=== PATIENT | male | born 1950 | race Caucasian/White ===

== ENCOUNTER 2018-08-11 | Inpatient (IN) | payer OTHER, SELFPAY ==
[2018-08-11 01:00] LABS: #Eosinphils 0.1 thou/uL (0.0-0.7); #Lymphocytes 1.7 thou/uL (1.20-3.40); #Monocytes 1.1 thou/uL (0.11-0.59); #Neutrophils 12.5 thou/uL (1.40-6.50); %Basophils 0.2 % (0.0-1.0); %Eosinophils 0.7 % (0.0-10.0); %Lymphocytes 10.9 % (21.0-51.0); %Monocytes 7.3 % (0.0-10.0); %Neutrophils 80.9 % (42.0-75.0); Hemoglobin 6.5 g/dL (14.0-18.0); Mean Corpuscular HGB CONC 33.5 g/dL (32.0-36.0); Mean Corpuscular Hemoglobin 32.9 pg (27.0-31.0); Mean Corpuscular Volume 98.2 fL (78.0-98.0); Mean Platelet Volume 7.1 fL (7.4-10.4); Platelet Count 367 thou/uL (130-400); RBC Distribution Width 13.8 % (11.5-14.5); Red Blood Cell (RBC) Count 1.98 mill/uL (4.70-6.10); White Blood Cell (WBC) Count 15.5 thou/uL (4.8-10.8)
[2018-08-11 01:02] LABS: INR-International Normal Ratio 1.4; PTT 30.3 SEC (22.9-36.1); Prothrombin Time 17.5 SEC (12.0-14.7)
[2018-08-11 01:17] LABS: ALT (SGPT) 15 U/L (8-55); AST (SGOT) 21 U/L (5-34); Albumin 2.7 g/dL (3.4-4.8); Alkaline Phosphatase 57 U/L (40-150); Anion Gap 15 mmol/L (10-20); BUN (Urea Nitrogen) 48 mg/dL (8.4-25.7); Bilirubin, Total 0.2 mg/dL (0.2-1.2); CK (CPK) 195 U/L (30-200); Calc. Creatinine Clearance 0 mL/min (70-130); Calcium 7.3 mg/dL (7.8-10.44); Carbon Dioxide 21 mmol/L (23-31); Chloride 96 mmol/L (98-107); Estimated GFR-MDRD 75; Glucose 117 mg/dL (80-115); Lipase 4 U/L (8-78); Potassium 5.3 mmol/L (3.5-5.1); Protein, Total 4.7 g/dL (5.8-8.1); Sodium 127 mmol/L (136-145)
[2018-08-11 01:22] LABS: CKMB 5.9 ng/mL (0-6.6); Troponin I Less than 0.010 ng/mL (< 0.028)
[2018-08-11] MEDS ORDERED: Pantoprazole 40 MG VIAL ONE (01:38)
[2018-08-11] MEDS ORDERED: Ondansetron HCl/PF 4 MG/2 ML Vial IVP PRN (02:20)
[2018-08-11] MEDS ORDERED: cefTRIAXone\\ROCEPHIN 1 GM in Sodium Chloride 0.9% 100 ML IVPB SCH (03:00)
[2018-08-11] MEDS: Piperacillin/Tazobactam 3.375 GM in Sodium Chloride 0.9% 100 ML IVPB SCH ×4 (03:30→20:59)
[2018-08-11] MEDS: Sodium Chloride 0.9% 1,000 ML IV SCH ×3 (03:30→22:20)
[2018-08-11] MEDS: Pantoprazole 80 MG in Sodium Chloride 0.9% 100 ML IVP SCH ×2 (03:34→23:29)
--- NOTE | 2018-08-11 04:25 | HP ---
PRIMARY CARE PHYSICIAN: Patient belongs to the [place]. CODE STATUS: FULL CODE. TIME OF EVALUATION: 1:50 a.m. CHIEF COMPLAINT: "I saw blood in my stool." HISTORY OF PRESENT ILLNESS: This is a 68-year-old male patient with past medical history of hypertension, high cholesterol, hyperlipidemia came to the hospital after having multiple lower gastrointestinal bleeding, with red blood and maroon blood per rectum. Patient is not a good historian, he reported he had some right flank pain, he had multiple episodes, with no clear triggers, no alleviating factors, patient was on aspirin, never had any GI workup. REVIEW OF SYSTEMS: Constitutional: No fever or chills or generalized weakness. Respiratory: No cough, sputum production, or shortness of breath. Cardiovascular: No chest pain or palpitations. Gastrointestinal: Right flank pain, abdominal tenderness, and red in the stools. No nausea, vomiting, diarrhea, or abdominal pain. RACING MANAGER: No dizziness, headache, or feeling lightheaded. Genitourinary: No burning on urination. Extremities: No leg swelling. All other systems reviewed were negative except for the findings mentioned above. PAST MEDICAL HISTORY: As mentioned in the HPI. PAST SURGICAL HISTORY: Left lung surgery. SOCIAL HISTORY: Lives with family. FAMILY HISTORY: Reviewed and noncontributory for current presentation. DRUG ALLERGIES: No known drug allergies reported. REPORTED MEDICATIONS: Hydrochlorothiazide, metoprolol, simvastatin, olanzapine , fosinopril. PHYSICAL EXAMINATION: VITAL SIGNS: On presentation, blood pressure 94/38 with heart rate 107, respiratory rate was 22, temperature 98.4, pain was 9/10. Blood pressure was improved after the first infusion of some IV fluids in ER. GENERAL APPEARANCE: Patient is alert, oriented, not in any acute distress. HEENT: Eyes, normal conjunctivae. Moist oral mucosa. Patient does have some mild blood in the mouth and in the nose. He reportedly fell and broke his nose. RESPIRATORY: Bilateral air entry. No rales, no wheezes, symmetric expansion. CARDIOVASCULAR: Normal rate, regular rhythm. No murmurs, no gallop, no edema. Patient occasionally mildly tachycardic with a heart rate of 107. ABDOMEN: Soft, tender. Normal bowel sounds. MUSCULOSKELETAL: Baseline range of motion and strength. EXTREMITIES: No tenderness. SKIN: Warm and intact. No pallor, rash, no redness. Peripheral pulses are present. Capillary refills seem to be intact. NEUROLOGIC: Baseline sensory. No evidence of any new focal weakness. Baseline speech. Cranial nerve seems to be intact. PSYCHIATRIC: Patient is in good mood. No anxiety, oriented, optimal judgment. IMAGING DATA: EKG was reviewed. The patient has sinus tachycardia with short VT at the rate of 101. No significant findings were seen on the EKG. QRS 72, QT corrected 453. Chest x-ray was reviewed by myself. Patient seems to have some chronic changes in the right lower lobe more than on the left, x-ray was rotated. Heart is paced to the right possible dextrocardia versus rotation of the x-ray. Official report is pending from the right ear bleeding, we will need to be followed. LABORATORY DATA: Labs are reviewed. Patient has a white count of 15.5, hemoglobin 6.5, MCV 98, platelet count 367, neutrophil 80.9. Coagulation was normal. INR mildly elevated. Chemistry: Sodium 127, potassium 5.3, chloride 96, carbon dioxide 21, anion gap 15, BUN 48, creatinine 0.99, GFR 75, glucose 117. Lactic acid 5.0, calcium 7.3. Total bilirubin 0.2, AST 21, ALT 15, alkaline phosphatase 57, CK 195. Troponin less than 9. Serum total protein 4.7 , albumin 2.7, globulin 2.0, lipase 4.9. ASSESSMENT AND PLAN: The patient will be placed in the hospital with following medical problems: 1. Severe gastrointestinal bleeding. Patient has multiple maroon stools. Reportedly, patient is receiving 3 units of transfusion, patient presented with shortness of breath and we will monitor hemoglobin, GI consult. Protonix, transfusion hydrate as needed to keep hemodynamic stability. 2. Possible right lower lobe aspiration pneumonia. Patient had reported that he fell on noncircumstances, patient is not a good historian. Right lower lobe had some haziness on the x-ray. We will cover with Zosyn at this point, patient also has leukocytosis, further plan to be adjusted depending on the initial workup in the patient's clinical course. 3. Mildly elevated INR, unclear etiology. Patient has any underlying liver disease, only medication reportedly taking was aspirin. At this point, we will transfuse, we will correct the INR if it were more than 1.5. 4. Hyponatremia, sodium 127 is moderate, we will monitor gradually, we will adjust treatment as needed. Patient will get some NS as part of the IV fluid resuscitation for the GI bleeding. We will adjust treatment depending on further reports later on. 5. Hyperkalemia. Potassium is elevated at 5.3, this is mild, we will monitor, we will adjust treatment as needed. 6. High BUN, normal creatinine relation is higher than 3:1, this might be in favor of upper GI bleeding. We will treat underlying condition. 7. Hyperglycemia. No reported history of diabetes likely due to acute physical distress, we will monitor, no need for any acute intervention at this point. We will adjust treatment as needed. 8. Lactic acidosis likely secondary to hypotension secondary to hypovolemia. Another possibility could be underlying sepsis, patient already covered with antibiotics, patient receiving aggressive treatment for GI bleeding and hypotension. 9. History of hypertension, this problem is uncontrolled, he is chronic. Patient presented with hypotension due to bleeding, we will restart home medications for now, this will need to be addressed later on. 10. Hyperlipidemia, this is chronic, low-cholesterol diet is advised. Continue simvastatin. MTDD
[2018-08-11] MEDS ORDERED: Sodium Chloride 0.9% 1,000 ML IV SCH ×3 (04:30→22:45)
[2018-08-11 05:52] LABS: #Lymphocytes 1.6 thou/uL (1.20-3.40); #Neutrophils 10.5 thou/uL (1.40-6.50); %Basophils 0.4 % (0.0-1.0); %Eosinophils 0.2 % (0.0-10.0); %Lymphocytes 11.9 % (21.0-51.0); %Monocytes 7.3 % (0.0-10.0); %Neutrophils 80.2 % (42.0-75.0); Hemoglobin 7.3 g/dL (14.0-18.0); Mean Corpuscular HGB CONC 33.3 g/dL (32.0-36.0); Mean Corpuscular Hemoglobin 31.5 pg (27.0-31.0); Mean Corpuscular Volume 94.5 fL (78.0-98.0); Mean Platelet Volume 7.2 fL (7.4-10.4); Platelet Count 276 thou/uL (130-400); RBC Distribution Width 14.1 % (11.5-14.5); Red Blood Cell (RBC) Count 2.32 mill/uL (4.70-6.10); White Blood Cell (WBC) Count 13.1 thou/uL (4.8-10.8)
[2018-08-11 05:53] LABS: Lactic Acid 2.4 mmol/L (0.5-2.2)
[2018-08-11 05:59] LABS: Anion Gap 12 mmol/L (10-20); BUN (Urea Nitrogen) 44 mg/dL (8.4-25.7); Calc. Creatinine Clearance 90 mL/min (70-130); Carbon Dioxide 22 mmol/L (23-31); Chloride 100 mmol/L (98-107); Estimated GFR-MDRD 90; Glucose 123 mg/dL (80-115); Sodium 129 mmol/L (136-145)
[2018-08-11] MEDS ORDERED: Prevnar 13-Val Conj/PF 0.5 ML SYRINGE IM ONE (06:30)
[2018-08-11 10:17] LABS: Hemoglobin 6.8 g/dL (14.0-18.0)
--- NOTE | 2018-08-11 12:10 | CT ---
PRELIMINARY REPORT/[facility]/EMERGENCY AFTER HOURS PROCEDURE: EXAM: CT Head Without Intravenous Contrast CLINICAL HISTORY: 68 years old, male; Injury or trauma; Fall; Initial encounter; Abrasion; Not specified; Patient HX: U nwitnessed fall, neck pain, headache TECHNIQUE: Axial computed tomography images of the head/brain without intravenous contrast. COMPARISON: No relevant prior studies available. FINDINGS: No definite acute skull fracture. The left mandibular condyle appears asymmetrically placed anteriorly relative to the right. This coul d be positional, but post-traumatic subluxation/dislocation not excluded. Please correlate clinically . Included paranasal sinuses are essentially clear. No acute intracranial hemorrhage or mass effect. Ventricle size is normal for age. There is mild, relatively symmetrical decreased attenuation in the periventricular white matter, like ly from microvascular disease. Suspect very small old lacunar infarcts in the basal ganglia regions bilaterally. No definite acute infarct by CT. IMPRESSION: No acute intracranial bleed or mass effect. Changes of microvascular disease, and very small old lacunar infarcts. The left mandibular condyle appears asymmetrically placed anteriorly relative to the right. This coul d be positional, but post-traumatic subluxation/dislocation not excluded. Please correlate clinically . Thank you for allowing us to participate in the care of your patient. Dictated and Authenticated by: Corby Hernandez MD 08/11/2018 3:51 AM Central Time ([place] & [place]) FINAL REPORT EMERGENT AFTER HOURS CT OF BRAIN PERFORMED WITHOUT CONTRAST ENHANCEMENT: HISTORY: Fall with neck pain and headache. FINDINGS: The ventricular and cisternal system shows fairly age-appropriate change. Decreased attenuation of t he periventricular white matter is consistent with some chronic white matte change. There are no sig ns for intracerebral hemorrhage or extraaxial fluid collections. Mastoid air cells and visualized si nuses appear clear. IMPRESSION: 1. No acute intracranial abnormalities. Chronic white matter change. 2. This report is in agreement with the temporary report issued by [facility]. POS: [facility]
--- NOTE | 2018-08-11 12:12 | CT ---
PRELIMINARY REPORT/[facility]/EMERGENCY AFTER HOURS PROCEDURE: EXAM: CT Cervical Spine Without Intravenous Contrast CLINICAL HISTORY: 68 years old, male; Injury or trauma; Fall; Initial encounter; Blunt trauma; Injury details: Unwitnes sed fall, neck pain, headache TECHNIQUE: Axial computed tomography images of the cervical spine without intravenous contrast. COMPARISON: No relevant prior studies available. FINDINGS: On axial CT images, no definite acute cervical spine fracture is visible. Sagittal and coronal reconstructions show no cervical spine fracture or subluxation. Mild to moderate degenerative disc changes and facet joint arthritis at several levels. No definite/significant disc herniation by CT, MRI could be more sensitive if clinically indicated. The left mandibular condyle appears asymmetrically placed anteriorly relative to the right. This coul d be positional, but post-traumatic subluxation/dislocation not excluded. Please correlate clinically . Prominent emphysematous changes in the upper lungs. IMPRESSION: No definite acute cervical spine fracture or subluxation by CT. Other findings discussed above. Thank you for allowing us to participate in the care of your patient. Dictated and Authenticated by: Corby Hernandez MD 08/11/2018 3:56 AM Central Time ([place] & [place]) FINAL REPORT CT CERVICAL SPINE WITHOUT CONTRAST: HISTORY: Fall. Posttraumatic pain. COMPARISON: None. FINDINGS: This report is in agreement with the preliminary report by [facility]. No posttraumatic sequelae. Additional findings as above, specifically with regard to the mandible. POS: [facility]
[2018-08-11] MEDS ORDERED: Octreotide Acetate 1,250 MCG in Sodium Chloride 0.9% 250 ML 250 ML IVPB SCH (12:30)
[2018-08-11] MEDS ORDERED: Octreotide Acetate 50 MCG/ML AMP SLOW IVP SCH (12:30)
[2018-08-11] MEDS ORDERED: Midazolam HCl 2 mg/2 ml Vial ONE (12:59)
[2018-08-11] MEDS ORDERED: Norepinephrine 8 MG/0.9% NS 250 ML ONE (13:34)
[2018-08-11] MEDS ORDERED: EPINEPHrine 1 MG/10 ML Abboject SYRINGE ONE (13:58)
[2018-08-11] MEDS ORDERED: ePHEDrine/0.9% NaCl/PF SYRINGE 50 mg/10 ml ONE (13:58)
[2018-08-11] MEDS ORDERED: Calcium Chloride 1 GM/10 ML Abboject SYRINGE ONE (13:58)
[2018-08-11] MEDS ORDERED: PHENYLEPHRINE-NS 100 MCG/ML 10 ML SYRINGE ONE (13:58)
[2018-08-11] MEDS ORDERED: PROPOFOL 200 MG/20 ML VIAL ONE (13:58)
[2018-08-11] MEDS ORDERED: Lidocaine 1% PF 5 ML VIAL ONE (13:58)
[2018-08-11] MEDS ORDERED: Dexamethasone 20 MG/5 ML VIAL ONE ×2 (13:58)
[2018-08-11] MEDS ORDERED: Succinylcholine Chloride 20 MG/ML 10 ml SYRINGE FS ONE (13:58)
[2018-08-11] MEDS ORDERED: Propofol 1,000 MG/100 ML VIAL IV ONE (14:39)
[2018-08-11 14:52] LABS: Actual Bicarbonate (HCO3a) 13.6 mEq/L (22-28); Base Excess (BEa) -17.4 mEq/L (-2.0 to +3.0); CO2 Tension 55.6 mmHg (35.0-45.0); Calcium, Ionized 1.06 mmol/L (1.12-1.30); Carboxyhemoglobin (COHb) 1.7 gm% (0.0-3.0); Hemoglobin (Hb) 11.3 g/dL (14.0-18.0); O2 Tension (PaO2) 137.8 mmHg (> 80.0); Potassium - ABG Lab 4.71 mmol/L (3.70-5.30)
[2018-08-11 14:54] LABS: Puncture Site LINE; pH, Arterial 7.01 (7.35-7.45)
[2018-08-11] MEDS ORDERED: Sodium Bicarb 50 MEQ/50 ML Abboject 8.4% SYRINGE ONE ×2 (15:09→16:35)
[2018-08-11] MEDS ORDERED: Sodium Bicarb 50 MEQ/50 ML Abboject 8.4% SYRINGE IVP SCH ×4 (15:15→17:00)
--- NOTE | 2018-08-11 15:22 | CON ---
DATE OF CONSULTATION: 08/11/2018 HISTORY OF PRESENT ILLNESS: Mr. Fernandes is a 68-year-old male. He has paranoid schizophrenia. H e has already pulled out of his central line. The nurses have placed him 2 midlines in him. He was admitted with hypotension, severe anemia, and a history of maroon stool. Blood pressures have been v ariable depending on agitation and position. OBJECTIVE: VITAL SIGNS: His heart rate is 123, respiratory rates in the 20s, oximetry is 94. GENERAL: Keeps his eyes closed. He is a little irritated, but cooperative. LUNGS: Clear. HEART: Regular rhythm. ABDOMEN: Soft and nontender. EXTREMITIES: Without clubbing, cyanosis, or edema. LABORATORY DATA: Hemoglobin 05:20 was 7.3, at 10:00 was 6.8. He is currently receiving blood when I evaluated him. His renal function was remarkable for a BUN of 44 with a creatinine of 0.8. Lactate was up, but is improved. Albumin was 2.7. Family says he has been spending a lot of time st anding up, bend over a table, complaining of back pain for the last few weeks. IMPRESSION: 1. Gastrointestinal blood loss by history. He has had no rectal bleeding since he has been admitted . 2. Back pain. I would wonder about retroperitoneal bleeding, but he does not really have a history of anything that would normally lead to retroperitoneal bleeding since his anticoagulation. Prior to admission, he was on hydrochlorothiazide, a beta riaz, a lipid drug, fosinopril, and keith zapine. He is currently going down for endoscopy. Intubation may be appropriate just because of his agitatio n, and once we document he is not bleeding, then we could quickly wean him from mechanical ventilatio n. He will continue with transfusions. We will be happy to follow with the other physician's caring for him. We will examine him after his endoscopy when he is intubated. Critical care time was 30 minutes.
[2018-08-11 15:36] LABS: Actual Bicarbonate (HCO3a) 16.4 mEq/L (22-28); Base Excess (BEa) -11.3 mEq/L (-2.0 to +3.0); Carboxyhemoglobin (COHb) 1.1 gm% (0.0-3.0); Hemoglobin (Hb) 10.6 g/dL (14.0-18.0); O2 Tension (PaO2) 113.3 mmHg (> 80.0); Potassium - ABG Lab 4.34 mmol/L (3.70-5.30); Puncture Site LINE; pH, Arterial 7.19 (7.35-7.45)
[2018-08-11] MEDS ORDERED: Fentanyl BOLUS 250 ML IVPB PRN (15:36)
[2018-08-11] MEDS ORDERED: DISCONTINUE PREVIOUS NARCOTIC PAIN MEDICATIONS AND BENZODIAZEPINES FS SCH (15:36)
[2018-08-11] MEDS: Lorazepam 2 MG/ML VIAL SLOW IVP PRN ×2 (15:46→20:59)
[2018-08-11] MEDS: fentaNYL Citrate/PF 2,000 MCG in Sodium Chloride 0.9% 60 ML IV SCH (16:01)
[2018-08-11 16:28] LABS: Actual Bicarbonate (HCO3a) 20.8 mEq/L (22-28); Base Excess (BEa) -7.3 mEq/L (-2.0 to +3.0); CO2 Tension 53.6 mmHg (35.0-45.0); Calcium, Ionized 0.98 mmol/L (1.12-1.30); Carboxyhemoglobin (COHb) 1.3 gm% (0.0-3.0); Hemoglobin (Hb) 11.4 g/dL (14.0-18.0); O2 Tension (PaO2) 86.3 mmHg (> 80.0); Potassium - ABG Lab 4.37 mmol/L (3.70-5.30)
[2018-08-11 16:30] LABS: Puncture Site LINE; pH, Arterial 7.21 (7.35-7.45)
[2018-08-11 16:50] LABS: Hemoglobin 10.6 g/dL (14.0-18.0); Mean Corpuscular HGB CONC 32.5 g/dL (32.0-36.0); Mean Corpuscular Hemoglobin 29.6 pg (27.0-31.0); Mean Platelet Volume 7.8 fL (7.4-10.4); Platelet Count 130 thou/uL (130-400); RBC Distribution Width 13.3 % (11.5-14.5); Red Blood Cell (RBC) Count 3.59 mill/uL (4.70-6.10)
--- NOTE | 2018-08-11 16:53 | PRG ---
DATE OF SERVICE: 08/11/2018 SUBJECTIVE: Mr. Fernandes was evaluated an endoscopy after his EGD. He had a massive duodenal ulce r that was injected. It was not actively bleeding. He did require a large volume of blood products while he was in the en doscopy suite. He was transferred up to the Critical Care Unit. His pH on blood gas was just slight ly over 7.0. His rate was turned from 16-30 with volume ventilation. He was given 3 amps of bicarbonate. Repeat blood gas 30 minutes later shows a pH just under 7.20. He is currently receiving 3 more amps of bicarbonate. We will repeat a blood gas in 45 minutes. His hemoglobin in first blood gas was approximately 11 gra ms. Second blood gas approximately 10 grams. This will continue to be monitored. Critical care time, additional 45 minutes.
[2018-08-11 16:58] LABS: ALT (SGPT) 357 U/L (8-55); AST (SGOT) 474 U/L (5-34); Albumin 2.3 g/dL (3.4-4.8); Alkaline Phosphatase 41 U/L (40-150); Anion Gap 18 mmol/L (10-20); BUN (Urea Nitrogen) 37 mg/dL (8.4-25.7); Bilirubin, Total 0.3 mg/dL (0.2-1.2); Calc. Creatinine Clearance 87 mL/min (70-130); Calcium 6.7 mg/dL (7.8-10.44); Carbon Dioxide 19 mmol/L (23-31); Chloride 108 mmol/L (98-107); Estimated GFR-MDRD 86; Globulin 1.5 g/dL (2.4-3.5); Glucose 138 mg/dL (80-115); Magnesium 1.3 mg/dL (1.6-2.6); Phosphorus 4.5 mg/dL (2.3-4.7); Potassium 4.4 mmol/L (3.5-5.1); Protein, Total 3.8 g/dL (5.8-8.1); Sodium 141 mmol/L (136-145)
[2018-08-11] MEDS ORDERED: Sodium Bicarbonate 150 MEQ in Dextrose 5% in Water 1,000 ML IV SCH (17:00)
[2018-08-11 17:02] LABS: Troponin I 0.058 ng/mL (< 0.028)
[2018-08-11 17:06] LABS: CKMB 13.9 ng/mL (0-6.6)
[2018-08-11 17:06] LABS: INR-International Normal Ratio 1.7; PTT 32.2 SEC (22.9-36.1); Prothrombin Time 20.4 SEC (12.0-14.7)
[2018-08-11] MEDS ORDERED: Potassium Chloride 40 MEQ in Premix Bag 1 BAG IVPB PRN (17:18)
[2018-08-11] MEDS ORDERED: Potassium Phosphate 15 MMOL in Sodium Chloride 0.9% 250 ML 250 ML IV PRN (17:18)
[2018-08-11] MEDS ORDERED: Magnesium 2 GM/NS 0.9% 100 ML 2 GM in Premix Bag 1 BAG IVPB PRN (17:18)
[2018-08-11] MEDS ORDERED: CCU ELECTROLYTE REPLACEMENT PROTOCOL FS PRN (17:18)
[2018-08-11] MEDS ORDERED: Potassium Chloride 20 MEQ TAB PO PRN (17:18)
[2018-08-11] MEDS ORDERED: Potassium Phosphate 9 MMOL in Sodium Chloride 0.9% 100 ML IVPB PRN (17:18)
[2018-08-11] MEDS ORDERED: Magnesium Oxide 400 MG TAB PO PRN ×2 (17:18)
[2018-08-11] MEDS ORDERED: Potassium Phosphate 12 MMOL in Sodium Chloride 0.9% 250 ML 250 ML IV PRN (17:18)
[2018-08-11 17:20] LABS: Band 19 % (5-11); Lymphocytes 3 % (21-51); MDiff Complete? YES; Monocytes 4 % (0-10); Neutrophil 74 % (42-75); PLT Morphology Comment Appears Adequate
[2018-08-11] MEDS ORDERED: Magnesium Sulfate 2 GM in Sodium Chloride 0.9% 100 ML IVPB SCH (17:30)
[2018-08-11 17:45] LABS: Base Excess (BEa) -1.2 mEq/L (-2.0 to +3.0); CO2 Tension 48.4 mmHg (35.0-45.0); Calcium, Ionized 0.92 mmol/L (1.12-1.30); Carboxyhemoglobin (COHb) 1.1 gm% (0.0-3.0); Hemoglobin (Hb) 10.4 g/dL (14.0-18.0); O2 Tension (PaO2) 65.3 mmHg (> 80.0); Potassium - ABG Lab 4.24 mmol/L (3.70-5.30); pH, Arterial 7.33 (7.35-7.45)
[2018-08-11 17:48] LABS: Puncture Site LINE
--- NOTE | 2018-08-11 18:20 | PRG ---
DATE OF SERVICE: 08/11/2018 SUBJECTIVE: Ruiz Fernandes's hemodynamics have been stable. His hemoglobin has been stable on s erial blood gases. It is approximately 10 g now. His pH is up over 7.3 now with a bicarbonate drip, multiple bicarbonate boluses and hyperventilation. Hopefully, there will be no recurrence of bleeding and his acid base disorder will gradually resolve by the morning. I doubt he will be extubated in the morning. We will continue with the current crit ical care. We will repeat another blood gas later this evening.
[2018-08-11] MEDS: Sodium Bicarbonate 150 MEQ, Admixture Fee 1 EACH in Dextrose 5% in Water 1,000 ML IV SCH ×2 (18:26→23:29)
--- NOTE | 2018-08-11 18:52 | PDOC.EVN ---
Event Note - Event Note Event Note: Chart reviewed and pt seen while on IMCU. Discussed with GI service. Pt with large-volume GI bleed, found to have a large gastric ulcer on EGD. General surgery has been consulted by GI service. If he bleeds again tonight, may need emergent surgery.
[2018-08-11 20:05] LABS: Hemoglobin 9.8 g/dL (14.0-18.0)
--- NOTE | 2018-08-11 22:13 | CON ---
DATE OF CONSULTATION: 08/11/2018 CHIEF COMPLAINT: GI bleed. HISTORY: This is a 68-year-old male who came to the emergency room this morning with rectal bleeding , had an EGD this afternoon showing erosive esophagitis and a large duodenal ulcer with active bleedi ng. This was cauterized. He is currently receiving blood products. PAST MEDICAL HISTORY: Significant for hypertension, hyperlipidemia, and paranoid schizophrenia. PAST SURGICAL HISTORY: He has had some type of lung surgery. ALLERGIES: No known drug allergies. MEDICATIONS: Hydrochlorothiazide, metoprolol, simvastatin, olanzapine, and fosinopril. PHYSICAL EXAMINATION: VITAL SIGNS: His temperature is 98.8, pulse 128, blood pressure 135/53. GENERAL: He is intubated and sedated on a vent. HEENT: Otherwise, unremarkable. LUNGS: Clear. HEART: Regular rate and rhythm. ABDOMEN: Distended. He is passing melena actively. LABORATORY DATA: His last H&H was at 10:00 a.m. which was 6.8 and 20.8. At that time, he has been g iven 3 units of packed cells. He has since been given at least another 3 units of packed cells and F FP and platelets. ASSESSMENT: Upper secondary to large duodenal ulcer. PLAN: We will continue to monitor carefully. He may need surgical intervention.
[2018-08-11] MEDS: Albumin 25% 25 GM/100 ML BOT IVPB SCH (22:39)
[2018-08-11 23:12] LABS: Actual Bicarbonate (HCO3a) 26.6 mEq/L (22-28); Base Excess (BEa) 3.4 mEq/L (-2.0 to +3.0); CO2 Tension 35.1 mmHg (35.0-45.0); Calcium, Ionized 1.01 mmol/L (1.12-1.30); Carboxyhemoglobin (COHb) 1.2 gm% (0.0-3.0); Hemoglobin (Hb) 9.8 g/dL (14.0-18.0); O2 Tension (PaO2) 62.9 mmHg (> 80.0); Potassium - ABG Lab 3.61 mmol/L (3.70-5.30); Puncture Site ALINE
[2018-08-11 23:13] LABS: ALV-art Gradient 178.425 (0-20)
[2018-08-12] MEDS ORDERED: Sodium Chloride 0.9% 1,000 ML IV SCH (01:00)
[2018-08-12 01:38] LABS: Actual Bicarbonate (HCO3a) 27.7 mEq/L (22-28); Base Excess (BEa) 2.2 mEq/L (-2.0 to +3.0); CO2 Tension 47.8 mmHg (35.0-45.0); Calcium, Ionized 1.02 mmol/L (1.12-1.30); Carboxyhemoglobin (COHb) 1.6 gm% (0.0-3.0); Hemoglobin (Hb) 9.6 g/dL (14.0-18.0); O2 Tension (PaO2) 66.2 mmHg (> 80.0); pH, Arterial 7.38 (7.35-7.45)
[2018-08-12 01:39] LABS: Puncture Site ALINE
[2018-08-12 02:31] LABS: Actual Bicarbonate (HCO3a) 28.8 mEq/L (22-28); Base Excess (BEa) 3.4 mEq/L (-2.0 to +3.0); CO2 Tension 47.7 mmHg (35.0-45.0); Calcium, Ionized 1.02 mmol/L (1.12-1.30); Carboxyhemoglobin (COHb) 1.3 gm% (0.0-3.0); Hemoglobin (Hb) 9.2 g/dL (14.0-18.0); O2 Tension (PaO2) 65.8 mmHg (> 80.0); Potassium - ABG Lab 3.71 mmol/L (3.70-5.30)
[2018-08-12 02:32] LABS: ALV-art Gradient 159.775 (0-20); Puncture Site ALINE
[2018-08-12] MEDS: Piperacillin/Tazobactam 3.375 GM in Sodium Chloride 0.9% 100 ML IVPB SCH ×4 (02:55→20:36)
[2018-08-12] MEDS ORDERED: Midazolam HCl 2 mg/2 ml Vial ONE ×2 (03:11→04:32)
[2018-08-12] MEDS ORDERED: Fentanyl 100 MCG/2 ML VIAL ONE ×2 (03:11→04:45)
[2018-08-12] MEDS ORDERED: Promethazine HCl 25 MG/ML VIAL IM/IV PRN (04:53)
[2018-08-12] MEDS: Morphine 4 MG/ML VIAL SLOW IVP PRN ×3 (05:22→14:42)
[2018-08-12 05:32] LABS: INR-International Normal Ratio 1.5; Prothrombin Time 18.3 SEC (12.0-14.7)
[2018-08-12 05:45] LABS: ALT (SGPT) 401 U/L (8-55); AST (SGOT) 618 U/L (5-34); Albumin 2.6 g/dL (3.4-4.8); Alkaline Phosphatase 40 U/L (40-150); Anion Gap 10 mmol/L (10-20); BUN (Urea Nitrogen) 22 mg/dL (8.4-25.7); Bilirubin, Total 0.4 mg/dL (0.2-1.2); Calc. Creatinine Clearance 107 mL/min (70-130); Carbon Dioxide 31 mmol/L (23-31); Chloride 108 mmol/L (98-107); Estimated GFR-MDRD Greater than 90; Globulin 1.8 g/dL (2.4-3.5); Glucose 134 mg/dL (80-115); Phosphorus 3.9 mg/dL (2.3-4.7); Potassium 4.2 mmol/L (3.5-5.1); Protein, Total 4.4 g/dL (5.8-8.1); Sodium 145 mmol/L (136-145)
[2018-08-12] MEDS: Albumin 25% 25 GM/100 ML BOT IVPB SCH ×4 (06:05→23:08)
[2018-08-12 06:08] LABS: Hemoglobin 9.5 g/dL (14.0-18.0); Mean Corpuscular HGB CONC 33.1 g/dL (32.0-36.0); Mean Corpuscular Volume 90.4 fL (78.0-98.0); Mean Platelet Volume 7.8 fL (7.4-10.4); Platelet Count 158 thou/uL (130-400); Red Blood Cell (RBC) Count 3.18 mill/uL (4.70-6.10); White Blood Cell (WBC) Count 13.3 thou/uL (4.8-10.8)
[2018-08-12 06:10] LABS: Band 18 % (5-11); Lymphocytes 6 % (21-51); MDiff Complete? YES; Monocytes 7 % (0-10); Neutrophil 69 % (42-75)
--- NOTE | 2018-08-12 06:21 | CON ---
DATE OF CONSULTATION: 08/11/2018 History comes from the patient's mother. HISTORY OF PRESENT ILLNESS: Mr. Fernandes is a 68-year-old man, who lives in [facility], near his mother. He has schizophrenia. He gets [facility] care from [facility] and he sees Dr. Soni there. Connie arently for several weeks now, he has been having some dizziness and issues with standing at times. Apparently, his mother states she had gone to run some errands and came home yesterday afternoon when he did not come out of his house when she pulled him to drive. She went over to check on him, and roney dickens complained of having a lot of diarrhea at that time. She had seen some of his bowel movements all that was bloody. She had him lay down on the floor, as he was very weak and EMS was summoned. He ca me to the hospital here and was found to have a hemoglobin of 6.5 at about 12:30 last night, his whit e count was 15, platelet count was 367. INR was 1.4 and a comp met profile was normal for a BUN of 4 8, creatinine of 0.9, sodium 127, potassium 5.3, albumin of 2.7, a serum protein of 4.7, and lipase o f 4. He was transfused a unit of blood at around 1:00 in the morning and it seems like a second one around 2 in the morning. Apparently, he remained stable, but then, I was called by one of the reside nts in the ICU rotation around 11 or 12 at that time his blood pressure was in the 60s. His hemoglob in at 5 in the morning had come to 7.3 and at 10 in the morning had been to 6.8. At that time, talked to the nurses, he did not have adequate IV access, just one IV. They are annabelle g a second midline, ordered more blood transfusions and he was brought to endoscopy urgently. In talking with the patient's family briefly before endoscopy, they state that he does take a lot of NSAIDs, drinks about 6 beers per week. He has been complaining of some epigastric pain at times. Th ey did not recall ever seen him vomit. They are not sure if he has been losing weight. MEDICATIONS: At home Zocor, olanzapine, Lopressor, hydrochlorothiazide, fosinopril. MEDICATIONS HERE: DuoNeb, octreotide, Zofran, Protonix, Zosyn, normal saline at 100. PAST MEDICAL HISTORY: Hypertension and hyperlipidemia. PAST SURGICAL HISTORY: He has had some type of left lung surgery for fluid collection, apparently th is was benign. REVIEW OF SYSTEMS: Chronic back pain, complains of right flank pain chronically, no chest pain, no d yspnea, no nausea or vomiting. ALLERGIES: None known. Medications as above. PHYSICAL EXAMINATION: VITAL SIGNS: Pulse 124, blood pressure 94/51, temperature 98. GENERAL: He is pale. HEENT: Oropharynx without lesions. NECK: Supple. LUNGS: Clear. HEART: Regular rate and rhythm without clicks or murmurs. ABDOMEN: Soft, some fluid wave or shifting dullness, but is not tense. There is no palpable h epatosplenomegaly. RECTAL EXAM: Reveals gross melena. EXTREMITIES: No clubbing, cyanosis, or edema. His nails are poorly kept. NEUROLOGIC: He is alert and oriented to person, place, and time. ASSESSMENT: 1. Acute gastrointestinal bleed. 2. Hemorrhagic shock. 3. History of chronic back pain and flank pain. PLAN: 1. Accelerated resuscitation had been discussed with ICU nurses and staff. 2. Urgent endoscopy. 3. transfusion protocol as necessary. 4. The patient will be intubated for endoscopy. I have discussed risks, benefits, possible complica tions with the patient's sisters and mother, and we will proceed as soon as we can get him resuscitat ed.
--- NOTE | 2018-08-12 06:32 | OP ---
DATE OF PROCEDURE: 08/12/2018 PREOPERATIVE DIAGNOSIS: Bleeding posterior duodenal ulcer. SURGEON: Isael Pope M.D. PROCEDURE: Exploratory laparotomy, pyloroplasty and oversew bleeding ulcer. INDICATIONS: A 68-year-old male who was admitted with a GI bleed. An upper endoscopy revealed a ble eding posterior duodenal ulcer. This had been cauterized and he seemed to stabilize for a few hours, then he became more tachycardic again and hypotensive. He received 9 units of packed cells as well as 2 FFP and 1 of platelets. FINDINGS: Large necrotic posterior duodenal ulcer about 2 cm in diameter. PROCEDURE IN DETAIL: After informed consent was obtained, the patient was taken to the operating mandy m and given general endotracheal anesthesia. He was placed in the supine position. The abdomen was prepped and draped in usual fashion. An upper midline incision was performed. The subcu divided sha rply. The fascia incised and the abdomen explored. A Bookwalter retractor was used and the duodenum was mobilized. The gallbladder, there were adhesions between the gallbladder and the duodenum. The se were taken down sharply. The duodenum was kocherized and you could feel some inflammation posteri or. The pylorus identified and was opened anteriorly longitudinally with electrocautery. Then, retr action was achieved utilizing ring forceps and an Army-Iantha. There was a necrotic ulcer bed. There was some oozing. The ulcer was closed transversely with interrupted [id number] of 2-0 Vicryl t o stop any oozing. This was irrigated. Hemostasis assured. Then the duodenum was closed transverse ly, opened longitudinally, but closed transversely for a pyloroplasty. This was done with interrupte d simple sutures of 2-0 Vicryl. Hemostasis was assured. The omentum was used to patch the repair by incorporating it within the sutures and 3 of them were tied down to keep it in place. The abdomen i rrigated and irrigation fluid removed. Hemostasis assured. The fascia closed with a running looped #1 PDS. Subcutaneous irrigated and skin closed with skin josey. The patient tolerated the procedu re well and was transferred to ICU in serious, but stable condition.
[2018-08-12 06:54] LABS: Actual Bicarbonate (HCO3a) 29.9 mEq/L (22-28); Base Excess (BEa) 4.7 mEq/L (-2.0 to +3.0); CO2 Tension 47.6 mmHg (35.0-45.0); Carboxyhemoglobin (COHb) 1.3 gm% (0.0-3.0); Hemoglobin (Hb) 9.8 g/dL (14.0-18.0); O2 Tension (PaO2) 56.2 mmHg (> 80.0); Potassium - ABG Lab 3.65 mmol/L (3.70-5.30); pH, Arterial 7.42 (7.35-7.45)
[2018-08-12 06:55] LABS: Puncture Site ALINE
[2018-08-12] MEDS: Lorazepam 2 MG/ML VIAL SLOW IVP SCH ×2 (08:15→20:37)
[2018-08-12] MEDS: Haloperidol Lactate 5 MG/ML VIAL IM SCH ×4 (08:19→20:36)
[2018-08-12] MEDS: Sodium Chloride 0.9% 1,000 ML IV SCH (09:15)
[2018-08-12] MEDS ORDERED: Vecuronium 10 MG VIAL ONE (09:36)
[2018-08-12] MEDS ORDERED: Labetalol HCl 100 MG/20 ML VIAL ONE (09:36)
[2018-08-12] MEDS: Hydrocortisone Sod Succ/PF 100 mg/2 ml Vial IVP SCH ×2 (10:15→16:58)
[2018-08-12 10:17] LABS: Hemoglobin 8.9 g/dL (14.0-18.0)
[2018-08-12] MEDS: fentaNYL Citrate/PF 2,000 MCG in Sodium Chloride 0.9% 60 ML IV SCH (10:24)
[2018-08-12] MEDS ORDERED: Metoprolol Tartrate 5 MG/5 ML VIAL IVP SCH ×2 (10:45→12:45)
[2018-08-12] MEDS: Sodium Bicarbonate 150 MEQ, Admixture Fee 1 EACH in Dextrose 5% in Water 1,000 ML IV SCH ×3 (11:05→23:08)
[2018-08-12] MEDS: Pantoprazole 80 MG, Admixture Fee 1 EACH in Sodium Chloride 0.9% 100 ML IVP SCH ×2 (11:08→21:46)
--- NOTE | 2018-08-12 11:18 | OP ---
DATE OF PROCEDURE: 08/11/2018 PROCEDURE: EGD with control of hemorrhage. ANESTHESIA: General endotracheal anesthesia. POSTOPERATIVE DIAGNOSES: 1. Severe LA grade D erosive esophagitis, circumferential in the distal third of the esophagus, line ar streaks in the proximal half of the esophagus. 2. Large duodenal ulcer with adherent clot, active oozing and 3 visible vessels treated with removal of clot, injection of 1:10,000 epinephrine 15 mL and cautery of 3 visible vessels with 10-Chinese hea ter probe. RECOMMENDATIONS: 1. Keep the patient intubated. 2. Keep Protonix drip on. 3. Surgical consultation. If the patient is rebleeding, will need to go to the operating room for d efinitive therapy on this. 4. Serial H and Hs. 5. Once acute episode imaging her back or flank with CT or MRI as he has had chronic pain in t hese areas and has been taking heavy doses of NSAIDs. PROCEDURE IN DETAIL: The patient's family was informed of the risks, benefits, and possible complica tions of endoscopy including perforation, bleeding, reactions to medication, aspiration. Aggressive resuscitation was begun in the ICU and he was brought to the endoscopy suite. There, he was sedated and put to sleep for airway protection with general anesthesia. He was given 3 units of blood and en doscopy, was given pressors and also given Decadron as he was not responding to pressors or fluids. Ultimately, his pressure did come up. The endoscope was advanced into the esophagus, stomach, and se cond and third portion of the duodenum. The esophagus was notable for LA grade D erosive esophagitis with circumferential ulceration in the distal esophagus. There was no active bleeding, however. Th e endoscope was advanced into the stomach and there was some clot in the cardia of the stomach and al kale the proximal greater curve and this was irrigated and suctioned away and there was no active blee ding noted here. The antrum of the stomach was normal, but in the duodenal bulb, there was a large a mount of clot, this was removed with the snare in pieces. Ultimately, a 2 to 2.5 cm deep ulcer was n oted at the superior aspect of the duodenal bulb towards the apex. This was injected with 1:10,000 e pinephrine, then the remainder of small clot was removed and 3 visible vessels were cauterized. All bleeding stopped. The ulcer base was dry. Attention was then turned to the GE junction again to martha e sure there was not a bleeding, Michelle-Fuller tear, or gastric or esophageal varices and there were not. The scope was then returned to forward position. The duodenum was reinvestigated. After 5 min utes with no bleeding, the scope was removed. The patient was brought to the ICU in stable condition . Findings were discussed with the ICU staff and the internal medicine physician and General Surgery educational institution curator for consultation.
[2018-08-12 12:51] LABS: Troponin I 0.083 ng/mL (< 0.028)
[2018-08-12] MEDS: Diltiazem 125 MG in Sodium Chloride 0.9% 100 ML IVPB SCH (13:08)
[2018-08-12 15:04] LABS: Actual Bicarbonate (HCO3a) 33.8 mEq/L (22-28); Base Excess (BEa) 6.5 mEq/L (-2.0 to +3.0); Calcium, Ionized 1.03 mmol/L (1.12-1.30); Carboxyhemoglobin (COHb) 1.3 gm% (0.0-3.0); Hemoglobin (Hb) 9.6 g/dL (14.0-18.0); Potassium - ABG Lab 3.69 mmol/L (3.70-5.30); pH, Arterial 7.33 (7.35-7.45)
[2018-08-12 15:06] LABS: CO2 Tension 65.8 mmHg (35.0-45.0)
[2018-08-12 15:08] LABS: Puncture Site LINE
[2018-08-12] MEDS ORDERED: Diazepam 10 MG/2 ML SYRINGE IVP SCH (16:00)
--- NOTE | 2018-08-12 16:21 | RAD ---
CHEST ONE VIEW: 08/12/18 HISTORY: Chest pain, hypoxia. COMPARISON: Radiograph 08/11/18. FINDINGS: Moderate edema. Worsened from the comparison examination. Multiple right sided rib fractures. Heart s ize is mildly enlarged. The patient is intubated. Endotracheal tube tip at the level of the clavicles. Enteric tube tip not w ell seen. IMPRESSION: 1. Cardiomegaly and extensive pulmonary edema and small effusions. 2. Right sided rib fractures. POS: [facility]
[2018-08-12] MEDS: Metoprolol Tartrate 5 MG/5 ML VIAL IVP SCH ×2 (16:45→21:02)
--- NOTE | 2018-08-12 16:50 | PRG ---
DATE OF SERVICE: 08/12/2018 SUBJECTIVE: Mr. Fernandes is resting comfortably in bed. He is intubated apparently last night. I nterval history is notable for the fact after endoscopy, he was acidotic, but this improved with furt her transfusion of blood. His hemoglobin was to 10.6 at 1629 that was after about 8 units of blood. His hemoglobin has remained stable 9.8 and 8.9 this morning. He received some fluid boluses. He wa s having some irregular heart rate. OBJECTIVE: VITAL SIGNS: Pulse is 102, temperature is 98.2, blood pressure 102/47. LUNGS: Clear. HEART: Regular rate and rhythm. ABDOMEN: Slightly protuberant. NG tube reveals clear bile. LABORATORY DATA: INR is 1.5. PH 7.42. Electrolytes normal. BUN and creatinine are 22 and 0.82. AST, ALT bumped up to 618 and 401. Cortisol is 5.8. Lipase is normal. Sodium today is 145. ASSESSMENT: 1. Upper gastrointestinal bleed from duodenal ulcer, likely related to NSAIDs, but it is unclear. H e will need to Helicobacter pylori checked. We had control bleeding at time of endoscopy yesterday, but he never really had any overt bowel movements and was very dehydrated and very anemic, essentiall y got about 9 units of blood, 8 units of blood documented in the blood bank, but 9-10 by my count jose luis t was documented in the computer over the next day or so, but after endoscopy, he was unstable in the ICU with intermittent tachycardic episodes and slight hypotension, which showed no signs of ov ert bleeding. Decision was made by surgery and ICU staff taken to the OR as he was felt to be high r isk for rebleed with a very large size of the ulcer and several visible vessels noted on the surface. Dr. Pope apparently open the duodenum as well as ulcer crater and the duodenal ulcer was oversewn. 2. Arrhythmias. Possible atrial flutter. He has been seen by Cardiology . 3. Low cortisol. He has been placed on empiric hydrocortisone for a couple days and talk with Dr. Lyndon pereira and we will get a Cortrosyn stim test on the day or two. RECOMMENDATIONS: Continue IV PPI. Tube feed when appropriate from surgery standpoint. Monitor H and Hs.
--- NOTE | 2018-08-12 17:35 | CON ---
DATE OF CONSULTATION: 08/12/2018 DATE OF ADMISSION: 08/11/2018 INDICATION FOR CONSULTATION: A 68-year-old gentleman with tachycardia. HISTORY OF PRESENT ILLNESS: This very unfortunate 68-year-old gentleman who has a history of paranoid schizophrenia and has a history of hypertension, hypercholesterolemia, was admitted after significant GI bleed and underwent a repair surgically of a bleeding duodenal ulcer. When he was admitted, his hemoglobin was 6.5, is now increased up to 9.5 after being given multiple units. I believe he has been having 9 units of packed red blood cells, two fresh frozen plasma and at least, one platelet. We were asked to see him in the Intensive Care Unit. The patient intermittently has a rapid heart rate, what appear to be sinus tachycardia what appears to be more of an SVT. This occurs after and they will convert back to sinus rhythm. He will easily be be confirmed to sinus rhythm with a carotid massage. Once he is back in sinus rhythm, he will have a PAC and we will then convert back to the SVT. He has been given 2 doses of IV Lopressor, which will slow the heart rate down, but once it is no longer available to the tissue, then he will again convert back to the SVT intermittently. At this time, the patient is sedated and intubated and most of the records were obtained from review of his records and talking to the staff. He also had a CT, I believe of the head which had no acute changes and no acute findings. He has had no previous cardiac history that we are aware of, except for the hypertension. PAST MEDICAL HISTORY: Significant for left lung surgery, paranoid schizophrenia and now the duodenal ulcer repair. MEDICATIONS: Prior to admission included hydrochlorothiazide, beta blockers, anti-hypercholesterolemia medication, fosinopril and olanzapine. ALLERGIES: None. SOCIAL HISTORY: He lives with his family and uncertain whether or not he has any alcohol or tobacco abuse. FAMILY HISTORY: Noncontributory. REVIEW OF SYSTEMS: Not obtainable at this time, but according to the records from the other physicians, there does not appear to be any acute complaints on the review of systems. PHYSICAL EXAMINATION: GENERAL: Reveals an elderly gentleman who is on the ventilator. He is under mild sedation. He does arouse with stimulation. VITAL SIGNS: Blood pressure is 132/53, heart rate is anywhere between 100-160 depending whether or not he is in SVT at that time. Respiratory rate is in the 20s, on the ventilator. He is afebrile. HEENT: Shows head to be normocephalic and atraumatic. Carotid pulses are present. There were no bruits. There is no JVD. The thyroid did not appear to be enlarged. CHEST: Clear to auscultation without any rales, rhonchi or wheezing. CARDIOVASCULAR: Exam at times very regular and normal rhythm. At other times, it is very tachycardic, but still remains regular. There were no gross murmurs , heaves, thrills, bruits or rubs. ABDOMEN: Has a surgical dressing in place, did not hear any bowel sounds at this time. EXTREMITIES: Showed no clubbing, cyanosis or edema. Pedal pulses are present, but somewhat diminished. He has very poor hygiene. He has very long toenails. NEUROLOGIC: The patient has mild sedations on the ventilator. SKIN: Warm and dry. EKG shows what appears to be normal sinus rhythm without any acute changes, then he develops SVT with some nonspecific T-wave changes laterally. Heart rate is anywhere between 100 and 160. LABORATORY DATA: Shows hemoglobin of 9.5. His troponin I was 0.58 with a BNP of 57, MB is 13.9, INR was 1.7 and 1.5, AST was 618, ALT was 401. IMPRESSION: 1. Tachycardia, which appears to be SVT in nature. This occurs after the patient has PACs and then he goes into the rapid heart rate. It seems to be controlled by IV Lopressor for short periods of time. We will start him on IV diltiazem and see if this will control the heart rate. He may need to undergo an ablation in the future for the SVT. It is the most likely the best cure for his SVT and then would not have to worry about medications in the future probably. We will ask Dr. Stewart to see the patient once he becomes more stable or if he continues to have problems controlling the heart rate. At this time, he is not a good candidate to undergo an ablation due to his anemia from the gastrointestinal bleeding. 2. Gastrointestinal bleed with significant blood loss and elevated cardiac enzymes. The cardiac enzymes, most likely due to demand ischemia associated with the anemia and metabolic acidosis suffered by the severe anemia. 3. Hypertension. This is under good control at this time. 4. Hypercholesterolemia. He is not on any medications for this, will need to review these records in the future and check the levels and if necessary, then start statin medications. 5. Abnormal liver functions, which most likely was due to the acute anemia and acidosis associated with his GI bleed. Hopefully, this will recover. 6. Elevated INR, most likely which is associated with the acute liver function abnormalities. We will also obtain an echocardiogram for evaluation of the left ventricular systolic function and chamber dimensions. No any change I would make at this time. We will start him on IV diltiazem for control of his SVT and if necessary we will ask for the associate consulting engineer to assist in his care. FARHAN
--- NOTE | 2018-08-12 18:18 | PDOC.PN ---
- Subjective Encounter Start Date: 08/12/18 Encounter Start Time: 11:00 Pt seen for followup re: GI bleed. Intubated, unable to complete ROS. - Objective Resuscitation Status: Resuscitation Status FULL:Full Resuscitation MAR Reviewed: Yes Vital Signs & Weight: Vital Signs (12 hours) Temp Pulse Resp BP Pulse Ox 08/12/18 16:00 98.5 F 24 H 08/12/18 14:33 120 H 153/58 H 08/12/18 14:00 16 08/12/18 13:08 102 H 102/42 L 08/12/18 12:55 102 H 102/42 L 08/12/18 12:00 98.2 F 16 08/12/18 11:06 100 132/53 L 08/12/18 10:00 16 08/12/18 08:51 154 H 139/58 L 08/12/18 08:00 16 95 08/12/18 07:43 99 115/44 L Weight Admit Weight 168 lb 11.199 oz Weight 186 lb 11.704 oz Most Recent Monitor Data Heart Rate from ECG 96 NIBP 86/54 NIBP BP-Mean 64 Respiration from ECG 0 SpO2 98 I&O: 08/11/18 08/12/18 08/13/18 06:59 06:59 06:59 Intake Total 2200 6776.6 100 Output Total 450 3115 985 Balance 1750 3661.6 -885 Result Diagrams: 08/12/18 10:07 08/12/18 05:16 Additional Labs: Accuchecks 08/12/18 03:55 POC Glucose 152 H EKG Reviewed by me: Yes (Tele: SVT) Phys Exam - Physical Examination Intubated HEENT: moist MMs ETT Respiratory: clear to auscultation bilateral Cardiovascular: RRR Gastrointestinal: soft dressing no spontaneous limb movements Deviation from normal: Unable to assess Dx/Plan (1) GI bleed Code(s): K92.2 - GASTROINTESTINAL HEMORRHAGE, UNSPECIFIED Status: Acute Comment: secondary to duodenal ulcer. Continue IV PPI, continue to monitor hemoglobin (2) Duodenal ulcer Status: Acute Comment: s/p surgery Pt is now intubated (3) SVT (supraventricular tachycardia) Code(s): I47.1 - SUPRAVENTRICULAR TACHYCARDIA Status: Acute Comment: on cardizem drip (4) HTN (hypertension) Code(s): I10 - ESSENTIAL (PRIMARY) HYPERTENSION Status: Chronic Comment: controlled - Plan * . Review of Systems - Medications/Allergies Allergies/Adverse Reactions: Allergies Allergy/AdvReac Type Severity Reaction Status Date / Time Penicillins Allergy Rash Verified 08/11/18 04:01 Medications: Current Medications Albumin Human (Albumin 25%) 25 gm IVPB 0500,1100,1700,2300 [facility] Stop: 08/13/18 23:01 Last Admin: 08/12/18 17:00 Dose: 25 gm Albuterol/Ipratropium (Duoneb) 3 ml NEB [id number] [id number] Last Admin: 08/12/18 14:33 Dose: 3 ml Albuterol/Ipratropium (Duoneb) 3 ml NEB PRN PRN PRN Reason: Dyspnea/Wheezing/SOB Haloperidol Lactate (Haldol) 10 mg IM Q4H [facility] Last Admin: 08/12/18 16:43 Dose: 10 mg Hydrocortisone Sodium Succinate (Solu-Cortef) 100 mg IVP 0100,0900,1700 [facility] Last Admin: 08/12/18 16:58 Dose: 100 mg Piperacillin Sod/Tazobactam (Sod 3.375 gm/ Sodium Chloride) 100 mls @ 200 mls/ hr IVPB 0300,0900,1500,2100 [facility] Last Admin: 08/12/18 15:32 Dose: 100 mls Fentanyl Citrate 2,000 mcg/ (Sodium Chloride) 100 mls @ 0 mls/hr IV INF LULÚ; Protocol Stop: 09/10/18 15:36 Last Admin: 08/12/18 10:24 Dose: 100 mls Fentanyl Citrate (Fentanyl Bolus) 250 mls @ 0 mls/hr IVPB PRN PRN PRN Reason: Breakthrough pain/agitation Stop: 09/10/18 15:36 Sodium Bicarbonate 150 meq/Miscellaneous Medication 1 each/ Dextrose/Water 1, 150 mls @ 150 mls/hr IV .[id number] [facility] Last Admin: 08/12/18 11:05 Dose: 1,150 mls Potassium Chloride 40 meq/ (Sodium Chloride) 270 mls @ 135 mls/hr IVPB ASDIR PRN PRN Reason: FOR SERUM K+ 2.5 - 3.5 Potassium Chloride 40 meq/ (Device) 100 mls @ 50 mls/hr IVPB ASDIR PRN PRN Reason: FOR SERUM K+ 2.5 - 3.5 Magnesium Sulfate 1 gm/ Sodium (Chloride) 102 mls @ 102 mls/hr IV PRN PRN PRN Reason: MAG LEVEL 1.4 - 2.0 Potassium Phosphate 9 mmol/ (Sodium Chloride) 103 mls @ 25.75 mls/hr IVPB ASDIR PRN PRN Reason: Phosphate 1.0-1.8 Potassium Phosphate 12 mmol/ (Sodium Chloride) 254 mls @ 63.5 mls/hr IV ASDIR PRN PRN Reason: Serum phosphate 0.5-0.9 Potassium Phosphate 15 mmol/ (Sodium Chloride) 255 mls @ 63.75 mls/hr IV ASDIR PRN PRN Reason: Serum Phos < 0.5 Magnesium Sulfate 2 gm/ Sodium (Chloride) 104 mls @ 100 mls/hr IVPB ASDIR [facility] Last Admin: 08/11/18 19:40 Dose: 104 mls Pantoprazole Sodium 80 mg/Miscellaneous Medication 1 each/ Sodium Chloride 100 mls @ 10 mls/hr IVP INF L[facility] Last Admin: 08/12/18 11:08 Dose: 100 mls Diltiazem HCl 125 mg/ Sodium (Chloride) 125 mls @ 5 mls/hr IVPB INF L[facility]; Protocol Last Admin: 08/12/18 13:08 Dose: 125 mls Lorazepam (Ativan) 2 mg SLOW IVP Q1H PRN PRN Reason: Breakthrough agitation Stop: 09/10/18 15:36 Last Admin: 08/11/18 20:59 Dose: 2 mg Lorazepam (Ativan) 1 mg SLOW IVP Q12HR [facility] Last Admin: 08/12/18 08:15 Dose: 1 mg Magnesium Oxide (Magnesium Oxide) 400 mg PO BIDPRN PRN PRN Reason: FOR SERUM MAG 1.4 - 2.0 Magnesium Oxide (Magnesium Oxide) 800 mg PO PRN PRN PRN Reason: FOR SERUM MAG < 1.4 Metoprolol Tartrate (Lopressor) 5 mg IVP Q6H [facility] Last Admin: 08/12/18 16:45 Dose: 5 mg Miscellaneous Medication (Phos-Nak) 1 pkt PO TIDPRN PRN PRN Reason: FOR PHOS LEVEL 1.0 - 1.8 Miscellaneous Medication (Phos-Nak) 2 pkt PO TIDPRN PRN PRN Reason: FOR PHOS LEVEL 0.5 - 1.0 Morphine Sulfate (Morphine) 2 mg SLOW IVP Q1H PRN PRN Reason: BREAKTHROUGH PAIN/AGITATION Last Admin: 08/12/18 08:42 Dose: 2 mg Morphine Sulfate (Morphine) 4 mg SLOW IVP Q1H PRN PRN Reason: Moderate to Severe Pain (6-10) Last Admin: 08/12/18 14:42 Dose: 4 mg Discontinue Previous Narcotic Pain Medications And Benzodiazepines 1 each FS .ONE [facility] Stop: 09/10/18 15:36 Ccu Electrolyte (Replacement Protocol) 0 each FS PRN PRN PRN Reason: FOR ELECTROLYTE REPLACEMENT Ondansetron HCl (Zofran) 4 mg IVP Q6H PRN PRN Reason: Nausea/Vomiting Last Admin: 08/11/18 03:33 Dose: 4 mg Potassium Chloride (K-Dur) 40 meq PO ASDIR PRN PRN Reason: FOR SERUM K+ 2.5 - 3.5 Potassium Chloride (Klor-Con) 40 meq PER TUBE ASDIR PRN PRN Reason: FOR SERUM K+ 2.5-3.5 Promethazine HCl (Phenergan) 12.5 mg IM/IV Q4H PRN PRN Reason: Nausea/Vomiting Sodium Chloride (Flush - Normal Saline) 10 ml IVF Q12HR [facility] Last Admin: 08/12/18 08:29 Dose: 10 ml Sodium Chloride (Flush - Normal Saline) 10 ml IVF PRN PRN PRN Reason: Saline Flush
--- NOTE | 2018-08-12 19:19 | PRG ---
DATE OF SERVICE: 08/12/2018 Mr. Fernandes underwent surgical repair of the ulcer with Dr. Pope about 3: 00 this morning. He is still mechanically ventilated. He is hemodynamically stabilized. No clinical blood loss. No significant drop in his hemoglobin after his surgery. He will awaken. He has been started on Haldol for his paranoid schizophrenia. LABORATORY DATA: White count 13.3, hemoglobin is 9.5, and platelets are 158. PHYSICAL EXAMINATION: LUNGS: Clear. HEART: Regular rhythm. ABDOMEN: Soft. All morning, he has been in and out of supraventricular rhythm disturbance. Some of it appears to be atrial flutter and then he will for 3-4 seconds have atrial fibrillation and then he will go back into a sinus tachycardia with a rate of 110-120. He was started on a Cardizem drip. With the rapid recurrence of these rhythm disturbances, he is developing pulmonary edema. Chest radiograph this afternoon shows pulmonary edema associated with these rhythm disturbances versus noncardiogenic pulmonary edema associated with his gastrointestinal blood loss. In any event, we had increased his PEEP to 10, his FIO2 to 65%. His Cardizem was increased and I have added around the clock Lopressor since he was on a beta riaz prior to admission. Hopefully this will help control his rhythm. He should currently cannot be diuresed because of blood pressure instability. I met with the family and answered all their questions. Critical care time 40 minutes. FARHAN
[2018-08-13] MEDS: Haloperidol Lactate 5 MG/ML VIAL IM SCH ×7 (00:06→23:55)
[2018-08-13] MEDS: Hydrocortisone Sod Succ/PF 100 mg/2 ml Vial IVP SCH ×2 (00:15→08:51)
[2018-08-13] MEDS: fentaNYL Citrate/PF 2,000 MCG in Sodium Chloride 0.9% 60 ML IV SCH ×2 (00:24→14:14)
[2018-08-13] MEDS: Morphine 4 MG/ML VIAL SLOW IVP PRN ×2 (02:37→06:14)
[2018-08-13] MEDS: Piperacillin/Tazobactam 3.375 GM in Sodium Chloride 0.9% 100 ML IVPB SCH ×4 (02:38→20:29)
[2018-08-13] MEDS: Metoprolol Tartrate 5 MG/5 ML VIAL IVP SCH ×4 (04:12→20:29)
[2018-08-13] MEDS: Albumin 25% 25 GM/100 ML BOT IVPB SCH ×4 (06:12→23:55)
--- NOTE | 2018-08-13 07:28 | RAD ---
CHEST ONE VIEW: HISTORY: Bowel movements with obvious blood. Nausea and vomiting. COMPARISON: 01/12/2018 FINDINGS: Old right rib fractures are noted with decreased right lung volume, likely representing areas of scar ring. There is associated rightward deviation of the cardiomediastinal silhouette. Blunting of the right costophrenic angle is likely due to scar/atelectasis. There is no pneumothorax. There appears to be an acute lateral right seventh rib fracture. No evidence of cardiomegaly. IMPRESSION: 1. Multiple old right rib fractures. There are associated pleural and parenchymal changes, likely c hronic, with resultant diminished right lung volume. There is associated rightward deviation of the cardiomediastinal silhouette and elevation of the right hemidiaphragm. 2. Acute lateral right seventh rib fracture. CODE T POS: ANDREI
[2018-08-13] MEDS: Sodium Bicarbonate 150 MEQ, Admixture Fee 1 EACH in Dextrose 5% in Water 1,000 ML IV SCH ×3 (07:30→19:54)
[2018-08-13 07:33] LABS: Actual Bicarbonate (HCO3a) 37.8 mEq/L (22-28); Base Excess (BEa) 12.5 mEq/L (-2.0 to +3.0); CO2 Tension 54.6 mmHg (35.0-45.0); Calcium, Ionized 1.02 mmol/L (1.12-1.30); Carboxyhemoglobin (COHb) 1.7 gm% (0.0-3.0); Hemoglobin (Hb) 8.5 g/dL (14.0-18.0); O2 Tension (PaO2) 78.8 mmHg (> 80.0); Potassium - ABG Lab 3.21 mmol/L (3.70-5.30); pH, Arterial 7.46 (7.35-7.45)
[2018-08-13 07:35] LABS: Puncture Site LINE
[2018-08-13] MEDS: Pantoprazole 80 MG, Admixture Fee 1 EACH in Sodium Chloride 0.9% 100 ML IVP SCH ×2 (07:55→18:58)
[2018-08-13] MEDS: Diltiazem 125 MG in Sodium Chloride 0.9% 100 ML IVPB SCH (08:00)
[2018-08-13] MEDS: Lorazepam 2 MG/ML VIAL SLOW IVP SCH ×2 (08:50→20:30)
[2018-08-13 10:54] LABS: #Lymphocytes 0.8 thou/uL (1.20-3.40); #Monocytes 0.7 thou/uL (0.11-0.59); #Neutrophils 10.2 thou/uL (1.40-6.50); %Eosinophils 0.1 % (0.0-10.0); %Lymphocytes 7.2 % (21.0-51.0); %Monocytes 5.8 % (0.0-10.0); %Neutrophils 86.9 % (42.0-75.0); Hemoglobin 7.8 g/dL (14.0-18.0); Mean Corpuscular HGB CONC 33.3 g/dL (32.0-36.0); Mean Corpuscular Hemoglobin 30.3 pg (27.0-31.0); Mean Corpuscular Volume 91.1 fL (78.0-98.0); Mean Platelet Volume 7.3 fL (7.4-10.4); Platelet Count 105 thou/uL (130-400); RBC Distribution Width 14.2 % (11.5-14.5); Red Blood Cell (RBC) Count 2.57 mill/uL (4.70-6.10); White Blood Cell (WBC) Count 11.7 thou/uL (4.8-10.8)
[2018-08-13 11:16] LABS: BUN (Urea Nitrogen) 12 mg/dL (8.4-25.7); Calc. Creatinine Clearance 125 mL/min (70-130); Calcium 7.7 mg/dL (7.8-10.44); Estimated GFR-MDRD Greater than 90; Glucose 122 mg/dL (80-115)
--- NOTE | 2018-08-13 11:25 | PRG ---
DATE OF SERVICE: 08/13/2018 His mother and brother are at the bedside. I had a talk with them. He has been resedated on the loi tilator. PHYSICAL EXAMINATION: VITAL SIGNS: His heart rate currently is 95, blood pressure 155/49. GENERAL: He looks comfortable, sedated. He has got the OG tube in that is draining a little bit of bilious fluid. ABDOMEN: His abdomen is just slightly distended. The dressing is dry, clean. He has got good urine output. NG output was 120, Herrera was 3 liters out. His H&H is 8.9 and 26.5. IMPRESSION: Stable. PLAN: Vent management per Pulmonary.
[2018-08-13 11:28] LABS: Anion Gap 15 mmol/L (10-20); Carbon Dioxide 32 mmol/L (23-31); Chloride 102 mmol/L (98-107); Potassium 3.3 mmol/L (3.5-5.1); Sodium 146 mmol/L (136-145)
[2018-08-13] MEDS: Sodium Chloride 0.45% 1,000 ML IV SCH (12:22)
--- NOTE | 2018-08-13 12:24 | PDOC.CTH ---
<Nina Jackman - Last Filed: 08/13/18 12:26> Cardiology Progress Note - Subjective The pt seen and examined. No overnight events. On mechanical Vent with Vent sedation. - Objective Vital Signs Temp Pulse Resp BP Pulse Ox 08/13/18 10:43 88 140/43 L 08/13/18 10:42 82 24 H 98 08/13/18 10:00 24 H 08/13/18 08:00 98.8 F 24 H 100 08/13/18 07:20 106 H 185/59 H 08/13/18 07:18 105 H 24 H 100 08/13/18 06:00 24 H 08/13/18 04:00 98.7 F 24 H 08/13/18 02:31 102 H 08/13/18 02:00 24 H Admit Weight 168 lb 11.199 oz Weight 184 lb 8.43 oz 08/12/18 08/13/18 08/14/18 06:59 06:59 06:59 Intake Total 6776.6 5264 Output Total 3115 1735 250 Balance 3661.6 3529 -250 - Physical Examination Lungs: other: (coarses and diminished at bases) Heart: RRR Abdomen: soft Extremities: other: (generalized edema) - Telemetry Telemetry Rhythm: SR - Labs Result Diagrams: 08/13/18 10:46 08/13/18 10:46 Troponin/CKMB CK-MB (CK-2) 13.9 ng/mL (0-6.6) H* 08/11/18 16:29 Troponin I 0.083 ng/mL (< 0.028) H 08/12/18 12:13 - Assessment/Plan 1. SVT - Well controlled with Diltiazem IV drip and Metoprolol 5mg IV q6hrs. EP consult for possible SVT ablation. 2. GI bleed 2/2 Duodenal ulcer - s/p Ex lap pyloroplasty on 08/12/18. On Protonix IV. 3. HTN - stable 4. Hyperlipidemia - 5. DM type 2 - MAR reviewed * Echo on 08/12/18 showed EF >60%, trace TR and MR. Review of Systems - Review of Systems Constitutional: reports: see HPI EENTM: reports: see HPI Respiratory: reports: see HPI Cardiac (ROS): reports: see HPI ABD/GI: reports: see HPI : reports: see HPI <Shivani Ashford - Last Filed: 08/13/18 17:49> Cardiology Progress Note - Objective Vital Signs Temp Pulse Resp BP Pulse Ox 08/13/18 16:00 24 H 08/13/18 14:33 117 H 166/60 H 08/13/18 14:30 113 H 27 H 94 L 08/13/18 14:00 24 H 08/13/18 12:00 99.1 F 24 H 08/13/18 10:43 88 140/43 L 08/13/18 10:42 82 24 H 98 08/13/18 10:00 24 H 08/13/18 08:00 98.8 F 24 H 100 08/13/18 07:20 106 H 185/59 H 08/13/18 07:18 105 H 24 H 100 08/13/18 06:00 24 H Admit Weight 168 lb 11.199 oz Weight 184 lb 8.43 oz 08/12/18 08/13/18 08/14/18 06:59 06:59 06:59 Intake Total 6776.6 5264 1608.5 Output Total 3115 1735 725 Balance 3661.6 3529 883.5 - Labs Result Diagrams: 08/13/18 10:46 08/13/18 10:46 Troponin/CKMB CK-MB (CK-2) 13.9 ng/mL (0-6.6) H* 08/11/18 16:29 Troponin I 0.083 ng/mL (< 0.028) H 08/12/18 12:13 - Assessment/Plan Pt. seen and eval. by me. He remains on the ventilator. Agitated this afternoon. BP increased likely due to the agitation. Once he is stable he likely will benefit from EP evaluation and possible ablation of SVT. I agree with the A/P by the SPEECH AND LANGUAGE ASSISTANT.
[2018-08-13] MEDS: Potassium Chloride 40 MEQ in Sodium Chloride 0.9% 250 ML 250 ML IVPB PRN ×2 (14:14→14:33)
--- NOTE | 2018-08-13 17:04 | PRG ---
DATE OF SERVICE: 08/13/2018 SUBJECTIVE: Ruiz Fernandes remains sedated. He continues to get Haldol for his paranoid schizop hrenia. PHYSICAL EXAMINATION: VITAL SIGNS: Heart rate 113, blood pressure 166/60, respiratory rate is 20, oximetry is 94%. LUNGS: Clear. HEART: Regular rhythm. S1 and S2 are normal. ABDOMEN: Soft and nontender. EXTREMITIES: Without clubbing, cyanosis, or edema. His tachyarrhythmia appeared to be improving. IMPRESSION: 1. Hemorrhagic shock. 2. Status post oversew of duodenal ulcer that was massive. 3. Nonsteroidal use. It was fairly heavy according to family prior to admission, which may be the c ulprit with regard to his duodenal ulcer. 4. Paranoid schizophrenia. 5. Deconditioning. 6. Respiratory failure that is acute. He is not a candidate for weaning at this point in time. 7. Supraventricular rhythm disturbances which appeared to be intermittent atrial fibrillation and at rial flutter, awaiting EP evaluation. 8. Hypertension. 9. Diabetes and lipid disorder. PLAN: Continue supportive care. His bicarbonate drip has been discontinued. Continue with saline a nd serial exams. I met with the mother and answered all of her questions. He is not a candidate for weaning and extubation yet. Critical care time was 30 minutes.
--- NOTE | 2018-08-13 17:31 | PDOC.PN ---
- Subjective Encounter Start Date: 08/13/18 Encounter Start Time: 10:00 Pt seen for followup re: GI bleed. Intubated, nonverbal, unable to complete ROS. - Objective Resuscitation Status: Resuscitation Status FULL:Full Resuscitation Vital Signs & Weight: Vital Signs (12 hours) Temp Pulse Resp BP Pulse Ox 08/13/18 16:00 24 H 08/13/18 14:33 117 H 166/60 H 08/13/18 14:30 113 H 27 H 94 L 08/13/18 14:00 24 H 08/13/18 12:00 99.1 F 24 H 08/13/18 10:43 88 140/43 L 08/13/18 10:42 82 24 H 98 08/13/18 10:00 24 H 08/13/18 08:00 98.8 F 24 H 100 08/13/18 07:20 106 H 185/59 H 08/13/18 07:18 105 H 24 H 100 08/13/18 06:00 24 H Weight Admit Weight 168 lb 11.199 oz Weight 184 lb 8.43 oz Most Recent Monitor Data Heart Rate from ECG 96 NIBP 86/54 NIBP BP-Mean 64 Respiration from ECG 24 SpO2 98 I&O: 08/12/18 08/13/18 08/14/18 06:59 06:59 06:59 Intake Total 6776.6 5264 1608.5 Output Total 3115 1735 725 Balance 3661.6 3529 883.5 Result Diagrams: 08/13/18 10:46 08/13/18 10:46 Phys Exam - Physical Examination Intubated ETT Neck: no nodes Respiratory: clear to auscultation bilateral S1, S2, tachy abdominal dressing Deviation from normal: Unable to assess Dx/Plan (1) GI bleed Code(s): K92.2 - GASTROINTESTINAL HEMORRHAGE, UNSPECIFIED Status: Acute Comment: secondary to duodenal ulcer. Pt is on IV PPI. (2) Duodenal ulcer Status: Acute Comment: s/p surgery (3) SVT (supraventricular tachycardia) Code(s): I47.1 - SUPRAVENTRICULAR TACHYCARDIA Status: Acute Comment: on cardizem drip, cardiology following (4) HTN (hypertension) Code(s): I10 - ESSENTIAL (PRIMARY) HYPERTENSION Status: Chronic Comment: controlled - Plan * . Review of Systems - Medications/Allergies Allergies/Adverse Reactions: Allergies Allergy/AdvReac Type Severity Reaction Status Date / Time Penicillins Allergy Rash Verified 08/11/18 04:01 Medications: Current Medications Albumin Human (Albumin 25%) 25 gm IVPB 0500,1100,1700,2300 [facility] Stop: 08/13/18 23:01 Last Admin: 08/13/18 10:48 Dose: 25 gm Albuterol/Ipratropium (Duoneb) 3 ml NEB [id number] [facility] Last Admin: 08/13/18 14:30 Dose: 3 ml Albuterol/Ipratropium (Duoneb) 3 ml NEB PRN PRN PRN Reason: Dyspnea/Wheezing/SOB Dexamethasone (Decadron) 4 mg SLOW IVP Q12HR [facility] Haloperidol Lactate (Haldol) 10 mg IM Q4H [facility] Last Admin: 08/13/18 16:00 Dose: 10 mg Piperacillin Sod/Tazobactam (Sod 3.375 gm/ Sodium Chloride) 100 mls @ 200 mls/ hr IVPB 0300,0900,1500,2100 [facility] Last Admin: 08/13/18 14:33 Dose: 100 mls Fentanyl Citrate 2,000 mcg/ (Sodium Chloride) 100 mls @ 0 mls/hr IV INF [facility]; Protocol Stop: 09/10/18 15:36 Last Admin: 08/13/18 14:14 Dose: 100 mls Fentanyl Citrate (Fentanyl Bolus) 250 mls @ 0 mls/hr IVPB PRN PRN PRN Reason: Breakthrough pain/agitation Stop: 09/10/18 15:36 Sodium Bicarbonate 150 meq/Miscellaneous Medication 1 each/ Dextrose/Water 1, 150 mls @ 150 mls/hr IV .[id number] [facility] Last Admin: 08/13/18 07:30 Dose: Not Given Potassium Chloride 40 meq/ (Sodium Chloride) 270 mls @ 135 mls/hr IVPB ASDIR PRN PRN Reason: FOR SERUM K+ 2.5 - 3.5 Last Admin: 08/13/18 14:33 Dose: 270 mls Potassium Chloride 40 meq/ (Device) 100 mls @ 50 mls/hr IVPB ASDIR PRN PRN Reason: FOR SERUM K+ 2.5 - 3.5 Magnesium Sulfate 1 gm/ Sodium (Chloride) 102 mls @ 102 mls/hr IV PRN PRN PRN Reason: MAG LEVEL 1.4 - 2.0 Potassium Phosphate 9 mmol/ (Sodium Chloride) 103 mls @ 25.75 mls/hr IVPB ASDIR PRN PRN Reason: Phosphate 1.0-1.8 Potassium Phosphate 12 mmol/ (Sodium Chloride) 254 mls @ 63.5 mls/hr IV ASDIR PRN PRN Reason: Serum phosphate 0.5-0.9 Potassium Phosphate 15 mmol/ (Sodium Chloride) 255 mls @ 63.75 mls/hr IV ASDIR PRN PRN Reason: Serum Phos < 0.5 Magnesium Sulfate 2 gm/ Sodium (Chloride) 104 mls @ 100 mls/hr IVPB ASDIR [facility] Last Admin: 08/11/18 19:40 Dose: 104 mls Pantoprazole Sodium 80 mg/Miscellaneous Medication 1 each/ Sodium Chloride 100 mls @ 10 mls/hr IVP INF [facility] Last Admin: 08/13/18 07:55 Dose: 100 mls Diltiazem HCl 125 mg/ Sodium (Chloride) 125 mls @ 5 mls/hr IVPB INF [facility]; Protocol Last Admin: 08/13/18 08:00 Dose: 125 mls Sodium Chloride (1/2 Normal Saline) 1,000 mls @ 75 mls/hr IV .[id number] [facility] Last Admin: 08/13/18 12:22 Dose: 1,000 mls Lorazepam (Ativan) 2 mg SLOW IVP Q1H PRN PRN Reason: Breakthrough agitation Stop: 09/10/18 15:36 Last Admin: 08/11/18 20:59 Dose: 2 mg Lorazepam (Ativan) 1 mg SLOW IVP Q12HR [facility] Last Admin: 08/13/18 08:50 Dose: 1 mg Magnesium Oxide (Magnesium Oxide) 400 mg PO BIDPRN PRN PRN Reason: FOR SERUM MAG 1.4 - 2.0 Magnesium Oxide (Magnesium Oxide) 800 mg PO PRN PRN PRN Reason: FOR SERUM MAG < 1.4 Metoprolol Tartrate (Lopressor) 5 mg IVP Q6H [facility] Last Admin: 08/13/18 16:21 Dose: 5 mg Miscellaneous Medication (Phos-Nak) 1 pkt PO TIDPRN PRN PRN Reason: FOR PHOS LEVEL 1.0 - 1.8 Miscellaneous Medication (Phos-Nak) 2 pkt PO TIDPRN PRN PRN Reason: FOR PHOS LEVEL 0.5 - 1.0 Morphine Sulfate (Morphine) 2 mg SLOW IVP Q1H PRN PRN Reason: BREAKTHROUGH PAIN/AGITATION Last Admin: 08/12/18 08:42 Dose: 2 mg Morphine Sulfate (Morphine) 4 mg SLOW IVP Q1H PRN PRN Reason: Moderate to Severe Pain (6-10) Last Admin: 08/13/18 06:14 Dose: 4 mg Discontinue Previous Narcotic Pain Medications And Benzodiazepines 1 each FS .ONE [facility] Stop: 09/10/18 15:36 Ccu Electrolyte (Replacement Protocol) 0 each FS PRN PRN PRN Reason: FOR ELECTROLYTE REPLACEMENT Ondansetron HCl (Zofran) 4 mg IVP Q6H PRN PRN Reason: Nausea/Vomiting Last Admin: 08/11/18 03:33 Dose: 4 mg Potassium Chloride (K-Dur) 40 meq PO ASDIR PRN PRN Reason: FOR SERUM K+ 2.5 - 3.5 Potassium Chloride (Klor-Con) 40 meq PER TUBE ASDIR PRN PRN Reason: FOR SERUM K+ 2.5-3.5 Promethazine HCl (Phenergan) 12.5 mg IM/IV Q4H PRN PRN Reason: Nausea/Vomiting Sodium Chloride (Flush - Normal Saline) 10 ml IVF Q12HR [facility] Last Admin: 08/13/18 08:52 Dose: 10 ml Sodium Chloride (Flush - Normal Saline) 10 ml IVF PRN PRN PRN Reason: Saline Flush
[2018-08-13] MEDS: Lorazepam 2 MG/ML VIAL SLOW IVP PRN ×2 (18:12→23:55)
[2018-08-13] MEDS: Dexamethasone 4 mg/ml Vial SLOW IVP SCH (20:30)
[2018-08-14] MEDS: fentaNYL Citrate/PF 2,000 MCG in Sodium Chloride 0.9% 60 ML IV SCH ×3 (01:36→23:54)
--- NOTE | 2018-08-14 02:25 | PRG ---
DATE OF SERVICE: 08/13/2018 SUBJECTIVE: Mr. Fernandes is still intubated. He is awake. He has had no further bleeding. He is being seen by Cardiology for SVT. They are considering a cardioversion or EP consultation. OBJECTIVE: VITAL SIGNS: Heart rate 89, blood pressure 153/53, pulse 87. HEENT: . Oropharynx without lesions. No overt lesions in the mouth. NECK: Supple without adenopathy. GENERAL: He was intubated. His NG tube in place with no blood. ABDOMEN: Soft. Bowel sounds are quiescent, is nondistended. Incision is well healed. LABORATORY STUDIES: White count 11.7, hemoglobin 7.8, platelet count 105. INR is 1.5. Sodium 146, potassium 3.3, BUN and creatinine are 12 and 0.67. ASSESSMENT: 1. Acute gastrointestinal bleed from large duodenal ulcer, subsequently treated endoscopically and t hen with a Hemovac was brought to the OR on the night of the oversew of the ulcer. 2. Continued irregular heart rate with intermittent tachycardia and what appeared to be a possible a trial flutter has been seen by Cardiology. He was on a diltiazem with good rate control now. RECOMMENDATIONS: 1. Avoid anticoagulation. 2. PPI when he just gets extubating, started on p.o. Protonix. 3. We will check H. pylori antibody.
[2018-08-14] MEDS: Piperacillin/Tazobactam 3.375 GM in Sodium Chloride 0.9% 100 ML IVPB SCH ×4 (03:44→21:12)
[2018-08-14] MEDS: Sodium Chloride 0.45% 1,000 ML IV SCH (03:46)
[2018-08-14] MEDS: Haloperidol Lactate 5 MG/ML VIAL IM SCH ×5 (03:49→23:49)
[2018-08-14] MEDS: Metoprolol Tartrate 5 MG/5 ML VIAL IVP SCH ×4 (03:51→21:16)
[2018-08-14] MEDS: Sodium Bicarbonate 150 MEQ, Admixture Fee 1 EACH in Dextrose 5% in Water 1,000 ML IV SCH (03:56)
[2018-08-14 04:32] LABS: #Lymphocytes 0.7 thou/uL (1.20-3.40); #Monocytes 0.6 thou/uL (0.11-0.59); #Neutrophils 9.4 thou/uL (1.40-6.50); %Basophils 0.3 % (0.0-1.0); %Eosinophils 0.1 % (0.0-10.0); %Lymphocytes 6.3 % (21.0-51.0); %Monocytes 5.2 % (0.0-10.0); %Neutrophils 88.2 % (42.0-75.0); Mean Corpuscular HGB CONC 32.5 g/dL (32.0-36.0); Mean Corpuscular Hemoglobin 30.2 pg (27.0-31.0); Mean Corpuscular Volume 92.8 fL (78.0-98.0); Mean Platelet Volume 8.4 fL (7.4-10.4); Platelet Count 114 thou/uL (130-400); RBC Distribution Width 14.1 % (11.5-14.5); Red Blood Cell (RBC) Count 2.64 mill/uL (4.70-6.10); White Blood Cell (WBC) Count 10.6 thou/uL (4.8-10.8)
[2018-08-14 04:36] LABS: Anion Gap 11 mmol/L (10-20); BUN (Urea Nitrogen) 14 mg/dL (8.4-25.7); Calc. Creatinine Clearance 125 mL/min (70-130); Calcium 8.2 mg/dL (7.8-10.44); Carbon Dioxide 33 mmol/L (23-31); Chloride 103 mmol/L (98-107); Estimated GFR-MDRD Greater than 90; Glucose 102 mg/dL (80-115); Potassium 3.4 mmol/L (3.5-5.1); Sodium 144 mmol/L (136-145)
[2018-08-14 06:52] LABS: Actual Bicarbonate (HCO3a) 31.7 mEq/L (22-28); Base Excess (BEa) 6.5 mEq/L (-2.0 to +3.0); CO2 Tension 49.4 mmHg (35.0-45.0); Carboxyhemoglobin (COHb) 1.8 gm% (0.0-3.0); Hemoglobin (Hb) 8.5 g/dL (14.0-18.0); Potassium - ABG Lab 3.53 mmol/L (3.70-5.30); pH, Arterial 7.43 (7.35-7.45)
[2018-08-14 06:53] LABS: Puncture Site LINE
[2018-08-14] MEDS: Diltiazem 125 MG in Sodium Chloride 0.9% 100 ML IVPB SCH (07:23)
[2018-08-14] MEDS: Lorazepam 2 MG/ML VIAL SLOW IVP PRN ×2 (07:23→14:28)
[2018-08-14] MEDS: Dexamethasone 4 mg/ml Vial SLOW IVP SCH ×2 (08:16→21:16)
[2018-08-14] MEDS: Lorazepam 2 MG/ML VIAL SLOW IVP SCH ×2 (09:00→21:17)
[2018-08-14] MEDS ORDERED: Sodium Chloride 0.45% 1,000 ML IV SCH (09:51)
[2018-08-14] MEDS ORDERED: Haloperidol Lactate 5 MG/ML VIAL IM SCH (10:00)
[2018-08-14] MEDS ORDERED: Cosyntropin 250 MCG VIAL SLOW IVP SCH (10:00)
[2018-08-14] MEDS ORDERED: Furosemide 40 MG/4 ML VIAL SLOW IVP SCH (10:00)
--- NOTE | 2018-08-14 10:21 | RAD ---
CHEST 1 VIEW: HISTORY: Dyspnea. Followup. COMPARISON: 08/12/18. FINDINGS: Cardiac silhouette is magnified by projection. Pulmonary vasculature upper limits of normal, improve d compared to the previous exam. Patchy bibasilar infiltrates are also less dense. Mediastinum is m idline. Lines and tubes appear unchanged in position. Old injury of the right chest is apparent. IMPRESSION: Interval radiographic improvement in appearance of pulmonary edema. Findings are otherwise stable. POS: ANDREI
--- NOTE | 2018-08-14 10:39 | PRG ---
DATE OF SERVICE: 08/14/2018 Mr. Fernandes was stable overnight. He is lightly sedated. PHYSICAL EXAMINATION: VITAL SIGNS: Blood pressure 177/60, heart rate 90, respiratory rate is in the 20s. He is still on 10 of PEEP and intermittent ventilatory ventilation rate (24). LUNGS: Remarkable for coarse rhonchi. HEART: Regular rhythm. He has had no more supraventricular tachycardia. ABDOMEN: Soft and distended. EXTREMITIES: Without asymmetry. Moves all extremities spontaneously. LABORATORY: White count 10.6, hemoglobin 8.0, platelets 114. Sodium 144, potassium 3.4, chloride 103, bicarbonate 33, BUN 14, creatinine 0.67. Last INR 2 days ag o was 1.5. PH 7.43, CO2 49, PO2 113. I turned his ventilatory rate down. His PEEP will be turned down as well, his FiO2 will be turned down. He has a positive fluid balance of 1624 so he would probably benefit from some diuresis given that he is ahead on volume almost 8 liters in the last 3 days. We will do a Cortrosyn stimulation test on Decadron today since his cortisol level was 5. He has had no recurrence of his gastrointestinal bleeding after his ulcer oversew, but I do not think he will be weanable for several more days. I have explained this to the mother, 2 days ago. Someon e told her yesterday that he would probably be extubated today which is not feasible. I explained to the patient's sister, that the reasons behind all this and she is more understanding of all this jose luis n the mother is. The mother is used to taking care of him, so I understand her emotions, but we sonal ot make this go any faster than it will go as I have explained to them. He will continue with IM Michael dol for his schizophrenia. Critical care time was 30 minutes.
[2018-08-14] MEDS: Furosemide 40 MG/4 ML VIAL SLOW IVP SCH (10:42)
[2018-08-14] MEDS: Potassium Chloride 20 MEQ in Premix Bag 1 BAG IVPB SCH ×2 (10:58→13:20)
--- NOTE | 2018-08-14 13:49 | PRG ---
DATE OF SERVICE: 08/14/2018 The patient is intermittently awake. He is sedated on the vent. He expresses hunger. He has had a bowel movement, it was black. PHYSICAL EXAMINATION: VITAL SIGNS: Temperature 98.5, pulse 66, blood pressure 155/51. His white count 6.3, H&H 9.9 and 30.9. Electrolytes are fine. His creatinine is 1.28. ASSESSMENT: Recovery from duodenal ulcer. PLAN: Start tube feedings, vent management per Pulmonary.
[2018-08-14] MEDS ORDERED: Sodium Bicarbonate Tab 325 MG TAB PER TUBE PRN (13:50)
[2018-08-14] MEDS ORDERED: Pancrelipase DR 12000 1 CAP FS PRN (13:50)
--- NOTE | 2018-08-14 14:19 | PDOC.PN ---
- Subjective Encounter Start Date: 08/14/18 Encounter Start Time: 14:17 Pt seen for followup re: GI bleed. Intubated, unable to complete ROS. - Objective Resuscitation Status: Resuscitation Status FULL:Full Resuscitation MAR Reviewed: Yes Vital Signs & Weight: Vital Signs (12 hours) Temp Pulse Resp BP Pulse Ox 08/14/18 12:00 99.2 F 16 08/14/18 11:00 82 165/61 H 08/14/18 10:58 77 18 99 08/14/18 10:00 18 08/14/18 09:00 99 F 08/14/18 08:43 90 177/66 H 08/14/18 08:00 24 H 97 08/14/18 06:42 77 170/61 H 08/14/18 06:41 81 24 H 100 08/14/18 06:00 24 H 08/14/18 04:00 24 H Weight Admit Weight 168 lb 11.199 oz Weight 184 lb 3 oz Most Recent Monitor Data Heart Rate from ECG 88 NIBP 86/54 NIBP BP-Mean 64 Respiration from ECG 14 SpO2 98 I&O: 08/13/18 08/14/18 08/15/18 06:59 06:59 06:59 Intake Total 5264 3574.0 154 Output Total 1735 1950 2795 Balance 3529 1624.0 -2641 Result Diagrams: 08/14/18 04:09 08/14/18 04:09 EKG Reviewed by me: Yes (Tele: NSR) Phys Exam - Physical Examination Intubated HEENT: moist MMs ETT Respiratory: clear to auscultation bilateral Cardiovascular: RRR Gastrointestinal: soft Neurological: moves all 4 limbs Deviation from normal: Unable to assess Dx/Plan (1) GI bleed Code(s): K92.2 - GASTROINTESTINAL HEMORRHAGE, UNSPECIFIED Status: Acute Comment: secondary to duodenal ulcer. Pt is on IV PPI. Hemoglobin improved to 8.0 today. (2) Duodenal ulcer Status: Acute Comment: s/p surgery (3) SVT (supraventricular tachycardia) Code(s): I47.1 - SUPRAVENTRICULAR TACHYCARDIA Status: Acute Comment: in sinus rhythm now (4) HTN (hypertension) Code(s): I10 - ESSENTIAL (PRIMARY) HYPERTENSION Status: Chronic - Plan * . Review of Systems - Medications/Allergies Allergies/Adverse Reactions: Allergies Allergy/AdvReac Type Severity Reaction Status Date / Time Penicillins Allergy Rash Verified 08/11/18 04:01 Medications: Current Medications Albuterol/Ipratropium (Duoneb) 3 ml NEB [id number] [facility] Last Admin: 08/14/18 10:58 Dose: 3 ml Albuterol/Ipratropium (Duoneb) 3 ml NEB PRN PRN PRN Reason: Dyspnea/Wheezing/SOB Lipase/Protease/Amylase (Madeline Issa [id number]) 1 cap FS .PER PROTOCOL PRN PRN Reason: TUBE OCCLUSION PROTOCOL Cosyntropin (Cortrosyn) 250 mcg SLOW IVP [facility] Last Admin: 08/14/18 12:00 Dose: 250 mcg Dexamethasone (Decadron) 4 mg SLOW IVP Q12HR [facility] Last Admin: 08/14/18 08:16 Dose: 4 mg Furosemide (Lasix) 40 mg SLOW IVP DAILY [facility] Last Admin: 08/14/18 10:42 Dose: Not Given Haloperidol Lactate (Haldol) 10 mg IM Q6HR [facility] Last Admin: 08/14/18 12:05 Dose: 10 mg Piperacillin Sod/Tazobactam (Sod 3.375 gm/ Sodium Chloride) 100 mls @ 200 mls/ hr IVPB 0300,0900,1500,2100 [facility] Last Admin: 08/14/18 08:11 Dose: 100 mls Fentanyl Citrate 2,000 mcg/ (Sodium Chloride) 100 mls @ 0 mls/hr IV INF [facility]; Protocol Stop: 09/10/18 15:36 Last Admin: 08/14/18 12:58 Dose: 100 mls Fentanyl Citrate (Fentanyl Bolus) 250 mls @ 0 mls/hr IVPB PRN PRN PRN Reason: Breakthrough pain/agitation Stop: 09/10/18 15:36 Potassium Chloride 40 meq/ (Sodium Chloride) 270 mls @ 135 mls/hr IVPB ASDIR PRN PRN Reason: FOR SERUM K+ 2.5 - 3.5 Last Admin: 08/13/18 14:33 Dose: 270 mls Potassium Chloride 40 meq/ (Device) 100 mls @ 50 mls/hr IVPB ASDIR PRN PRN Reason: FOR SERUM K+ 2.5 - 3.5 Magnesium Sulfate 1 gm/ Sodium (Chloride) 102 mls @ 102 mls/hr IV PRN PRN PRN Reason: MAG LEVEL 1.4 - 2.0 Potassium Phosphate 9 mmol/ (Sodium Chloride) 103 mls @ 25.75 mls/hr IVPB ASDIR PRN PRN Reason: Phosphate 1.0-1.8 Potassium Phosphate 12 mmol/ (Sodium Chloride) 254 mls @ 63.5 mls/hr IV ASDIR PRN PRN Reason: Serum phosphate 0.5-0.9 Potassium Phosphate 15 mmol/ (Sodium Chloride) 255 mls @ 63.75 mls/hr IV ASDIR PRN PRN Reason: Serum Phos < 0.5 Magnesium Sulfate 2 gm/ Sodium (Chloride) 104 mls @ 100 mls/hr IVPB ASDIR [facility] Last Admin: 08/11/18 19:40 Dose: 104 mls Pantoprazole Sodium 80 mg/Miscellaneous Medication 1 each/ Sodium Chloride 100 mls @ 10 mls/hr IVP INF [facility] Last Admin: 08/13/18 18:58 Dose: 100 mls Diltiazem HCl 125 mg/ Sodium (Chloride) 125 mls @ 5 mls/hr IVPB INF [facility]; Protocol Last Admin: 08/14/18 07:23 Dose: 125 mls Sodium Chloride (1/2 Normal Saline) 1,000 mls @ 0 mls/hr IV .Q0M [facility] Labetalol HCl (Normodyne) 20 mg SLOW IVP Q10MIN PRN PRN Reason: Hypertension Lorazepam (Ativan) 2 mg SLOW IVP Q1H PRN PRN Reason: Breakthrough agitation Stop: 09/10/18 15:36 Last Admin: 08/14/18 07:23 Dose: 2 mg Lorazepam (Ativan) 1 mg SLOW IVP Q12HR [facility] Last Admin: 08/14/18 09:00 Dose: Not Given Magnesium Oxide (Magnesium Oxide) 400 mg PO BIDPRN PRN PRN Reason: FOR SERUM MAG 1.4 - 2.0 Magnesium Oxide (Magnesium Oxide) 800 mg PO PRN PRN PRN Reason: FOR SERUM MAG < 1.4 Metoprolol Tartrate (Lopressor) 5 mg IVP Q6H [facility] Last Admin: 08/14/18 10:00 Dose: 5 mg Miscellaneous Medication (Phos-Nak) 1 pkt PO TIDPRN PRN PRN Reason: FOR PHOS LEVEL 1.0 - 1.8 Miscellaneous Medication (Phos-Nak) 2 pkt PO TIDPRN PRN PRN Reason: FOR PHOS LEVEL 0.5 - 1.0 Morphine Sulfate (Morphine) 2 mg SLOW IVP Q1H PRN PRN Reason: BREAKTHROUGH PAIN/AGITATION Last Admin: 08/12/18 08:42 Dose: 2 mg Morphine Sulfate (Morphine) 4 mg SLOW IVP Q1H PRN PRN Reason: Moderate to Severe Pain (6-10) Last Admin: 08/13/18 06:14 Dose: 4 mg Discontinue Previous Narcotic Pain Medications And Benzodiazepines 1 each FS .ONE [facility] Stop: 09/10/18 15:36 Ccu Electrolyte (Replacement Protocol) 0 each FS PRN PRN PRN Reason: FOR ELECTROLYTE REPLACEMENT Ondansetron HCl (Zofran) 4 mg IVP Q6H PRN PRN Reason: Nausea/Vomiting Last Admin: 08/11/18 03:33 Dose: 4 mg Potassium Chloride (K-Dur) 40 meq PO ASDIR PRN PRN Reason: FOR SERUM K+ 2.5 - 3.5 Potassium Chloride (Klor-Con) 40 meq PER TUBE ASDIR PRN PRN Reason: FOR SERUM K+ 2.5-3.5 Promethazine HCl (Phenergan) 12.5 mg IM/IV Q4H PRN PRN Reason: Nausea/Vomiting Sodium Bicarbonate (Bicarbonate, Sodium) 650 mg PER TUBE .PER PROTOCOL PRN PRN Reason: ENTERAL TUBE OCCLUSION Sodium Chloride (Flush - Normal Saline) 10 ml IVF Q12HR [facility] Last Admin: 08/14/18 08:08 Dose: 10 ml Sodium Chloride (Flush - Normal Saline) 10 ml IVF PRN PRN PRN Reason: Saline Flush
[2018-08-14] MEDS: Labetalol HCl 100 MG/20 ML VIAL SLOW IVP PRN ×2 (14:35→19:32)
--- NOTE | 2018-08-14 14:45 | PDOC.CTH ---
<Nina Jackman - Last Filed: 08/14/18 14:42> Cardiology Progress Note - Subjective The pt seen and examined. No overnight events. Cont. to be on mechanical vent with vent sedation. - Objective Vital Signs Temp Pulse Resp BP Pulse Ox 08/14/18 12:00 99.2 F 16 08/14/18 11:00 82 165/61 H 08/14/18 10:58 77 18 99 08/14/18 10:00 18 08/14/18 09:00 99 F 08/14/18 08:43 90 177/66 H 08/14/18 08:00 24 H 97 08/14/18 06:42 77 170/61 H 08/14/18 06:41 81 24 H 100 08/14/18 06:00 24 H 08/14/18 04:00 24 H Admit Weight 168 lb 11.199 oz Weight 184 lb 3 oz 08/13/18 08/14/18 08/15/18 06:59 06:59 06:59 Intake Total 5264 3574.0 154 Output Total 1735 1950 2795 Balance 3529 1624.0 -2641 - Physical Examination Lungs: other: (coarses and diminished at bases) Heart: RRR Abdomen: soft Extremities: other: (generalized edema) - Telemetry Telemetry Rhythm: SR - Labs Result Diagrams: 08/14/18 04:09 08/14/18 04:09 Troponin/CKMB CK-MB (CK-2) 13.9 ng/mL (0-6.6) H* 08/11/18 16:29 Troponin I 0.083 ng/mL (< 0.028) H 08/12/18 12:13 - Assessment/Plan 1. SVT - Well controlled with Diltiazem IV drip and Metoprolol 5mg IV q6hrs. EP consult for possible SVT ablation. 2. GI bleed 2/2 Duodenal ulcer - s/p Ex lap pyloroplasty on 08/12/18. On Protonix IV. 3. HTN - start Labetalol 20mg q15 mins PRN for SBP > 180. Cont. to monitor 4. Hyperlipidemia - will resume Simvastatin when the pt is stable 5. DM type 2 - managed by PCP SAMANTHA reviewed * Echo on 08/12/18 showed EF >60%, trace TR and MR. Review of Systems - Review of Systems Constitutional: reports: see HPI EENTM: reports: see HPI Respiratory: reports: see HPI Cardiac (ROS): reports: see HPI ABD/GI: reports: see HPI : reports: see HPI Musculoskeletal: reports: see HPI <Shivani Ashford Higinio - Last Filed: 08/14/18 19:12> Cardiology Progress Note - Objective Vital Signs Temp Pulse Resp BP Pulse Ox 08/14/18 18:22 82 08/14/18 18:21 86 19 100 08/14/18 18:00 15 08/14/18 16:00 98.4 F 15 08/14/18 14:59 81 138/52 L 08/14/18 14:57 81 16 98 08/14/18 14:35 102 H 194/76 H 08/14/18 14:00 15 08/14/18 12:00 99.2 F 16 08/14/18 11:00 82 165/61 H 08/14/18 10:58 77 18 99 08/14/18 10:00 18 08/14/18 09:00 99 F 08/14/18 08:43 90 177/66 H 08/14/18 08:00 24 H 97 Admit Weight 168 lb 11.199 oz Weight 184 lb 3 oz 08/13/18 08/14/18 08/15/18 06:59 06:59 06:59 Intake Total 5264 3574.0 1464 Output Total 1735 1950 4070 Balance 3529 1624.0 -2606 - Labs Result Diagrams: 08/14/18 04:09 08/14/18 04:09 Troponin/CKMB CK-MB (CK-2) 13.9 ng/mL (0-6.6) H* 08/11/18 16:29 Troponin I 0.083 ng/mL (< 0.028) H 08/12/18 12:13 - Assessment/Plan Pt. seen and eval. still not weanable from the vent. No further SVT or other arrhythmias. I agree with the A/P by the [facility]. Chest clear. RRR, no edema. Further cardiac workup when the pt . is more stable from a respiratory and GI standpoint. Switch to po dilt. after extubated.
[2018-08-14] MEDS: Pantoprazole 80 MG, Admixture Fee 1 EACH in Sodium Chloride 0.9% 100 ML IVP SCH (16:31)
--- NOTE | 2018-08-14 20:08 | PRG ---
DATE OF SERVICE: 08/14/2018 SUBJECTIVE: Mr. Fernandes is still intubated, seems he has got some pulmonary edema. OBJECTIVE: VITAL SIGNS: Temperature is 98, pulse 89. LUNGS: Clear. HEART: Regular rate and rhythm. ABDOMEN: Soft, nontender. LABORATORY STUDIES: White count is 11.6, hemoglobin is 8, platelet count is 114. Electrolytes normal. Potassium is 3.4. ASSESSMENT: 1. Gastrointestinal bleed secondary to a large duodenal ulcer. 2. Status post oversew of duodenal ulcer and pyloroplasty. 3. Pulmonary edema, likely related to massive transfusion protocol. 4. Mild elevation of LFTs, likely related to shock liver, not checked today. RECOMMENDATIONS: 1. Check serologies for Helicobacter pylori. 2. Recheck LFTs and make sure that are improving. 3. Dr. Ramos will be following up tomorrow. [facility]
[2018-08-15] MEDS: Pantoprazole 80 MG, Admixture Fee 1 EACH in Sodium Chloride 0.9% 100 ML IVP SCH ×3 (01:55→19:25)
[2018-08-15] MEDS: Piperacillin/Tazobactam 3.375 GM in Sodium Chloride 0.9% 100 ML IVPB SCH ×4 (03:29→20:01)
[2018-08-15] MEDS: Metoprolol Tartrate 5 MG/5 ML VIAL IVP SCH ×4 (03:29→20:02)
[2018-08-15 04:26] LABS: ALT (SGPT) 197 U/L (8-55); AST (SGOT) 91 U/L (5-34); Albumin 3.9 g/dL (3.4-4.8); Alkaline Phosphatase 54 U/L (40-150); Bilirubin, Direct 0.3 mg/dL (0.1-0.3); Bilirubin, Total 0.6 mg/dL (0.2-1.2); Protein, Total 5.6 g/dL (5.8-8.1)
[2018-08-15] MEDS: Haloperidol Lactate 5 MG/ML VIAL IM SCH ×4 (05:36→23:13)
[2018-08-15] MEDS: Labetalol HCl 100 MG/20 ML VIAL SLOW IVP PRN (05:42)
[2018-08-15] MEDS: Diltiazem 125 MG in Sodium Chloride 0.9% 100 ML IVPB SCH (05:47)
[2018-08-15 07:07] LABS: Base Excess (BEa) 5.8 mEq/L (-2.0 to +3.0); CO2 Tension 55.7 mmHg (35.0-45.0); Calcium, Ionized 1.11 mmol/L (1.12-1.30); Carboxyhemoglobin (COHb) 1.2 gm% (0.0-3.0); Hemoglobin (Hb) 9.8 g/dL (14.0-18.0); Potassium - ABG Lab 4.13 mmol/L (3.70-5.30); pH, Arterial 7.38 (7.35-7.45)
[2018-08-15 07:08] LABS: ALV-art Gradient 281.175 (0-20); Puncture Site ALINE
--- NOTE | 2018-08-15 07:44 | PDOC.CTH ---
Cardiology Progress Note - Subjective Intubated seated. Rhythm so far stable on CCB - Objective Vital Signs Temp Pulse Resp BP Pulse Ox 08/15/18 06:54 105 H 190/79 H 08/15/18 06:00 17 08/15/18 05:42 82 181/62 H 08/15/18 04:00 98.9 F 17 08/15/18 02:20 92 13 99 08/15/18 02:00 20 08/15/18 00:00 98.9 F 15 08/14/18 22:13 70 08/14/18 22:12 69 15 99 08/14/18 22:00 15 08/14/18 20:00 99.0 F 15 98 Admit Weight 168 lb 11.199 oz Weight 186 lb 1.122 oz 08/14/18 08/15/18 08/16/18 06:59 06:59 06:59 Intake Total 3574.0 2736.4 Output Total 1950 5460 Balance 1624.0 -2723.6 - Physical Examination Neck: no JVD present Lungs: CTA, unlabored respirations Heart: PMI normal, RRR Abdomen: NT/ND, soft Extremities: + femoral B - Labs Result Diagrams: 08/14/18 04:09 08/14/18 04:09 Troponin/CKMB CK-MB (CK-2) 13.9 ng/mL (0-6.6) H* 08/11/18 16:29 Troponin I 0.083 ng/mL (< 0.028) H 08/12/18 12:13 - Assessment/Plan SVT GI bleed Respiratory failure CV status stable No changes continue IV CCB
[2018-08-15] MEDS: Furosemide 40 MG/4 ML VIAL SLOW IVP SCH (08:31)
[2018-08-15] MEDS: Dexamethasone 4 mg/ml Vial SLOW IVP SCH ×2 (08:31→20:00)
--- NOTE | 2018-08-15 08:49 | RAD ---
PORTABLE AP CHEST XRAY: DATE: 08/15/18. HISTORY: On ventilator. Followup evaluation. COMPARISON: 08/14/18. FINDINGS: Lung bases are excluded from view on this exam. Endotracheal tube and nasogastric tube are again not ed in place. There are increased interstitial opacities within the lungs bilaterally, some of which appear to represent chronic lung changes and scarring in the right hemithorax, but there are also inc reased interstitial opacities, greater at each lung base similar to the prior exam and located in the perihilar region which may be related to interstitial edema. There is gas density overlying the med iastinum which is difficult to further localize. This may be secondary to patient rotation. Followu p evaluation with better patient positioning is recommended. Multiple right-sided rib fractures are again seen as well as right clavicle fracture. IMPRESSION: 1. Interstitial edema overall similar to prior exam, although the lung bases are excluded on this st udy. 2. Suggestion of superimposed chronic lung changes right mid lung zone and right lung base. 3. Gas density overlying the mediastinum which is of uncertain etiology, but the patient is rotated which may account for this finding. However, followup chest x-ray is recommended. 4. Right-sided rib fractures and right clavicle fracture. 5. Endotracheal tube and nasogastric tube stable in position. POS: [facility]
[2018-08-15] MEDS: Lorazepam 2 MG/ML VIAL SLOW IVP SCH ×2 (09:11→20:00)
[2018-08-15 10:22] LABS: Anion Gap 12 mmol/L (10-20); BUN (Urea Nitrogen) 20 mg/dL (8.4-25.7); Calc. Creatinine Clearance 124 mL/min (70-130); Calcium 8.4 mg/dL (7.8-10.44); Carbon Dioxide 32 mmol/L (23-31); Chloride 103 mmol/L (98-107); Estimated GFR-MDRD Greater than 90; Glucose 133 mg/dL (80-115); Sodium 143 mmol/L (136-145)
[2018-08-15] MEDS: fentaNYL Citrate/PF 2,000 MCG in Sodium Chloride 0.9% 60 ML IV SCH ×2 (10:59→22:11)
--- NOTE | 2018-08-15 11:13 | PRG ---
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 He is status post lap for a large bleeding duodenal ulcer. He is also on Cardizem drip. PHYSICAL EXAMINATION: VITAL SIGNS: His temperature is 98, respirations 17, sats 99% , blood pressure 158/57, pulse is 78. His I's and O's are 2736 in and 540 out. NEUROLOGICAL: He is sedated. CHEST: Rhonchi. CARDIAC: Sinus tachycardia. ABDOMEN: Soft. Distended. EXTREMITIES: No edema. LABORATORY DATA: PO2 is 77, pCO2 . X-RAY FINDINGS: Chest x-ray shows bilateral infiltrates. IMPRESSION: 1. Status post laparoscopic perforated bleeding ulcer. 2. Supraventricular tachycardia. 3. Respiratory failure. 4. x-ray. 5. Encephalopathy. PLAN: He was started on Decadron, Zosyn, and Haldol. Continue supportive care. Apparently, he need s several days of downtime before we can start weaning and extubation. Nutrition as per Surgery. [id number] critical care time.
--- NOTE | 2018-08-15 11:32 | EKG ---
Test Reason : Blood Pressure : / mmHG Vent. Rate : 101 BPM Atrial Rate : 101 BPM P-R Int : 084 ms QRS Dur : 072 ms QT Int : 350 ms P-R-T Axes : 071 082 051 degrees QTc Int : 453 ms Sinus tachycardia with short UT Otherwise normal ECG Confirmed by THAIS GILES, SUDHIR ([id number]), photo editor JUAN GALLAGHER ([id number]) on 08/15/2018 11:32:13 AM Referred By: Confirmed By:SUDHIR PLASCENCIA MD
--- NOTE | 2018-08-15 15:33 | PDOC.GSPN ---
Surgery Progress Note: Subj - Subjective Narrative: Patient is intubated. Tolerating tube feeds with residuals under 200 mL's. No blood or coffee ground residual. Wound is healing well. Hemoglobin is stable Assessment/plan: Status post oversew bleeding duodenal ulcer with pyloroplasty. Doing well overall from a surgical standpoint. Continue current management. Surgery Progress Note: Obj - Vital signs Vital signs: Vital Signs - Most Recent Temp Pulse Resp BP Pulse Ox 99 F 96 25 H 154/57 H 95 08/15/18 12:00 08/15/18 14:09 08/15/18 14:09 08/15/18 12:13 08/15/18 14:09 Surgery Progress Note: Results - Labs Result Diagrams: 08/14/18 04:09 08/15/18 03:50 Lab results: Laboratory Results - last 24 hr 08/15/18 08/15/18 08/15/18 03:50 03:50 07:00 Specimen Type ARTERIAL Puncture Site JONO Bicarbonate Actual 32.0 H ABG pH 7.38 ABG pCO2 55.7 H ABG pO2 77.0 ABG O2 Sat Calc/Parviz 94.5 ABG O2 Content 12.9 L ABG Base Excess 5.8 H ABG Hematocrit 29.0 L ABG Hemoglobin 9.8 L ABG Oxyhemoglobin 93.1 L ABG Carboxyhemoglobin 1.2 ABG Methemoglobin 0.30 ABG Deoxyhemoglobin 5.4 H A-a O2 Gradient 281.175 H Ionized Calcium 1.11 L Mode of Support SIMV % Minute Volume 8.3 Mechanical Rate 15 Inspired O2 60 Tidal Volume 500 Pressure Support 10 PEEP or CPAP 8.0 Sodium 143 140 Potassium 4.0 4.13 Chloride 103 102 Carbon Dioxide 32 H Anion Gap 12 BUN 20 Creatinine 0.68 Estimated GFR (MDRD) Greater than 90 Glucose 133 H Calcium 8.4 Total Bilirubin 0.6 Direct Bilirubin 0.3 AST 91 H ALT 197 H Alkaline Phosphatase 54 Serum Total Protein 5.6 L Albumin 3.9
--- NOTE | 2018-08-15 16:38 | PDOC.PN ---
- Subjective Encounter Start Date: 08/15/18 Encounter Start Time: 09:40 Pt seen for followup re: GI bleed. Intubated, nonverbal, ROS not completed. - Objective Resuscitation Status: Resuscitation Status FULL:Full Resuscitation MAR Reviewed: Yes Vital Signs & Weight: Vital Signs (12 hours) Temp Pulse Resp BP Pulse Ox 08/15/18 16:00 99.8 F H 15 96 08/15/18 15:39 76 146/50 H 08/15/18 14:09 96 25 H 95 08/15/18 14:00 15 08/15/18 12:13 84 154/57 H 08/15/18 12:00 99 F 17 97 08/15/18 10:42 77 150/55 H 08/15/18 10:00 15 08/15/18 08:00 98.6 F 17 99 08/15/18 07:00 98.6 F 08/15/18 06:54 105 H 190/79 H 08/15/18 06:00 17 08/15/18 05:42 82 181/62 H Weight Admit Weight 168 lb 11.199 oz Weight 186 lb 1.122 oz Most Recent Monitor Data Heart Rate from ECG 78 NIBP 86/54 NIBP BP-Mean 64 Respiration from ECG 15 SpO2 96 I&O: 08/14/18 08/15/18 08/16/18 06:59 06:59 06:59 Intake Total 3574.0 2736.4 263.9 Output Total 1950 5460 3550 Balance 1624.0 -2723.6 -3286.1 Result Diagrams: 08/14/18 04:09 08/15/18 03:50 EKG Reviewed by me: Yes (Tele: NSR) Phys Exam - Physical Examination Intubated HEENT: moist MMs endotracheal tube Respiratory: clear to auscultation bilateral Cardiovascular: RRR, no rub Gastrointestinal: soft Neurological: moves all 4 limbs Deviation from normal: Unable to assess Dx/Plan (1) GI bleed Code(s): K92.2 - GASTROINTESTINAL HEMORRHAGE, UNSPECIFIED Status: Acute Comment: secondary to duodenal ulcer, s/p surgery. Continue IV PPI. (2) Duodenal ulcer Status: Acute Comment: s/p surgery (3) SVT (supraventricular tachycardia) Code(s): I47.1 - SUPRAVENTRICULAR TACHYCARDIA Status: Acute Comment: in sinus rhythm (4) HTN (hypertension) Code(s): I10 - ESSENTIAL (PRIMARY) HYPERTENSION Status: Chronic - Plan * . Review of Systems - Medications/Allergies Allergies/Adverse Reactions: Allergies Allergy/AdvReac Type Severity Reaction Status Date / Time Penicillins Allergy Rash Verified 08/11/18 04:01 Medications: Current Medications Albuterol/Ipratropium (Duoneb) 3 ml NEB [id number] [facility] Last Admin: 08/15/18 14:09 Dose: 3 ml Albuterol/Ipratropium (Duoneb) 3 ml NEB PRN PRN PRN Reason: Dyspnea/Wheezing/SOB Lipase/Protease/Amylase (Madeline Issa [id number]) 1 cap FS .PER PROTOCOL PRN PRN Reason: TUBE OCCLUSION PROTOCOL Cosyntropin (Cortrosyn) 250 mcg SLOW IVP [facility] Last Admin: 08/14/18 12:00 Dose: 250 mcg Dexamethasone (Decadron) 4 mg SLOW IVP Q12HR [facility] Last Admin: 08/15/18 08:31 Dose: 4 mg Furosemide (Lasix) 40 mg SLOW IVP DAILY [facility] Last Admin: 08/15/18 08:31 Dose: 40 mg Haloperidol Lactate (Haldol) 10 mg IM Q6HR [facility] Last Admin: 08/15/18 11:41 Dose: 10 mg Piperacillin Sod/Tazobactam (Sod 3.375 gm/ Sodium Chloride) 100 mls @ 200 mls/ hr IVPB 0300,0900,1500,2100 [facility] Last Admin: 08/15/18 14:39 Dose: 100 mls Fentanyl Citrate 2,000 mcg/ (Sodium Chloride) 100 mls @ 0 mls/hr IV INF [facility]; Protocol Stop: 09/10/18 15:36 Last Admin: 08/15/18 10:59 Dose: 100 mls Fentanyl Citrate (Fentanyl Bolus) 250 mls @ 0 mls/hr IVPB PRN PRN PRN Reason: Breakthrough pain/agitation Stop: 09/10/18 15:36 Potassium Chloride 40 meq/ (Sodium Chloride) 270 mls @ 135 mls/hr IVPB ASDIR PRN PRN Reason: FOR SERUM K+ 2.5 - 3.5 Last Admin: 08/13/18 14:33 Dose: 270 mls Potassium Chloride 40 meq/ (Device) 100 mls @ 50 mls/hr IVPB ASDIR PRN PRN Reason: FOR SERUM K+ 2.5 - 3.5 Magnesium Sulfate 1 gm/ Sodium (Chloride) 102 mls @ 102 mls/hr IV PRN PRN PRN Reason: MAG LEVEL 1.4 - 2.0 Potassium Phosphate 9 mmol/ (Sodium Chloride) 103 mls @ 25.75 mls/hr IVPB ASDIR PRN PRN Reason: Phosphate 1.0-1.8 Potassium Phosphate 12 mmol/ (Sodium Chloride) 254 mls @ 63.5 mls/hr IV ASDIR PRN PRN Reason: Serum phosphate 0.5-0.9 Potassium Phosphate 15 mmol/ (Sodium Chloride) 255 mls @ 63.75 mls/hr IV ASDIR PRN PRN Reason: Serum Phos < 0.5 Magnesium Sulfate 2 gm/ Sodium (Chloride) 104 mls @ 100 mls/hr IVPB ASDIR [facility] Last Admin: 08/11/18 19:40 Dose: 104 mls Pantoprazole Sodium 80 mg/Miscellaneous Medication 1 each/ Sodium Chloride 100 mls @ 10 mls/hr IVP INF [facility] Last Admin: 08/15/18 10:35 Dose: 100 mls Diltiazem HCl 125 mg/ Sodium (Chloride) 125 mls @ 5 mls/hr IVPB INF [facility]; Protocol Last Admin: 08/15/18 05:47 Dose: 125 mls Sodium Chloride (1/2 Normal Saline) 1,000 mls @ 0 mls/hr IV .Q0M [facility] Labetalol HCl (Normodyne) 20 mg SLOW IVP Q10MIN PRN PRN Reason: Hypertension Last Admin: 08/15/18 05:42 Dose: 20 mg Lorazepam (Ativan) 2 mg SLOW IVP Q1H PRN PRN Reason: Breakthrough agitation Stop: 09/10/18 15:36 Last Admin: 08/14/18 14:28 Dose: 2 mg Lorazepam (Ativan) 1 mg SLOW IVP Q12HR [facility] Last Admin: 08/15/18 09:11 Dose: 1 mg Magnesium Oxide (Magnesium Oxide) 400 mg PO BIDPRN PRN PRN Reason: FOR SERUM MAG 1.4 - 2.0 Magnesium Oxide (Magnesium Oxide) 800 mg PO PRN PRN PRN Reason: FOR SERUM MAG < 1.4 Metoprolol Tartrate (Lopressor) 5 mg IVP Q6H [facility] Last Admin: 08/15/18 15:49 Dose: 5 mg Miscellaneous Medication (Phos-Nak) 1 pkt PO TIDPRN PRN PRN Reason: FOR PHOS LEVEL 1.0 - 1.8 Miscellaneous Medication (Phos-Nak) 2 pkt PO TIDPRN PRN PRN Reason: FOR PHOS LEVEL 0.5 - 1.0 Morphine Sulfate (Morphine) 2 mg SLOW IVP Q1H PRN PRN Reason: BREAKTHROUGH PAIN/AGITATION Last Admin: 08/12/18 08:42 Dose: 2 mg Morphine Sulfate (Morphine) 4 mg SLOW IVP Q1H PRN PRN Reason: Moderate to Severe Pain (6-10) Last Admin: 08/13/18 06:14 Dose: 4 mg Discontinue Previous Narcotic Pain Medications And Benzodiazepines 1 each FS .ONE [facility] Stop: 09/10/18 15:36 Ccu Electrolyte (Replacement Protocol) 0 each FS PRN PRN PRN Reason: FOR ELECTROLYTE REPLACEMENT Ondansetron HCl (Zofran) 4 mg IVP Q6H PRN PRN Reason: Nausea/Vomiting Last Admin: 08/11/18 03:33 Dose: 4 mg Potassium Chloride (K-Dur) 40 meq PO ASDIR PRN PRN Reason: FOR SERUM K+ 2.5 - 3.5 Potassium Chloride (Klor-Con) 40 meq PER TUBE ASDIR PRN PRN Reason: FOR SERUM K+ 2.5-3.5 Promethazine HCl (Phenergan) 12.5 mg IM/IV Q4H PRN PRN Reason: Nausea/Vomiting Sodium Bicarbonate (Bicarbonate, Sodium) 650 mg PER TUBE .PER PROTOCOL PRN PRN Reason: ENTERAL TUBE OCCLUSION Sodium Chloride (Flush - Normal Saline) 10 ml IVF Q12HR [facility] Last Admin: 08/15/18 08:48 Dose: 10 ml Sodium Chloride (Flush - Normal Saline) 10 ml IVF PRN PRN PRN Reason: Saline Flush
[2018-08-16] MEDS: Metoprolol Tartrate 5 MG/5 ML VIAL IVP SCH ×4 (03:22→22:13)
[2018-08-16] MEDS: Diltiazem 125 MG in Sodium Chloride 0.9% 100 ML IVPB SCH (03:22)
[2018-08-16] MEDS: Piperacillin/Tazobactam 3.375 GM in Sodium Chloride 0.9% 100 ML IVPB SCH ×4 (03:22→21:15)
[2018-08-16] MEDS: Pantoprazole 80 MG, Admixture Fee 1 EACH in Sodium Chloride 0.9% 100 ML IVP SCH ×2 (04:50→16:32)
[2018-08-16] MEDS: Lorazepam 2 MG/ML VIAL SLOW IVP PRN (04:53)
[2018-08-16] MEDS: Haloperidol Lactate 5 MG/ML VIAL IM SCH ×4 (05:09→23:56)
[2018-08-16 05:51] LABS: #Lymphocytes 0.5 thou/uL (1.20-3.40); #Monocytes 0.9 thou/uL (0.11-0.59); #Neutrophils 9.1 thou/uL (1.40-6.50); %Basophils 0.3 % (0.0-1.0); %Eosinophils 0.1 % (0.0-10.0); %Lymphocytes 5.2 % (21.0-51.0); %Monocytes 8.5 % (0.0-10.0); %Neutrophils 85.9 % (42.0-75.0); Hemoglobin 8.5 g/dL (14.0-18.0); Mean Corpuscular HGB CONC 31.5 g/dL (32.0-36.0); Mean Corpuscular Hemoglobin 29.8 pg (27.0-31.0); Mean Corpuscular Volume 94.8 fL (78.0-98.0); Mean Platelet Volume 7.9 fL (7.4-10.4); Platelet Count 140 thou/uL (130-400); RBC Distribution Width 14.5 % (11.5-14.5); Red Blood Cell (RBC) Count 2.84 mill/uL (4.70-6.10); White Blood Cell (WBC) Count 10.6 thou/uL (4.8-10.8)
[2018-08-16 05:53] LABS: Anion Gap 8 mmol/L (10-20); BUN (Urea Nitrogen) 22 mg/dL (8.4-25.7); Calc. Creatinine Clearance 123 mL/min (70-130); Calcium 8.3 mg/dL (7.8-10.44); Carbon Dioxide 36 mmol/L (23-31); Chloride 103 mmol/L (98-107); Estimated GFR-MDRD Greater than 90; Glucose 144 mg/dL (80-115); Sodium 143 mmol/L (136-145)
[2018-08-16 07:18] LABS: Actual Bicarbonate (HCO3a) 34.7 mEq/L (22-28); Base Excess (BEa) 8.8 mEq/L (-2.0 to +3.0); CO2 Tension 56.7 mmHg (35.0-45.0); Calcium, Ionized 1.09 mmol/L (1.12-1.30); Carboxyhemoglobin (COHb) 1.4 gm% (0.0-3.0); Hemoglobin (Hb) 8.8 g/dL (14.0-18.0); O2 Tension (PaO2) 96.9 mmHg (> 80.0); Potassium - ABG Lab 3.76 mmol/L (3.70-5.30); pH, Arterial 7.41 (7.35-7.45)
[2018-08-16 07:20] LABS: ALV-art Gradient 188.725 (0-20); Puncture Site ALINE
--- NOTE | 2018-08-16 07:37 | PDOC.CTH ---
Cardiology Progress Note - Subjective No CV changes overnight - Objective Vital Signs Temp Pulse Resp BP Pulse Ox 08/16/18 07:14 100 08/16/18 07:09 73 147/53 H 08/16/18 07:00 98.1 F 08/16/18 06:00 15 08/16/18 04:00 15 08/16/18 03:00 98.9 F 08/16/18 02:18 102 H 08/16/18 02:00 15 08/16/18 00:00 15 08/15/18 23:00 98.3 F 08/15/18 22:21 77 08/15/18 22:00 15 08/15/18 20:00 15 Admit Weight 168 lb 11.199 oz Weight 184 lb 15.485 oz 08/15/18 08/16/18 08/17/18 06:59 06:59 06:59 Intake Total 2736.4 2606.6 Output Total 5460 5315 65 Balance -2723.6 -2708.4 -65 - Physical Examination General/Neuro: NAD Neck: carotid US brisk, no JVD present Lungs: CTA, unlabored respirations Heart: PMI normal, RRR Abdomen: NT/ND, soft Extremities: + femoral B - Labs Result Diagrams: 08/16/18 05:25 08/16/18 05:25 Troponin/CKMB CK-MB (CK-2) 13.9 ng/mL (0-6.6) H* 08/11/18 16:29 Troponin I 0.083 ng/mL (< 0.028) H 08/12/18 12:13 - Assessment/Plan SVT GI bleed Respiratory failure No changes noted Still intubated and not taking po Continue with IV CCB
[2018-08-16] MEDS: Dexamethasone 4 mg/ml Vial SLOW IVP SCH ×2 (08:31→21:15)
[2018-08-16] MEDS: Lorazepam 2 MG/ML VIAL SLOW IVP SCH ×2 (08:31→21:14)
[2018-08-16] MEDS: Furosemide 40 MG/4 ML VIAL SLOW IVP SCH (08:31)
[2018-08-16] MEDS: fentaNYL Citrate/PF 2,000 MCG in Sodium Chloride 0.9% 60 ML IV SCH ×2 (09:00→20:16)
[2018-08-16] MEDS: acetaZOLAMIDE Sodium 500 MG in Sodium Chloride 0.9% 50 ML IVPB SCH (09:34)
--- NOTE | 2018-08-16 09:35 | RAD ---
SINGLE VIEW OF THE CHEST: COMPARISON: 08/16/18. HISTORY: Ventilated patient with respiratory failure. FINDINGS: A single view of the chest shows an enlarged but stable cardiomediastinal silhouette. The endotrache al tube and NG tube are unchanged in position. Veil-like opacities are seen in the inferior aspect o f both thoraces which likely represent layering pleural effusions. No change has occurred compared t o the prior exam. IMPRESSION: Stable exam. POS: ANDREI
--- NOTE | 2018-08-16 12:43 | PRG ---
DATE OF SERVICE: 08/16/2018 SUBJECTIVE: He remains intubated on the vent, sedated with Haldol and fentanyl. OBJECTIVE: VITAL SIGNS: His blood pressure is 153/58 on the A-line. Pulse is 79, sats are 99%, respirations 15 -16. His I's and O's are 2736 in, 5460 out. CHEST: Revealed decreased breath sounds, bilateral rhonchi. CARDIAC: Sinus tachycardia. ABDOMEN: Soft, without any masses. LABORATORY DATA AND IMAGING: His white count is 10,000, H&H is 8 and 25, platelet count is 140, PO2 is 96, pCO2 of 56, with a rate of 15, he is not overriding the vent much and 50% and PEEP of 8. His bicarbonate is 36, markedly elevated, glucose 144. X-ray is difficult to assess, but he has go t chronic changes probably some bilateral pleural effusion. I still do not have his cortisol stimula tion test back. He still is getting Decadron. IMPRESSION: 1. Multiorgan failure. 2. Massive gastrointestinal bleed, status post lap. 3. Schizophrenia. 4. Supraventricular tachycardia. 5. Hypertension. 6. Chronic obstructive pulmonary disease. 7. Previous right thoracotomy as per mom. PLAN: Low dose Diamox will be initiated for a few days. Hopefully, we can start cutting back his se dation in the next day or two. We will start weaning him. He can probably be switched over from Decadron to hydrocortisone, the results of his stimulatio n tests are not back. One-half hour critical care time.
--- NOTE | 2018-08-16 17:07 | EKG ---
Test Reason : STAT Blood Pressure : / mmHG Vent. Rate : 123 BPM Atrial Rate : 123 BPM P-R Int : 154 ms QRS Dur : 086 ms QT Int : 284 ms P-R-T Axes : 065 075 216 degrees QTc Int : 406 ms Sinus tachycardia Abnormal ECG When compared with ECG of 11-AUG-2018 01:22, (Unconfirmed) CO interval has increased T wave inversion now evident in Inferior leads T wave inversion now evident in Lateral leads Confirmed by REYNA ROTH (2) on 08/16/2018 5:06:56 PM Referred By: WAYLON Confirmed By:REYNA ROTH
--- NOTE | 2018-08-16 17:13 | EKG ---
Test Reason : Blood Pressure : / mmHG Vent. Rate : 152 BPM Atrial Rate : 152 BPM P-R Int : 098 ms QRS Dur : 084 ms QT Int : 266 ms P-R-T Axes : 072 076 236 degrees QTc Int : 422 ms Sinus tachycardia with short HI Abnormal ECG When compared with ECG of 12-AUG-2018 00:33, (Unconfirmed) No significant change was found Confirmed by REYNA ROTH (2) on 08/16/2018 5:13:15 PM Referred By: JOSE MANUEL Confirmed By:REYNA ROTH
--- NOTE | 2018-08-16 17:52 | PDOC.PN ---
- Subjective Encounter Start Date: 08/16/18 Encounter Start Time: 09:00 Pt seen for followup re: GI bleed. Intubated, nonverbal. Unable to complete ROS. - Objective Resuscitation Status: Resuscitation Status FULL:Full Resuscitation MAR Reviewed: Yes Vital Signs & Weight: Vital Signs (12 hours) Temp Pulse Resp BP Pulse Ox 08/16/18 16:00 98.3 F 15 08/16/18 15:00 81 08/16/18 14:00 15 08/16/18 13:04 81 142/51 H 08/16/18 12:00 98.1 F 15 08/16/18 10:53 74 138/54 L 08/16/18 10:00 15 08/16/18 08:00 15 08/16/18 07:14 100 08/16/18 07:09 73 147/53 H 08/16/18 07:00 98.1 F 08/16/18 06:00 15 Weight Admit Weight 168 lb 11.199 oz Weight 184 lb 15.485 oz Most Recent Monitor Data Heart Rate from ECG 76 NIBP 158/65 NIBP BP-Mean 96 Respiration from ECG 14 SpO2 98 I&O: 08/15/18 08/16/18 08/17/18 06:59 06:59 06:59 Intake Total 2736.4 2606.6 1838 Output Total 5460 5315 4120 Balance -2723.6 -2708.4 -2282 Result Diagrams: 08/16/18 05:25 08/16/18 05:25 EKG Reviewed by me: Yes (Tele: NSR) Phys Exam - Physical Examination Intubated HEENT: moist MMs ETT, NGT Respiratory: clear to auscultation bilateral Cardiovascular: RRR Gastrointestinal: soft Deviation from normal: Unable to assess Dx/Plan (1) GI bleed Code(s): K92.2 - GASTROINTESTINAL HEMORRHAGE, UNSPECIFIED Status: Acute Comment: on IV PPI. Pt had surgery. (2) Duodenal ulcer Status: Acute Comment: s/p surgery (3) HTN (hypertension) Code(s): I10 - ESSENTIAL (PRIMARY) HYPERTENSION Status: Chronic (4) SVT (supraventricular tachycardia) Code(s): I47.1 - SUPRAVENTRICULAR TACHYCARDIA Status: Resolved Comment: still in sinus rhythm - Plan * . Review of Systems - Medications/Allergies Allergies/Adverse Reactions: Allergies Allergy/AdvReac Type Severity Reaction Status Date / Time Penicillins Allergy Rash Verified 08/11/18 04:01 Medications: Current Medications Albuterol/Ipratropium (Duoneb) 3 ml NEB [id number] [facility] Last Admin: 08/16/18 14:11 Dose: 3 ml Albuterol/Ipratropium (Duoneb) 3 ml NEB PRN PRN PRN Reason: Dyspnea/Wheezing/SOB Lipase/Protease/Amylase (Madeline Issa [id number]) 1 cap FS .PER PROTOCOL PRN PRN Reason: TUBE OCCLUSION PROTOCOL Cosyntropin (Cortrosyn) 250 mcg SLOW IVP [facility] Last Admin: 08/14/18 12:00 Dose: 250 mcg Dexamethasone (Decadron) 4 mg SLOW IVP Q12HR [facility] Last Admin: 08/16/18 08:31 Dose: 4 mg Haloperidol Lactate (Haldol) 10 mg IM Q6HR [facility] Last Admin: 08/16/18 17:37 Dose: 10 mg Piperacillin Sod/Tazobactam (Sod 3.375 gm/ Sodium Chloride) 100 mls @ 200 mls/ hr IVPB 0300,0900,1500,2100 [facility] Last Admin: 08/16/18 14:35 Dose: 100 mls Fentanyl Citrate 2,000 mcg/ (Sodium Chloride) 100 mls @ 0 mls/hr IV INF [facility]; Protocol Stop: 09/10/18 15:36 Last Admin: 08/16/18 09:00 Dose: 100 mls Fentanyl Citrate (Fentanyl Bolus) 250 mls @ 0 mls/hr IVPB PRN PRN PRN Reason: Breakthrough pain/agitation Stop: 09/10/18 15:36 Potassium Chloride 40 meq/ (Sodium Chloride) 270 mls @ 135 mls/hr IVPB ASDIR PRN PRN Reason: FOR SERUM K+ 2.5 - 3.5 Last Admin: 08/13/18 14:33 Dose: 270 mls Potassium Chloride 40 meq/ (Device) 100 mls @ 50 mls/hr IVPB ASDIR PRN PRN Reason: FOR SERUM K+ 2.5 - 3.5 Magnesium Sulfate 1 gm/ Sodium (Chloride) 102 mls @ 102 mls/hr IV PRN PRN PRN Reason: MAG LEVEL 1.4 - 2.0 Potassium Phosphate 9 mmol/ (Sodium Chloride) 103 mls @ 25.75 mls/hr IVPB ASDIR PRN PRN Reason: Phosphate 1.0-1.8 Potassium Phosphate 12 mmol/ (Sodium Chloride) 254 mls @ 63.5 mls/hr IV ASDIR PRN PRN Reason: Serum phosphate 0.5-0.9 Potassium Phosphate 15 mmol/ (Sodium Chloride) 255 mls @ 63.75 mls/hr IV ASDIR PRN PRN Reason: Serum Phos < 0.5 Magnesium Sulfate 2 gm/ Sodium (Chloride) 104 mls @ 100 mls/hr IVPB ASDIR [facility] Last Admin: 08/11/18 19:40 Dose: 104 mls Pantoprazole Sodium 80 mg/Miscellaneous Medication 1 each/ Sodium Chloride 100 mls @ 10 mls/hr IVP INF [facility] Last Admin: 08/16/18 16:32 Dose: 100 mls Diltiazem HCl 125 mg/ Sodium (Chloride) 125 mls @ 5 mls/hr IVPB INF [facility]; Protocol Last Admin: 08/16/18 03:22 Dose: 125 mls Sodium Chloride (1/2 Normal Saline) 1,000 mls @ 0 mls/hr IV .Q0M [facility] Acetazolamide Sodium 500 mg/ (Sodium Chloride) 50 mls @ 100 mls/hr IVPB DAILY [facility]; Protocol Stop: 08/19/18 09:01 Last Admin: 08/16/18 09:34 Dose: 50 mls Labetalol HCl (Normodyne) 20 mg SLOW IVP Q10MIN PRN PRN Reason: Hypertension Last Admin: 08/15/18 05:42 Dose: 20 mg Lorazepam (Ativan) 2 mg SLOW IVP Q1H PRN PRN Reason: Breakthrough agitation Stop: 09/10/18 15:36 Last Admin: 08/16/18 04:53 Dose: 2 mg Lorazepam (Ativan) 1 mg SLOW IVP Q12HR [facility] Last Admin: 08/16/18 08:31 Dose: 1 mg Magnesium Oxide (Magnesium Oxide) 400 mg PO BIDPRN PRN PRN Reason: FOR SERUM MAG 1.4 - 2.0 Magnesium Oxide (Magnesium Oxide) 800 mg PO PRN PRN PRN Reason: FOR SERUM MAG < 1.4 Metoprolol Tartrate (Lopressor) 5 mg IVP Q6H [facility] Last Admin: 08/16/18 15:23 Dose: 5 mg Miscellaneous Medication (Phos-Nak) 1 pkt PO TIDPRN PRN PRN Reason: FOR PHOS LEVEL 1.0 - 1.8 Miscellaneous Medication (Phos-Nak) 2 pkt PO TIDPRN PRN PRN Reason: FOR PHOS LEVEL 0.5 - 1.0 Morphine Sulfate (Morphine) 2 mg SLOW IVP Q1H PRN PRN Reason: BREAKTHROUGH PAIN/AGITATION Last Admin: 08/12/18 08:42 Dose: 2 mg Morphine Sulfate (Morphine) 4 mg SLOW IVP Q1H PRN PRN Reason: Moderate to Severe Pain (6-10) Last Admin: 08/13/18 06:14 Dose: 4 mg Discontinue Previous Narcotic Pain Medications And Benzodiazepines 1 each FS .ONE [facility] Stop: 09/10/18 15:36 Ccu Electrolyte (Replacement Protocol) 0 each FS PRN PRN PRN Reason: FOR ELECTROLYTE REPLACEMENT Ondansetron HCl (Zofran) 4 mg IVP Q6H PRN PRN Reason: Nausea/Vomiting Last Admin: 08/11/18 03:33 Dose: 4 mg Potassium Chloride (K-Dur) 40 meq PO ASDIR PRN PRN Reason: FOR SERUM K+ 2.5 - 3.5 Potassium Chloride (Klor-Con) 40 meq PER TUBE ASDIR PRN PRN Reason: FOR SERUM K+ 2.5-3.5 Promethazine HCl (Phenergan) 12.5 mg IM/IV Q4H PRN PRN Reason: Nausea/Vomiting Sodium Bicarbonate (Bicarbonate, Sodium) 650 mg PER TUBE .PER PROTOCOL PRN PRN Reason: ENTERAL TUBE OCCLUSION Sodium Chloride (Flush - Normal Saline) 10 ml IVF Q12HR [facility] Last Admin: 08/16/18 08:32 Dose: 10 ml Sodium Chloride (Flush - Normal Saline) 10 ml IVF PRN PRN PRN Reason: Saline Flush
--- NOTE | 2018-08-16 20:52 | PDOC.GSPN ---
Surgery Progress Note: Subj - Subjective Narrative: Patient denied abdominal pain or nausea. Residuals have been low and he is tolerating his tube feeds. He is passing gas. Maximum temperature 99.8 and other vital signs stable. Abdominal exam is benign. Incision looks good. Urinalysis but has been copious. We can continue to advance the tube feeds as tolerated. Surgery Progress Note: Obj - Vital signs Vital signs: Vital Signs - Most Recent Temp Pulse Resp BP Pulse Ox 98.3 F 84 15 142/51 H 100 08/16/18 20:00 08/16/18 18:28 08/16/18 18:00 08/16/18 13:04 08/16/18 07:14 Surgery Progress Note: Results - Labs Result Diagrams: 08/16/18 05:25 08/16/18 05:25
[2018-08-17] MEDS: Pantoprazole 80 MG, Admixture Fee 1 EACH in Sodium Chloride 0.9% 100 ML IVP SCH (02:51)
[2018-08-17] MEDS: Piperacillin/Tazobactam 3.375 GM in Sodium Chloride 0.9% 100 ML IVPB SCH ×4 (03:09→21:53)
[2018-08-17] MEDS: Metoprolol Tartrate 5 MG/5 ML VIAL IVP SCH ×2 (03:10→09:27)
[2018-08-17 03:12] LABS: #Lymphocytes 0.5 thou/uL (1.20-3.40); #Monocytes 0.7 thou/uL (0.11-0.59); #Neutrophils 10.1 thou/uL (1.40-6.50); %Basophils 0.1 % (0.0-1.0); %Lymphocytes 4.3 % (21.0-51.0); %Monocytes 6.4 % (0.0-10.0); %Neutrophils 89.1 % (42.0-75.0); Hemoglobin 8.8 g/dL (14.0-18.0); Mean Corpuscular HGB CONC 30.9 g/dL (32.0-36.0); Mean Corpuscular Hemoglobin 29.9 pg (27.0-31.0); Mean Corpuscular Volume 96.9 fL (78.0-98.0); Mean Platelet Volume 8.4 fL (7.4-10.4); Platelet Count 172 thou/uL (130-400); RBC Distribution Width 14.8 % (11.5-14.5); Red Blood Cell (RBC) Count 2.93 mill/uL (4.70-6.10); White Blood Cell (WBC) Count 11.4 thou/uL (4.8-10.8)
[2018-08-17 03:49] LABS: Anion Gap 10 mmol/L (10-20); BUN (Urea Nitrogen) 24 mg/dL (8.4-25.7); Calc. Creatinine Clearance 117 mL/min (70-130); Calcium 8.7 mg/dL (7.8-10.44); Carbon Dioxide 31 mmol/L (23-31); Chloride 105 mmol/L (98-107); Estimated GFR-MDRD Greater than 90; Glucose 137 mg/dL (80-115); Potassium 4.4 mmol/L (3.5-5.1); Sodium 142 mmol/L (136-145)
[2018-08-17] MEDS: Haloperidol Lactate 5 MG/ML VIAL IM SCH ×3 (05:51→21:52)
[2018-08-17 07:20] LABS: Actual Bicarbonate (HCO3a) 27.2 mEq/L (22-28); Base Excess (BEa) 0.8 mEq/L (-2.0 to +3.0); CO2 Tension 52.5 mmHg (35.0-45.0); Calcium, Ionized 1.17 mmol/L (1.12-1.30); Carboxyhemoglobin (COHb) 1.9 gm% (0.0-3.0); Hemoglobin (Hb) 9.8 g/dL (14.0-18.0); O2 Tension (PaO2) 83.8 mmHg (> 80.0); Potassium - ABG Lab 4.26 mmol/L (3.70-5.30); pH, Arterial 7.33 (7.35-7.45)
[2018-08-17 07:24] LABS: Puncture Site L.R.
[2018-08-17 07:25] LABS: ALV-art Gradient 171.425 (0-20)
--- NOTE | 2018-08-17 07:32 | RAD ---
AP VIEW OF THE CHEST: INDICATION: History of intubation. COMPARISON: Prior exam dated 08/16/18. FINDINGS/IMPRESSION: Bibasilar pleural parenchymal opacities persist. ET tube and gastric catheter appear unchanged. No pneumothorax is evident. Portions of the lower lobes are excluded which limits evaluation. No acute osseous abnormality is evident. POS: BH
[2018-08-17] MEDS: fentaNYL Citrate/PF 2,000 MCG in Sodium Chloride 0.9% 60 ML IV SCH ×2 (07:39→18:35)
[2018-08-17] MEDS: Dexamethasone 4 mg/ml Vial SLOW IVP SCH (08:40)
[2018-08-17] MEDS: Lorazepam 2 MG/ML VIAL SLOW IVP SCH ×2 (08:40→21:51)
[2018-08-17] MEDS: acetaZOLAMIDE Sodium 500 MG in Sodium Chloride 0.9% 50 ML IVPB SCH (08:55)
--- NOTE | 2018-08-17 10:52 | PRG ---
DATE OF SERVICE: 08/17/2018 The patient is doing fine from his gut. His bowels are working and he is passing gas. He is tolerat ing tube feeds. Temperature, he is afebrile, pulse 81, blood pressure 142/54. Urine output 6000. LABORATORY: White count of 11, H&H 8 and 28, platelet count 172. Electrolytes are fine. Glucose 13 7. ASSESSMENT: Pulmonary insufficiency status post bleeding ulcer repair. PLAN: Plan is per Pulmonary.
[2018-08-17] MEDS ORDERED: Furosemide 40 MG/4 ML VIAL IVP SCH (12:19)
--- NOTE | 2018-08-17 12:34 | PRG ---
DATE OF SERVICE: 08/17/2018 Mr. Fernandes has had no bleeding over the weekend. He is still intubated. He is tolerating his tu be feeds. The nurses note he has had pretty good bowel movements on the and then had a smear to day. They still remain dark. Family is at the bedside. Medications were reviewed. He remains on Decadron 4 q.12h. PHYSICAL EXAMINATION: VITAL SIGNS: Temperature 99.8 maximum on the , 97.8 today, pulse 87, blood pressure 139/59. Fol ey output 810 in the past 12 hours, 6150 yesterday and was 3082. NG tube is in place, breathing tube is in place. LUNGS: Clear. ABDOMEN: Nontender. EXTREMITIES: No edema. LABORATORY STUDIES: White count 11.4, hemoglobin 8.8, platelet count 172. PH 7.33, CO2 of 52, O2 83 . Sodium 142, potassium 4.4, BUN and creatinine are 24 and 0.72. AST, ALT did come down to 91 and 1 97 on 08/15/2018. ASSESSMENT: 1. Likely shock liver, resolved. 2. Gastrointestinal hemorrhage, resolved. 3. Status post laparotomy with oversew of ulcer. 4. Pulmonary edema likely related to blood products, massive transfusion protocol. 5. Borderline studies for adrenal insufficiency, on stress dose steroids presently. RECOMMENDATIONS: From a GI standpoint, I think the Protonix drip can come off and go on oral Protoni x as the ulcer has been oversewn and the only other thing we are waiting from a GI standpoint is his H. pylori serology.
--- NOTE | 2018-08-17 12:51 | PDOC.PN ---
- Subjective Encounter Start Date: 08/17/18 Encounter Start Time: 09:20 Pt seen for followup re: GI bleed. Intubated, unable to complete ROS. - Objective Resuscitation Status: Resuscitation Status FULL:Full Resuscitation MAR Reviewed: Yes Vital Signs & Weight: Vital Signs (12 hours) Temp Pulse Resp BP Pulse Ox 08/17/18 12:00 97.9 F 15 08/17/18 10:30 87 139/56 L 08/17/18 10:29 87 15 100 08/17/18 10:00 15 08/17/18 08:00 18 08/17/18 07:08 100 08/17/18 07:02 83 166/80 H 08/17/18 07:00 97.8 F 92 18 100 08/17/18 06:00 16 08/17/18 04:00 98.3 F 17 08/17/18 02:19 79 08/17/18 02:00 15 Weight Admit Weight 168 lb 11.199 oz Weight 180 lb 3 oz Most Recent Monitor Data Heart Rate from ECG 79 NIBP 158/66 NIBP BP-Mean 96 Respiration from ECG 15 SpO2 100 I&O: 08/16/18 08/17/18 08/18/18 06:59 06:59 06:59 Intake Total 2606.6 3082 90 Output Total 5315 6155 1010 [facility]2708.4 -3073 -920 Result Diagrams: 08/17/18 03:00 08/17/18 03:00 EKG Reviewed by me: Yes (Tele: NSR) Phys Exam - Physical Examination Intubation HEENT: moist MMs NGT, ETT Respiratory: clear to auscultation bilateral Cardiovascular: RRR Gastrointestinal: soft Neurological: moves all 4 limbs Deviation from normal: Unable to assess Dx/Plan (1) GI bleed Code(s): K92.2 - GASTROINTESTINAL HEMORRHAGE, UNSPECIFIED Status: Acute Comment: on IV PPI for duodenal ulcer. Pt had surgery, currently on ventilator in CCU (2) Duodenal ulcer Status: Acute Comment: s/p surgery, continue PPI. (3) HTN (hypertension) Code(s): I10 - ESSENTIAL (PRIMARY) HYPERTENSION Status: Chronic Comment: Blood pressure slightly high, continue to monitor vital signs, titrate antihypertensives as needed (4) SVT (supraventricular tachycardia) Code(s): I47.1 - SUPRAVENTRICULAR TACHYCARDIA Status: Resolved Comment: in sinus rhythm - Plan * . Review of Systems - Medications/Allergies Allergies/Adverse Reactions: Allergies Allergy/AdvReac Type Severity Reaction Status Date / Time Penicillins Allergy Rash Verified 08/11/18 04:01 Medications: Current Medications Albuterol/Ipratropium (Duoneb) 3 ml NEB [id number] [facility] Last Admin: 08/17/18 10:29 Dose: 3 ml Albuterol/Ipratropium (Duoneb) 3 ml NEB PRN PRN PRN Reason: Dyspnea/Wheezing/SOB Lipase/Protease/Amylase (Madeline Issa [id number]) 1 cap FS .PER PROTOCOL PRN PRN Reason: TUBE OCCLUSION PROTOCOL Cosyntropin (Cortrosyn) 250 mcg SLOW IVP WILLCALL [facility] Last Admin: 08/14/18 12:00 Dose: 250 mcg Furosemide (Lasix) 60 mg IVP ONE [facility] Stop: 08/17/18 14:00 Last Admin: 08/17/18 12:40 Dose: 60 mg Haloperidol Lactate (Haldol) 10 mg IM Q8HR [facility] Piperacillin Sod/Tazobactam (Sod 3.375 gm/ Sodium Chloride) 100 mls @ 200 mls/ hr IVPB 0300,0900,1500,2100 [facility] Last Admin: 08/17/18 08:39 Dose: 100 mls Fentanyl Citrate 2,000 mcg/ (Sodium Chloride) 100 mls @ 0 mls/hr IV INF [facility]; Protocol Stop: 09/10/18 15:36 Last Admin: 08/17/18 07:39 Dose: 100 mls Fentanyl Citrate (Fentanyl Bolus) 250 mls @ 0 mls/hr IVPB PRN PRN PRN Reason: Breakthrough pain/agitation Stop: 09/10/18 15:36 Potassium Chloride 40 meq/ (Sodium Chloride) 270 mls @ 135 mls/hr IVPB ASDIR PRN PRN Reason: FOR SERUM K+ 2.5 - 3.5 Last Admin: 08/13/18 14:33 Dose: 270 mls Potassium Chloride 40 meq/ (Device) 100 mls @ 50 mls/hr IVPB ASDIR PRN PRN Reason: FOR SERUM K+ 2.5 - 3.5 Magnesium Sulfate 1 gm/ Sodium (Chloride) 102 mls @ 102 mls/hr IV PRN PRN PRN Reason: MAG LEVEL 1.4 - 2.0 Potassium Phosphate 9 mmol/ (Sodium Chloride) 103 mls @ 25.75 mls/hr IVPB ASDIR PRN PRN Reason: Phosphate 1.0-1.8 Potassium Phosphate 12 mmol/ (Sodium Chloride) 254 mls @ 63.5 mls/hr IV ASDIR PRN PRN Reason: Serum phosphate 0.5-0.9 Potassium Phosphate 15 mmol/ (Sodium Chloride) 255 mls @ 63.75 mls/hr IV ASDIR PRN PRN Reason: Serum Phos < 0.5 Magnesium Sulfate 2 gm/ Sodium (Chloride) 104 mls @ 100 mls/hr IVPB ASDIR [facility] Last Admin: 08/11/18 19:40 Dose: 104 mls Diltiazem HCl 125 mg/ Sodium (Chloride) 125 mls @ 5 mls/hr IVPB INF [facility]; Protocol Last Admin: 08/16/18 03:22 Dose: 125 mls Sodium Chloride (1/2 Normal Saline) 1,000 mls @ 0 mls/hr IV .Q0M [facility] Acetazolamide Sodium 500 mg/ (Sodium Chloride) 50 mls @ 100 mls/hr IVPB DAILY [facility]; Protocol Stop: 08/19/18 09:01 Last Admin: 08/17/18 08:55 Dose: 50 mls Labetalol HCl (Normodyne) 20 mg SLOW IVP Q10MIN PRN PRN Reason: Hypertension Last Admin: 08/15/18 05:42 Dose: 20 mg Lorazepam (Ativan) 2 mg SLOW IVP Q1H PRN PRN Reason: Breakthrough agitation Stop: 09/10/18 15:36 Last Admin: 08/16/18 04:53 Dose: 2 mg Lorazepam (Ativan) 1 mg SLOW IVP Q12HR [facility] Last Admin: 08/17/18 08:40 Dose: 1 mg Magnesium Oxide (Magnesium Oxide) 400 mg PO BIDPRN PRN PRN Reason: FOR SERUM MAG 1.4 - 2.0 Magnesium Oxide (Magnesium Oxide) 800 mg PO PRN PRN PRN Reason: FOR SERUM MAG < 1.4 Methylprednisolone Sodium Succinate (Solu-Medrol) 20 mg IVP Q12HR [facility] Metoprolol Tartrate (Lopressor) 5 mg IVP Q6H [facility] Last Admin: 08/17/18 09:27 Dose: 5 mg Miscellaneous Medication (Phos-Nak) 1 pkt PO TIDPRN PRN PRN Reason: FOR PHOS LEVEL 1.0 - 1.8 Miscellaneous Medication (Phos-Nak) 2 pkt PO TIDPRN PRN PRN Reason: FOR PHOS LEVEL 0.5 - 1.0 Morphine Sulfate (Morphine) 2 mg SLOW IVP Q1H PRN PRN Reason: BREAKTHROUGH PAIN/AGITATION Last Admin: 08/12/18 08:42 Dose: 2 mg Morphine Sulfate (Morphine) 4 mg SLOW IVP Q1H PRN PRN Reason: Moderate to Severe Pain (6-10) Last Admin: 08/13/18 06:14 Dose: 4 mg Discontinue Previous Narcotic Pain Medications And Benzodiazepines 1 each FS .ONE [facility] Stop: 09/10/18 15:36 Ccu Electrolyte (Replacement Protocol) 0 each FS PRN PRN PRN Reason: FOR ELECTROLYTE REPLACEMENT Ondansetron HCl (Zofran) 4 mg IVP Q6H PRN PRN Reason: Nausea/Vomiting Last Admin: 08/11/18 03:33 Dose: 4 mg Pantoprazole Sodium (Protonix) 40 mg PO DAILY [facility] Potassium Chloride (K-Dur) 40 meq PO ASDIR PRN PRN Reason: FOR SERUM K+ 2.5 - 3.5 Potassium Chloride (Klor-Con) 40 meq PER TUBE ASDIR PRN PRN Reason: FOR SERUM K+ 2.5-3.5 Promethazine HCl (Phenergan) 12.5 mg IM/IV Q4H PRN PRN Reason: Nausea/Vomiting Sodium Bicarbonate (Bicarbonate, Sodium) 650 mg PER TUBE .PER PROTOCOL PRN PRN Reason: ENTERAL TUBE OCCLUSION Sodium Chloride (Flush - Normal Saline) 10 ml IVF Q12HR [facility] Last Admin: 08/17/18 08:40 Dose: 10 ml Sodium Chloride (Flush - Normal Saline) 10 ml IVF PRN PRN PRN Reason: Saline Flush
--- NOTE | 2018-08-17 13:52 | PDOC.CTH ---
<Nina Jackman - Last Filed: 08/17/18 13:50> Cardiology Progress Note - Subjective The pt seen and examined. No overnight events. No cardiac complaints. On mechanical vent with vent sedation. - Objective Vital Signs Temp Pulse Resp BP Pulse Ox 08/17/18 12:00 97.9 F 15 08/17/18 10:30 87 139/56 L 08/17/18 10:29 87 15 100 08/17/18 10:00 15 08/17/18 08:00 18 08/17/18 07:08 100 08/17/18 07:02 83 166/80 H 08/17/18 07:00 97.8 F 92 18 100 08/17/18 06:00 16 08/17/18 04:00 98.3 F 17 08/17/18 02:19 79 08/17/18 02:00 15 Admit Weight 168 lb 11.199 oz Weight 180 lb 3 oz 08/16/18 08/17/18 08/18/18 06:59 06:59 06:59 Intake Total 2606.6 3082 157 Output Total 5315 6155 1435 Balance -2708.4 -3073 -1278 - Physical Examination Neck: carotid US brisk Lungs: other: (coarses and diminished at bases) Heart: RRR Abdomen: soft Extremities: other: (generalized edema) - Telemetry Telemetry Rhythm: SR - Labs Result Diagrams: 08/17/18 03:00 08/17/18 03:00 Troponin/CKMB CK-MB (CK-2) 13.9 ng/mL (0-6.6) H* 08/11/18 16:29 Troponin I 0.083 ng/mL (< 0.028) H 08/12/18 12:13 - Assessment/Plan 1. SVT - Well controlled with Diltiazem IV drip and Metoprolol 5mg IV q6hrs. Change Diltiazem to 30mg QID and Metoprolol 25mg BID. EP consult for possible SVT ablation. 2. GI bleed 2/2 Duodenal ulcer - s/p Ex lap pyloroplasty on 08/12/18. On Protonix IV. 3. HTN - stable with current medication. Cont. to monitor 4. Hyperlipidemia - will resume Simvastatin when the pt is stable 5. DM type 2 - managed by PCP SAMANTHA reviewed * Echo on 08/12/18 showed EF >60%, trace TR and MR. Review of Systems - Review of Systems Constitutional: reports: see HPI EENTM: reports: see HPI Respiratory: reports: see HPI Cardiac (ROS): reports: see HPI ABD/GI: reports: see HPI <MakedaShivani Higinio - Last Filed: 08/17/18 15:12> Cardiology Progress Note - Objective Vital Signs Temp Pulse Resp BP Pulse Ox 08/17/18 14:29 78 138/60 08/17/18 14:27 77 10 L 100 08/17/18 14:00 12 08/17/18 12:00 97.9 F 15 08/17/18 10:30 87 139/56 L 08/17/18 10:29 87 15 100 08/17/18 10:00 15 08/17/18 08:00 18 08/17/18 07:08 100 08/17/18 07:02 83 166/80 H 08/17/18 07:00 97.8 F 92 18 100 08/17/18 06:00 16 08/17/18 04:00 98.3 F 17 Admit Weight 168 lb 11.199 oz Weight 180 lb 3 oz 08/16/18 08/17/18 08/18/18 06:59 06:59 06:59 Intake Total 2606.6 3082 157 Output Total 5315 6155 2755 [facility] -2708.4 -3073 -2598 - Labs Result Diagrams: 08/17/18 03:00 08/17/18 03:00 Troponin/CKMB CK-MB (CK-2) 13.9 ng/mL (0-6.6) H* 08/11/18 16:29 Troponin I 0.083 ng/mL (< 0.028) H 08/12/18 12:13 - Assessment/Plan Pt. seen and eval. by me. I agree with the A/P by the [employer]. He remains in NSR. Once taking po we can stop the IV diltiazem and start po. Cardiac status is stable. I will sign off.
[2018-08-17] MEDS ORDERED: Diltiazem 125 MG in Sodium Chloride 0.9% 100 ML IVPB SCH (14:00)
--- NOTE | 2018-08-17 15:28 | PRG ---
DATE OF SERVICE: 08/17/2018 SUBJECTIVE: He has been stable over the weekend. He continues to slowly improve. He had a brisk di uresis yesterday of negative 3073 mL. He is still sedated for ventilation. OBJECTIVE: LUNGS: Remarkable for coarse equal breath sounds. HEART: Regular rhythm. ABDOMEN: Soft. EXTREMITIES: Without asymmetry. ACTH stimulation test last week is suggestive of relative adrenal insufficiency. His cortisol level was only 2 as expected since he was on Decadron, but with ACTH, his cortisol level only went to 12. LABORATORY DATA: Sodium today is 142, potassium 4.4, chloride 105, bicarbonate 31, BUN 24, creatinin e 0.72. White count 11.4, hemoglobin 8.8, platelets 172. PH 7.33, CO2 52, pO2 of 83. IMPRESSION: 1. Respiratory failure associated with emergent laparotomy with oversew bleeding duodenal ulcer afte r upper endoscopy. 2. Paranoid schizophrenia. 3. Deconditioning. 4. Supraventricular tachycardia that has not recurred. 5. Mixture of cardiogenic and noncardiogenic pulmonary edema. We will continue with diuresis. PLAN: Diurese more today, decrease ventilatory support. Hopefully we can consider weaning and extub ation tomorrow. CRITICAL CARE TIME: 30 minutes.
[2018-08-17] MEDS: Lorazepam 2 MG/ML VIAL SLOW IVP PRN (16:03)
[2018-08-17 20:09] LABS: H. pylori IgA ABS Less than 9.0 units (0.0-8.9); H. pylori IgG ABS 0.97 (0.00-0.79); H. pylori IgM ABS Less than 9.0 units (0.0-8.9)
[2018-08-17] MEDS: Metoprolol Tartrate 25 MG TAB PO SCH (21:52)
[2018-08-18] MEDS: Piperacillin/Tazobactam 3.375 GM in Sodium Chloride 0.9% 100 ML IVPB SCH ×4 (03:38→21:02)
[2018-08-18 05:05] LABS: #Lymphocytes 0.7 thou/uL (1.20-3.40); #Monocytes 1.4 thou/uL (0.11-0.59); #Neutrophils 9.4 thou/uL (1.40-6.50); %Basophils 0.1 % (0.0-1.0); %Eosinophils 0.1 % (0.0-10.0); %Lymphocytes 6.3 % (21.0-51.0); %Monocytes 12.1 % (0.0-10.0); %Neutrophils 81.4 % (42.0-75.0); Hemoglobin 8.8 g/dL (14.0-18.0); Mean Corpuscular HGB CONC 30.1 g/dL (32.0-36.0); Mean Corpuscular Hemoglobin 29.1 pg (27.0-31.0); Mean Corpuscular Volume 96.6 fL (78.0-98.0); Mean Platelet Volume 8.4 fL (7.4-10.4); Platelet Count 193 thou/uL (130-400); RBC Distribution Width 14.9 % (11.5-14.5); Red Blood Cell (RBC) Count 3.01 mill/uL (4.70-6.10); White Blood Cell (WBC) Count 11.6 thou/uL (4.8-10.8)
[2018-08-18] MEDS: Haloperidol Lactate 5 MG/ML VIAL IM SCH ×3 (05:13→21:23)
[2018-08-18 05:21] LABS: Anion Gap 9 mmol/L (10-20); BUN (Urea Nitrogen) 27 mg/dL (8.4-25.7); Calc. Creatinine Clearance 117 mL/min (70-130); Calcium 8.5 mg/dL (7.8-10.44); Carbon Dioxide 31 mmol/L (23-31); Chloride 106 mmol/L (98-107); Estimated GFR-MDRD Greater than 90; Glucose 117 mg/dL (80-115); Potassium 4.1 mmol/L (3.5-5.1); Sodium 142 mmol/L (136-145)
[2018-08-18] MEDS: fentaNYL Citrate/PF 2,000 MCG in Sodium Chloride 0.9% 60 ML IV SCH (06:32)
--- NOTE | 2018-08-18 09:16 | RAD ---
PORTABLE CHEST: Comparison: Prior day's study. History: Respiratory distress. FINDINGS: Endotracheal and NG tubes remain in satisfactory position. Interval improvement to the bibasilar lung changes, particularly changes in the left base. Old right rib fractures are seen. IMPRESSION: Improving bibasilar lung opacities, particularly the changes in the left base. POS: NICKOLAS
[2018-08-18] MEDS: acetaZOLAMIDE Sodium 500 MG in Sodium Chloride 0.9% 50 ML IVPB SCH (10:59)
--- NOTE | 2018-08-18 11:05 | PRG ---
DATE OF SERVICE: 08/18/2018 SUBJECTIVE: The patient remains on the ventilator. He had a good diuresis. ____ his wean. He is t olerating tube feedings. PHYSICAL EXAMINATION: VITAL SIGNS: His T-max was 99.4, pulse 96, blood pressure 175/65. He is sedated on the vent. LUNGS: Relatively clear. ABDOMEN: Soft, nondistended. The incision is healing well. There is no drainage or inflammation. LABORATORY DATA: His white count is 11.6, H&H is 8.8 and 29, platelet count 193. Electrolytes, his BUN is 27. His creatinine is 0.7, glucose 117. IMAGING: Chest x-ray shows some blunting of the costophrenic angles, may be a little bit of fluid in the right fissure. It is a little bit better than it has been. ASSESSMENT: Doing well from surgery. Still with respiratory insufficiency. PLAN: Per Pulmonary and Critical Care.
[2018-08-18] MEDS: Metoprolol Tartrate 25 MG TAB PO SCH ×2 (11:07→20:58)
[2018-08-18] MEDS: Lorazepam 2 MG/ML VIAL SLOW IVP SCH ×2 (11:07→21:03)
[2018-08-18] MEDS: Pantoprazole 40 MG GRANULES PACKET PO SCH (11:07)
--- NOTE | 2018-08-18 14:27 | PRG ---
DATE OF SERVICE: 08/18/2018 SUBJECTIVE: Ruiz Fernandes had vent support decreased this morning. He had signs of muscle weakness on exam and was tachypneic and slightly dyssynchronous with ventilation. His Precedex was started and his synchrony improved and his appearance of comfort improved dramatically. OBJECTIVE: VITAL SIGNS: Blood pressure was 182/52 earlier today, 156/66 at 7:00. Heart rates 110. Intake and output is negative 1638. LUNGS: Clear today. HEART: Regular rhythm. ABDOMEN: Soft. EXTREMITIES: Without asymmetry. LABORATORY DATA: White count 11.6, hemoglobin 8.8, platelets 193. Sodium 142, potassium 4.1, chloride 106, bicarbonate 31, BUN 27, creatinine 0.7. IMPRESSION: 1. Volume overload after resuscitation for massive gastrointestinal bleed. 2. Status post emergent laparotomy with oversew of a duodenal ulcer. 3. Deconditioning and weakness. 4. Paranoid schizophrenia. 5. Pulmonary edema that improved on today's radiograph by my review. 6. Blood loss anemia. PLAN: Continue mechanical ventilation with slow weaning. We will continue the Precedex. We will discontinue the fentanyl and treat him with p.r.n. morphine. With regards to his relative adrenal insufficiency, he will remain on a low dose of steroids. Since he is hemodynamically stable, we will cut this back to once a day. I met with the family and answered all their questions. Critical care time was 30 minutes. [facility]
--- NOTE | 2018-08-18 16:58 | PDOC.PN ---
- Subjective Encounter Start Date: 08/18/18 Encounter Start Time: 11:30 Subjective: pt intubated - Objective Resuscitation Status: Resuscitation Status FULL:Full Resuscitation Vital Signs & Weight: Vital Signs (12 hours) Temp Pulse Resp BP Pulse Ox 08/18/18 16:00 99.3 F 24 H 08/18/18 14:31 76 136/55 L 08/18/18 14:30 77 18 99 08/18/18 14:00 19 08/18/18 12:00 99.4 F 14 08/18/18 10:32 110 H 182/52 H 08/18/18 10:31 106 H 17 99 08/18/18 10:00 19 08/18/18 08:00 98.9 F 22 H 08/18/18 06:55 88 157/68 H 08/18/18 06:54 93 17 99 08/18/18 06:00 14 Weight Admit Weight 168 lb 11.199 oz Weight 176 lb 5.917 oz Most Recent Monitor Data Heart Rate from ECG 96 NIBP 177/79 NIBP BP-Mean 122 Respiration from ECG 32 SpO2 100 I&O: 08/17/18 08/18/18 08/19/18 06:59 06:59 06:59 Intake Total 3082 2937.0 220 Output Total 6155 4575 1470 Balance -3073 -1638.0 -1250 Result Diagrams: 08/18/18 04:50 08/18/18 04:50 Additional Labs: Accuchecks 08/18/18 08/17/18 03:58 23:46 POC Glucose 121 H 133 H Phys Exam - Physical Examination Neck: no nodes, no JVD, supple, full ROM mild crackles to bases Cardiovascular: RRR, no significant murmur, no rub, gallop, irregular Gastrointestinal: soft, positive bowel sounds mid abd josey Musculoskeletal: no edema, pulses present, edema present Dx/Plan (1) Acute respiratory failure Code(s): J96.00 - ACUTE RESPIRATORY FAILURE, UNSP W HYPOXIA OR HYPERCAPNIA Status: Acute (2) Duodenal ulcer Status: Acute Comment: s/p surgery, continue PPI. (3) GI bleed Code(s): K92.2 - GASTROINTESTINAL HEMORRHAGE, UNSPECIFIED Status: Acute Comment: on IV PPI for duodenal ulcer. Pt had surgery, currently on ventilator in CCU - Plan hh stable will continue to monitor -: pt still intubated -: pt on haldol q6 would hold on starting olanzapine in concern for NMS -: will add lisinopril due to elevated bp -: pt on tube feeds * . Review of Systems - Review of Systems Other: unable to obtain - Medications/Allergies Allergies/Adverse Reactions: Allergies Allergy/AdvReac Type Severity Reaction Status Date / Time Penicillins Allergy Rash Verified 08/11/18 04:01 Medications: Current Medications Albuterol/Ipratropium (Duoneb) 3 ml NEB [id number] [facility] Last Admin: 08/18/18 14:30 Dose: 3 ml Albuterol/Ipratropium (Duoneb) 3 ml NEB PRN PRN PRN Reason: Dyspnea/Wheezing/SOB Lipase/Protease/Amylase (Madeline Issa 38053) 1 cap FS .PER PROTOCOL PRN PRN Reason: TUBE OCCLUSION PROTOCOL Diltiazem HCl (Cardizem) 30 mg PO ACHS [facility] Last Admin: 08/18/18 16:30 Dose: 30 mg Haloperidol Lactate (Haldol) 10 mg IM Q8HR [facility] Last Admin: 08/18/18 14:55 Dose: 10 mg Piperacillin Sod/Tazobactam (Sod 3.375 gm/ Sodium Chloride) 100 mls @ 200 mls/ hr IVPB 0300,0900,1500,2100 [facility] Last Admin: 08/18/18 14:55 Dose: 100 mls Potassium Chloride 40 meq/ (Sodium Chloride) 270 mls @ 135 mls/hr IVPB ASDIR PRN PRN Reason: FOR SERUM K+ 2.5 - 3.5 Last Admin: 08/13/18 14:33 Dose: 270 mls Potassium Chloride 40 meq/ (Device) 100 mls @ 50 mls/hr IVPB ASDIR PRN PRN Reason: FOR SERUM K+ 2.5 - 3.5 Magnesium Sulfate 1 gm/ Sodium (Chloride) 102 mls @ 102 mls/hr IV PRN PRN PRN Reason: MAG LEVEL 1.4 - 2.0 Potassium Phosphate 9 mmol/ (Sodium Chloride) 103 mls @ 25.75 mls/hr IVPB ASDIR PRN PRN Reason: Phosphate 1.0-1.8 Potassium Phosphate 12 mmol/ (Sodium Chloride) 254 mls @ 63.5 mls/hr IV ASDIR PRN PRN Reason: Serum phosphate 0.5-0.9 Potassium Phosphate 15 mmol/ (Sodium Chloride) 255 mls @ 63.75 mls/hr IV ASDIR PRN PRN Reason: Serum Phos < 0.5 Magnesium Sulfate 2 gm/ Sodium (Chloride) 104 mls @ 100 mls/hr IVPB ASDIR [facility] Last Admin: 08/11/18 19:40 Dose: 104 mls Sodium Chloride (1/2 Normal Saline) 1,000 mls @ 0 mls/hr IV .Q0M [facility] Last Admin: 08/18/18 03:39 Dose: 1,000 mls Acetazolamide Sodium 500 mg/ (Sodium Chloride) 50 mls @ 100 mls/hr IVPB DAILY [facility]; Protocol Stop: 08/19/18 09:01 Last Admin: 08/18/18 10:59 Dose: 50 mls Dexmedetomidine HCl 200 mcg/ (Sodium Chloride) 50 mls @ 0 mls/hr IVPB INF [facility]; Protocol Last Admin: 08/18/18 16:18 Dose: 50 mls Labetalol HCl (Normodyne) 20 mg SLOW IVP Q10MIN PRN PRN Reason: Hypertension Last Admin: 08/15/18 05:42 Dose: 20 mg Lorazepam (Ativan) 2 mg SLOW IVP Q1H PRN PRN Reason: Breakthrough agitation Stop: 09/10/18 15:36 Last Admin: 08/17/18 16:03 Dose: 2 mg Lorazepam (Ativan) 1 mg SLOW IVP Q12HR [facility] Last Admin: 08/18/18 11:07 Dose: 1 mg Magnesium Oxide (Magnesium Oxide) 400 mg PO BIDPRN PRN PRN Reason: FOR SERUM MAG 1.4 - 2.0 Magnesium Oxide (Magnesium Oxide) 800 mg PO PRN PRN PRN Reason: FOR SERUM MAG < 1.4 Methylprednisolone Sodium Succinate (Solu-Medrol) 20 mg IVP DAILY [facility] Metoprolol Tartrate (Lopressor) 25 mg PO BID [facility] Last Admin: 08/18/18 11:07 Dose: 25 mg Miscellaneous Medication (Phos-Nak) 1 pkt PO TIDPRN PRN PRN Reason: FOR PHOS LEVEL 1.0 - 1.8 Miscellaneous Medication (Phos-Nak) 2 pkt PO TIDPRN PRN PRN Reason: FOR PHOS LEVEL 0.5 - 1.0 Morphine Sulfate (Morphine) 2 mg SLOW IVP Q1H PRN PRN Reason: BREAKTHROUGH PAIN/AGITATION Last Admin: 08/12/18 08:42 Dose: 2 mg Morphine Sulfate (Morphine) 4 mg SLOW IVP Q1H PRN PRN Reason: Moderate Pain (4-6) Discontinue Previous Narcotic Pain Medications And Benzodiazepines 1 each FS .ONE [facility] Stop: 09/10/18 15:36 Ccu Electrolyte (Replacement Protocol) 0 each FS PRN PRN PRN Reason: FOR ELECTROLYTE REPLACEMENT Ondansetron HCl (Zofran) 4 mg IVP Q6H PRN PRN Reason: Nausea/Vomiting Last Admin: 08/11/18 03:33 Dose: 4 mg Pantoprazole Sodium (Protonix) 40 mg PO DAILY [facility] Last Admin: 08/18/18 11:07 Dose: 40 mg Potassium Chloride (K-Dur) 40 meq PO ASDIR PRN PRN Reason: FOR SERUM K+ 2.5 - 3.5 Potassium Chloride (Klor-Con) 40 meq PER TUBE ASDIR PRN PRN Reason: FOR SERUM K+ 2.5-3.5 Promethazine HCl (Phenergan) 12.5 mg IM/IV Q4H PRN PRN Reason: Nausea/Vomiting Sodium Bicarbonate (Bicarbonate, Sodium) 650 mg PER TUBE .PER PROTOCOL PRN PRN Reason: ENTERAL TUBE OCCLUSION Sodium Chloride (Flush - Normal Saline) 10 ml IVF Q12HR [facility] Last Admin: 08/18/18 11:08 Dose: 10 ml Sodium Chloride (Flush - Normal Saline) 10 ml IVF PRN PRN PRN Reason: Saline Flush
[2018-08-19] MEDS: Lorazepam 2 MG/ML VIAL SLOW IVP PRN ×2 (00:20→02:49)
[2018-08-19] MEDS: Morphine 4 MG/ML VIAL SLOW IVP PRN (02:32)
--- NOTE | 2018-08-19 02:34 | PRG ---
DATE OF SERVICE: 08/18/2018 SUBJECTIVE: Mr. Fernandes is a 68-year-old, who is still intubated in the ICU, has had no bleeding per the nurse. PHYSICAL EXAMINATION: VITAL SIGNS: Temperature is 99.3, blood pressure 177/79, heart rate 68. ABDOMEN: Soft, nontender. LABORATORY STUDIES: On 08/18/2018, white count was 11.6, hemoglobin was 8.8, platelet count 193. Se rology: H. pylori IgG was positive mildly. IgA, IgM negative. ASSESSMENT: 1. Gastrointestinal hemorrhage from ulcer, likely NSAID related with positive H. pylori probably yahir uld be treated on discharge once he is extubated. 2. Gastrointestinal bleeding, resolved. 3. Respiratory failure persists. RECOMMENDATIONS: We will continue PPI therapy. When he is ready to go home, he can be treated with a 4-drug regimen for 2 weeks with omeprazole, bismuth q.i.d., metronidazole 500 mg t.i.d., erythromyc in 400 mg b.i.d.
[2018-08-19] MEDS: Piperacillin/Tazobactam 3.375 GM in Sodium Chloride 0.9% 100 ML IVPB SCH ×4 (03:47→21:54)
[2018-08-19 04:35] LABS: Anion Gap 10 mmol/L (10-20); BUN (Urea Nitrogen) 26 mg/dL (8.4-25.7); Calc. Creatinine Clearance 113 mL/min (70-130); Calcium 8.4 mg/dL (7.8-10.44); Carbon Dioxide 27 mmol/L (23-31); Chloride 107 mmol/L (98-107); Estimated GFR-MDRD Greater than 90; Glucose 111 mg/dL (80-115); Potassium 3.9 mmol/L (3.5-5.1); Sodium 140 mmol/L (136-145)
[2018-08-19 04:38] LABS: Eosinophils 1 % (0-10); Hemoglobin 9.1 g/dL (14.0-18.0); Hypochromia SLIGHT = 6-15 cells (100X) (0-5/hpf); Lymphocytes 4 % (21-51); MDiff Complete? YES; Mean Corpuscular HGB CONC 31.2 g/dL (32.0-36.0); Mean Corpuscular Hemoglobin 30.2 pg (27.0-31.0); Mean Corpuscular Volume 96.9 fL (78.0-98.0); Mean Platelet Volume 8.4 fL (7.4-10.4); Monocytes 9 % (0-10); Neutrophil 86 % (42-75); PLT Morphology Comment Appears Adequate; Platelet Count 207 thou/uL (130-400); Polychromasia SLIGHT = 2-3 cells (100X) (0-2/hpf); RBC Distribution Width 14.8 % (11.5-14.5); Red Blood Cell (RBC) Count 3.01 mill/uL (4.70-6.10); White Blood Cell (WBC) Count 10.5 thou/uL (4.8-10.8)
[2018-08-19] MEDS: Haloperidol Lactate 5 MG/ML VIAL IM SCH ×3 (06:34→21:55)
[2018-08-19 07:27] LABS: Base Excess (BEa) -0.4 mEq/L (-2.0 to +3.0); CO2 Tension 44.2 mmHg (35.0-45.0); Calcium, Ionized 1.15 mmol/L (1.12-1.30); Carboxyhemoglobin (COHb) 1.6 gm% (0.0-3.0); Hemoglobin (Hb) 10.6 g/dL (14.0-18.0); O2 Tension (PaO2) 84.9 mmHg (> 80.0); Potassium - ABG Lab 3.63 mmol/L (3.70-5.30); pH, Arterial 7.37 (7.35-7.45)
[2018-08-19 07:29] LABS: Puncture Site LRA
--- NOTE | 2018-08-19 08:41 | RAD ---
PORTABLE CHEST: DATE: 08/19/18. PROVIDED CLINICAL HISTORY: Respiratory insufficiency. FINDINGS: Comparison 08/18/18. Cardiac and mediastinal silhouette is unchanged in appearance. Endotracheal tub e and enteric catheter are again noted, with the distal aspect of the enteric catheter not visualized but below the diaphragm. Extensive chronic lung changes appear similar to the prior study. Promine nce of the pulmonary vasculature and pulmonary interstitium are noted. No pleural fluid or pneumotho rax apparent. IMPRESSION: As above. POS: ANDREI
[2018-08-19] MEDS ORDERED: OLANZAPINE 10 MG PO SCH (09:00)
[2018-08-19] MEDS: Lorazepam 2 MG/ML VIAL SLOW IVP SCH (09:16)
[2018-08-19] MEDS: Metoprolol Tartrate 25 MG TAB PO SCH ×2 (09:56→21:55)
[2018-08-19] MEDS: Pantoprazole 40 MG GRANULES PACKET PO SCH (09:56)
[2018-08-19] MEDS: acetaZOLAMIDE Sodium 500 MG in Sodium Chloride 0.9% 50 ML IVPB SCH (09:56)
[2018-08-19] MEDS: Simvastatin 40 MG TAB PO SCH (09:56)
--- NOTE | 2018-08-19 13:11 | PRG ---
DATE OF SERVICE: 08/19/2018 SUBJECTIVE: Dom's findings are again consistent with muscle weakness. OBJECTIVE: VITAL SIGNS: His heart rate 81, blood pressure 155/55, oximetry is 99%. Intake and output was negative 754. LUNGS: Clear. He had signs of diaphragm weakness on exam. HEART: Regular rhythm. ABDOMEN: Soft. Will give him a little more sedation today. I have recommended tracheostomy since he recently had a laparotomy and PEG, will probably not be optional. I met with the and sister and answered all their questions. Hopefully, tracheostomy facilitate weaning from mechanical ventilation. Critical care time was 30 minutes. [facility]
--- NOTE | 2018-08-19 15:02 | PDOC.PN ---
- Subjective Encounter Start Date: 08/19/18 Encounter Start Time: 12:30 Subjective: pt intubated - Objective Resuscitation Status: Resuscitation Status FULL:Full Resuscitation Vital Signs & Weight: Vital Signs (12 hours) Pulse Resp BP Pulse Ox 08/19/18 14:24 89 153/57 H 08/19/18 14:22 88 49 H 99 08/19/18 11:32 81 151/55 H 08/19/18 11:30 82 41 H 99 08/19/18 07:01 74 153/65 H 08/19/18 06:59 84 26 H 99 08/19/18 06:00 27 H 08/19/18 04:00 31 H Weight Admit Weight 168 lb 11.199 oz Weight 164 lb 10.965 oz Most Recent Monitor Data Heart Rate from ECG 97 NIBP 182/74 NIBP BP-Mean 117 Respiration from ECG 41 SpO2 100 I&O: 08/18/18 08/19/18 08/20/18 06:59 06:59 06:59 Intake Total 2937.0 3125.7 Output Total 4575 3880 Balance -1638.0 -754.3 Result Diagrams: 08/19/18 03:30 08/19/18 03:30 Dx/Plan (1) Acute respiratory failure Code(s): J96.00 - ACUTE RESPIRATORY FAILURE, UNSP W HYPOXIA OR HYPERCAPNIA Status: Acute (2) Duodenal ulcer Status: Acute Comment: s/p surgery, continue PPI. (3) GI bleed Code(s): K92.2 - GASTROINTESTINAL HEMORRHAGE, UNSPECIFIED Status: Acute Comment: on IV PPI for duodenal ulcer. Pt had surgery, currently on ventilator in CCU - Plan pt intubated, vent managment per pulm -: hh stable -: pt on abx * . Review of Systems - Review of Systems Other: pt intubated - Medications/Allergies Allergies/Adverse Reactions: Allergies Allergy/AdvReac Type Severity Reaction Status Date / Time Penicillins Allergy Rash Verified 08/11/18 04:01 Medications: Current Medications Albuterol/Ipratropium (Duoneb) 3 ml NEB P0UI-LL [facility] Last Admin: 08/19/18 14:22 Dose: 3 ml Albuterol/Ipratropium (Duoneb) 3 ml NEB PRN PRN PRN Reason: Dyspnea/Wheezing/SOB Lipase/Protease/Amylase (Madeline Issa [id number]) 1 cap FS .PER PROTOCOL PRN PRN Reason: TUBE OCCLUSION PROTOCOL Diltiazem HCl (Cardizem) 30 mg PO ACHS [facility] Last Admin: 08/19/18 13:56 Dose: 30 mg Fosinopril Sodium (Monopril) 40 mg PO DAILY [facility] Last Admin: 08/19/18 09:56 Dose: 40 mg Haloperidol Lactate (Haldol) 10 mg IM Q8HR [facility] Last Admin: 08/19/18 13:56 Dose: 10 mg Piperacillin Sod/Tazobactam (Sod 3.375 gm/ Sodium Chloride) 100 mls @ 200 mls/ hr IVPB 0300,0900,1500,2100 [facility] Last Admin: 08/19/18 14:41 Dose: 100 mls Potassium Chloride 40 meq/ (Sodium Chloride) 270 mls @ 135 mls/hr IVPB ASDIR PRN PRN Reason: FOR SERUM K+ 2.5 - 3.5 Last Admin: 08/13/18 14:33 Dose: 270 mls Potassium Chloride 40 meq/ (Device) 100 mls @ 50 mls/hr IVPB ASDIR PRN PRN Reason: FOR SERUM K+ 2.5 - 3.5 Magnesium Sulfate 1 gm/ Sodium (Chloride) 102 mls @ 102 mls/hr IV PRN PRN PRN Reason: MAG LEVEL 1.4 - 2.0 Potassium Phosphate 9 mmol/ (Sodium Chloride) 103 mls @ 25.75 mls/hr IVPB ASDIR PRN PRN Reason: Phosphate 1.0-1.8 Potassium Phosphate 12 mmol/ (Sodium Chloride) 254 mls @ 63.5 mls/hr IV ASDIR PRN PRN Reason: Serum phosphate 0.5-0.9 Potassium Phosphate 15 mmol/ (Sodium Chloride) 255 mls @ 63.75 mls/hr IV ASDIR PRN PRN Reason: Serum Phos < 0.5 Magnesium Sulfate 2 gm/ Sodium (Chloride) 104 mls @ 100 mls/hr IVPB ASDIR [facility] Last Admin: 08/11/18 19:40 Dose: 104 mls Sodium Chloride (1/2 Normal Saline) 1,000 mls @ 0 mls/hr IV .Q0M [facility] Last Admin: 08/18/18 03:39 Dose: 1,000 mls Dexmedetomidine HCl 400 mcg/ (Sodium Chloride) 100 mls @ 0 mls/hr IVPB INF [facility] ; Protocol Last Admin: 08/19/18 07:48 Dose: 100 mls Midazolam HCl (Versed) 100 mls @ 0 mls/hr IVPB INF [facility]; Protocol Last Admin: 08/19/18 13:56 Dose: 100 mls Labetalol HCl (Normodyne) 20 mg SLOW IVP Q10MIN PRN PRN Reason: Hypertension Last Admin: 08/15/18 05:42 Dose: 20 mg Lorazepam (Ativan) 1 mg SLOW IVP Q12HR [facility] Last Admin: 08/19/18 09:16 Dose: 1 mg Magnesium Oxide (Magnesium Oxide) 400 mg PO BIDPRN PRN PRN Reason: FOR SERUM MAG 1.4 - 2.0 Magnesium Oxide (Magnesium Oxide) 800 mg PO PRN PRN PRN Reason: FOR SERUM MAG < 1.4 Methylprednisolone Sodium Succinate (Solu-Medrol) 20 mg IVP DAILY [facility] Last Admin: 08/19/18 09:55 Dose: 20 mg Metoprolol Tartrate (Lopressor) 25 mg PO BID [facility] Last Admin: 08/19/18 09:56 Dose: 25 mg Miscellaneous Medication (Phos-Nak) 1 pkt PO TIDPRN PRN PRN Reason: FOR PHOS LEVEL 1.0 - 1.8 Miscellaneous Medication (Phos-Nak) 2 pkt PO TIDPRN PRN PRN Reason: FOR PHOS LEVEL 0.5 - 1.0 Morphine Sulfate (Morphine) 2 mg SLOW IVP Q1H PRN PRN Reason: BREAKTHROUGH PAIN/AGITATION Last Admin: 08/19/18 09:31 Dose: 2 mg Morphine Sulfate (Morphine) 4 mg SLOW IVP Q1H PRN PRN Reason: Moderate Pain (4-6) Last Admin: 08/19/18 02:32 Dose: 4 mg Discontinue Previous Narcotic Pain Medications And Benzodiazepines 1 each FS .ONE [facility] Stop: 09/10/18 15:36 Ccu Electrolyte (Replacement Protocol) 0 each FS PRN PRN PRN Reason: FOR ELECTROLYTE REPLACEMENT Ondansetron HCl (Zofran) 4 mg IVP Q6H PRN PRN Reason: Nausea/Vomiting Last Admin: 08/11/18 03:33 Dose: 4 mg Pantoprazole Sodium (Protonix) 40 mg PO DAILY [facility] Last Admin: 08/19/18 09:56 Dose: 40 mg Potassium Chloride (K-Dur) 40 meq PO ASDIR PRN PRN Reason: FOR SERUM K+ 2.5 - 3.5 Potassium Chloride (Klor-Con) 40 meq PER TUBE ASDIR PRN PRN Reason: FOR SERUM K+ 2.5-3.5 Promethazine HCl (Phenergan) 12.5 mg IM/IV Q4H PRN PRN Reason: Nausea/Vomiting Simvastatin (Zocor) 40 mg PO DAILY [facility] Last Admin: 08/19/18 09:56 Dose: 40 mg Sodium Bicarbonate (Bicarbonate, Sodium) 650 mg PER TUBE .PER PROTOCOL PRN PRN Reason: ENTERAL TUBE OCCLUSION Sodium Chloride (Flush - Normal Saline) 10 ml IVF Q12HR [facility] Last Admin: 08/19/18 09:57 Dose: 10 ml Sodium Chloride (Flush - Normal Saline) 10 ml IVF PRN PRN PRN Reason: Saline Flush
--- NOTE | 2018-08-19 15:09 | RAD ---
CHEST 1 VIEW: Date: 08/19/18 HISTORY: Dyspnea. COMPARISON: Earlier exam same date. FINDINGS: Cardiac silhouette is magnified by projection. Pulmonary vasculature upper limits of normal. Mediasti num is midline. Lines and tubes appear unchanged in position. Chronic linear interstitial thickening and old rib fractures are similar in appearance to the previous study. IMPRESSION: Stable radiographic appearance of the chest. POS: [facility]
[2018-08-20] MEDS: Piperacillin/Tazobactam 3.375 GM in Sodium Chloride 0.9% 100 ML IVPB SCH ×4 (03:47→21:20)
[2018-08-20 05:57] LABS: Anion Gap 9 mmol/L (10-20); BUN (Urea Nitrogen) 26 mg/dL (8.4-25.7); Calc. Creatinine Clearance 102 mL/min (70-130); Calcium 8.5 mg/dL (7.8-10.44); Carbon Dioxide 24 mmol/L (23-31); Chloride 111 mmol/L (98-107); Estimated GFR-MDRD Greater than 90; Glucose 111 mg/dL (80-115); Potassium 3.8 mmol/L (3.5-5.1); Sodium 140 mmol/L (136-145)
[2018-08-20 06:56] LABS: Mean Corpuscular HGB CONC 32.1 g/dL (32.0-36.0); Mean Corpuscular Hemoglobin 30.7 pg (27.0-31.0); Mean Corpuscular Volume 95.7 fL (78.0-98.0); Mean Platelet Volume 9.2 fL (7.4-10.4); Platelet Count 148 thou/uL (130-400); Red Blood Cell (RBC) Count 2.94 mill/uL (4.70-6.10); White Blood Cell (WBC) Count 10.8 thou/uL (4.8-10.8)
[2018-08-20] MEDS: Haloperidol Lactate 5 MG/ML VIAL IM SCH ×3 (07:19→21:22)
[2018-08-20 07:32] LABS: Band 11 % (5-11); Lymphocytes 10 % (21-51); MDiff Complete? YES; Monocytes 5 % (0-10); Neutrophil 69 % (42-75); Polychromasia SLIGHT = 2-3 cells (100X) (0-2/hpf); Reactive Lymphocytes 5 % (0-10)
[2018-08-20 07:59] LABS: Actual Bicarbonate (HCO3a) 22.4 mEq/L (22-28); Base Excess (BEa) -1.7 mEq/L (-2.0 to +3.0); CO2 Tension 35.3 mmHg (35.0-45.0); Calcium, Ionized 1.16 mmol/L (1.12-1.30); Carboxyhemoglobin (COHb) 1.5 gm% (0.0-3.0); Hemoglobin (Hb) 9.6 g/dL (14.0-18.0); O2 Tension (PaO2) 67.1 mmHg (> 80.0); Potassium - ABG Lab 3.75 mmol/L (3.70-5.30); pH, Arterial 7.42 (7.35-7.45)
[2018-08-20 08:00] LABS: Puncture Site L.R.
[2018-08-20 08:01] LABS: ALV-art Gradient 173.975 (0-20)
--- NOTE | 2018-08-20 08:36 | RAD ---
PORTABLE CHEST: COMPARISON: Prior day's study. HISTORY: Respiratory distress. FINDINGS: The patient is rotated on this exam. Endotracheal and NG Tubes are in satisfactory position. Chroni c lung changes are again noted. Slight increased density in the right base may be related to some in creasing effusion or infiltrate but could just be related to the rotation. Followup film would be re commended. IMPRESSION: Rotated exam. Suggestion of some increased density in the right base is compared to the prior study, but some of this may just be related to the rotation. POS: [facility]
[2018-08-20] MEDS: Metoprolol Tartrate 25 MG TAB PO SCH ×2 (09:45→21:21)
[2018-08-20] MEDS ORDERED: Lorazepam 2 MG/ML VIAL ONE (09:52)
[2018-08-20] MEDS: Simvastatin 40 MG TAB PO SCH (09:55)
[2018-08-20] MEDS: Pantoprazole 40 MG GRANULES PACKET PO SCH (09:55)
[2018-08-20] MEDS ORDERED: Ventilator Sedation Protocol 1 EACH FS ONE (09:59)
[2018-08-20] MEDS ORDERED: fentaNYL Citrate/PF 2,000 MCG in Sodium Chloride 0.9% 60 ML IV SCH (10:28)
[2018-08-20] MEDS ORDERED: Propofol BOLUS 1,000 MG/100 ML VIAL IV PRN (10:28)
[2018-08-20] MEDS ORDERED: Fentanyl BOLUS 250 ML IVPB PRN (10:28)
--- NOTE | 2018-08-20 10:47 | PRG ---
DATE OF SERVICE: 08/20/2018 Mr. Fernandes is still intermittently dyssynchronous with ventilation. He is not having any suprave ntricular arrhythmias. PHYSICAL EXAMINATION: VITAL SIGNS: His heart rates in the 80s, blood pressure 159/67, respiratory rates in the 20s when he is calm, high 30s when he is agitated. Intake and output is negative 179 mL. LUNGS: His lungs are clear. HEART: Regular rhythm. ABDOMEN: Abdomen is soft. Chest radiographs suggest some mucous plugging in his right lower lung field with mediastinal shift t o the right. IMPRESSION: 1. Respiratory failure associated with emergent laparotomy for a bleeding duodenal ulcer. 2. Weakness and deconditioning. 3. Chronic obstructive pulmonary disease, suspected. 4. Heavy tobacco use leading up to this admission. 5. Inactivity leading up to this admission. 6. Chronic back pain with significant nonsteroidal use prior to admission. PLAN: Tracheostomy today when Dr. Pope can get him into the schedule. I met with family and answer ed all their questions. Hopefully, we can start weaning from mechanical ventilation with tracheostom y. Stop the Versed drip and Precedex as this does not consistently keep him comfortable. Will go ba ck to Ativan and if we have to, propofol and fentanyl. Critical care time 30 minutes.
[2018-08-20] MEDS: Propofol 1,000 MG/100 ML VIAL IV PRN ×2 (11:15→22:37)
[2018-08-20] MEDS ORDERED: Bupivacaine HCl 0.5%/Epinephrine 1:200,000/PF 30 ml Vial ONE (11:44)
[2018-08-20] MEDS ORDERED: Midazolam HCl 2 mg/2 ml Vial ONE (11:45)
[2018-08-20] MEDS ORDERED: Fentanyl 100 MCG/2 ML VIAL ONE (11:45)
[2018-08-20] MEDS ORDERED: HYDROmorphone 2 MG/ML VIAL ONE (11:45)
--- NOTE | 2018-08-20 13:35 | OP ---
PREOPERATIVE DIAGNOSIS: Failure to wean from ventilator. SURGEON: Isael Pope M.D. PROCEDURE PERFORMED: Tracheostomy placement. INDICATIONS: This is a 68-year-old male who has underlying pulmonary disease, had emergency surgery for bleeding ulcer, unable to wean from ventilator. FINDINGS: Trachea was deviated to the right and an #8 Shiley cuffed tube was placed. DESCRIPTION OF PROCEDURE: After informed consent was obtained, the patient was taken to the operatin g room, was already intubated, but given general anesthesia. He was placed in the reverse Trendelenb urg position. His neck was prepped and draped in usual fashion. Local anesthesia was infiltrated gonzalez bcutaneously and deep with 0.5% Marcaine. A transverse incision performed. The subcu divided sharpl y. The platysma was divided. The strap muscles divided in the midline, retracted to expose the trac hea. Two stay sutures of 2-0 Prolene were placed on either side of midline. Midline was incised wit h an 11 blade. The trachea was spread and the endotracheal tube visualized. Under direct vision, th e endotracheal tube was removed and the #8 Shiley cuffed tube was inserted under direct vision. The balloon was inflated. The inner cannula attached and connected to the ventilator, good return of CO2 . There was slight ooze, so a Surgicel was packed around the tube. A tracheal collar was placed daina und his neck, connected to the tracheostomy. The sutures were tacked down to the skin with a small T egaderm. Patient tolerated the procedure well and was transferred to ICU in serious, but stable cond ition.
[2018-08-20] MEDS: Lorazepam 2 MG/ML VIAL SLOW IVP PRN ×2 (15:43)
--- NOTE | 2018-08-20 16:56 | PDOC.PN ---
- Subjective Encounter Start Date: 08/20/18 Encounter Start Time: 10:00 Subjective: pt intubated going for trach - Objective Resuscitation Status: Resuscitation Status FULL:Full Resuscitation Vital Signs & Weight: Vital Signs (12 hours) Temp Pulse Resp BP Pulse Ox 08/20/18 14:33 86 86/36 L 08/20/18 14:32 85 17 96 08/20/18 14:00 100.8 F H 22 H 08/20/18 12:00 22 H 08/20/18 11:06 84 138/53 L 08/20/18 11:05 85 21 H 98 08/20/18 10:00 22 H 08/20/18 08:00 100 F H 30 H 97 08/20/18 07:28 85 159/67 H 08/20/18 07:25 84 25 H 100 08/20/18 06:00 20 08/20/18 05:00 98.5 F Weight Admit Weight 168 lb 11.199 oz Weight 162 lb 4.163 oz Most Recent Monitor Data Heart Rate from ECG 91 NIBP 86/36 NIBP BP-Mean 62 Respiration from ECG 18 SpO2 99 I&O: 08/19/18 08/20/18 08/21/18 06:59 06:59 06:59 Intake Total 3125.7 2501 186.7 Output Total 3880 2680 680 Balance -754.3 -179 -493.3 Result Diagrams: 08/20/18 05:00 08/20/18 05:00 Phys Exam - Physical Examination Neck: no nodes, no JVD, supple, full ROM Respiratory: no wheezing, no rales, no rhonchi, wheezing present, clear to auscultation bilateral Cardiovascular: RRR, no significant murmur, no rub, gallop, irregular Gastrointestinal: soft, no distention, positive bowel sounds mid abd josey Dx/Plan (1) Acute respiratory failure Code(s): J96.00 - ACUTE RESPIRATORY FAILURE, UNSP W HYPOXIA OR HYPERCAPNIA Status: Acute (2) Duodenal ulcer Status: Acute Comment: s/p surgery, continue PPI. (3) GI bleed Code(s): K92.2 - GASTROINTESTINAL HEMORRHAGE, UNSPECIFIED Status: Acute Comment: on IV PPI for duodenal ulcer. Pt had surgery, currently on ventilator in CCU - Plan s/p pyloroplasty going for trach today -: hh stable -: family updated at bedside * . Review of Systems - Review of Systems Other: unable to obtain - Medications/Allergies Allergies/Adverse Reactions: Allergies Allergy/AdvReac Type Severity Reaction Status Date / Time Penicillins Allergy Rash Verified 08/11/18 04:01 Medications: Current Medications Albuterol/Ipratropium (Duoneb) 3 ml NEB [id number] [facility] Last Admin: 08/20/18 14:32 Dose: 3 ml Albuterol/Ipratropium (Duoneb) 3 ml NEB PRN PRN PRN Reason: Dyspnea/Wheezing/SOB Lipase/Protease/Amylase (Madeline Issa [id number]) 1 cap FS .PER PROTOCOL PRN PRN Reason: TUBE OCCLUSION PROTOCOL Diltiazem HCl (Cardizem) 30 mg PO ACHS [facility] Last Admin: 08/20/18 12:13 Dose: Not Given Fosinopril Sodium (Monopril) 40 mg PO DAILY [facility] Last Admin: 08/20/18 10:35 Dose: Not Given Haloperidol Lactate (Haldol) 10 mg IM Q8HR [facility] Last Admin: 08/20/18 14:58 Dose: 10 mg Piperacillin Sod/Tazobactam (Sod 3.375 gm/ Sodium Chloride) 100 mls @ 200 mls/ hr IVPB 0300,0900,1500,2100 [facility] Last Admin: 08/20/18 14:58 Dose: 100 mls Potassium Chloride 40 meq/ (Sodium Chloride) 270 mls @ 135 mls/hr IVPB ASDIR PRN PRN Reason: FOR SERUM K+ 2.5 - 3.5 Last Admin: 08/13/18 14:33 Dose: 270 mls Potassium Chloride 40 meq/ (Device) 100 mls @ 50 mls/hr IVPB ASDIR PRN PRN Reason: FOR SERUM K+ 2.5 - 3.5 Magnesium Sulfate 1 gm/ Sodium (Chloride) 102 mls @ 102 mls/hr IV PRN PRN PRN Reason: MAG LEVEL 1.4 - 2.0 Potassium Phosphate 9 mmol/ (Sodium Chloride) 103 mls @ 25.75 mls/hr IVPB ASDIR PRN PRN Reason: Phosphate 1.0-1.8 Potassium Phosphate 12 mmol/ (Sodium Chloride) 254 mls @ 63.5 mls/hr IV ASDIR PRN PRN Reason: Serum phosphate 0.5-0.9 Potassium Phosphate 15 mmol/ (Sodium Chloride) 255 mls @ 63.75 mls/hr IV ASDIR PRN PRN Reason: Serum Phos < 0.5 Magnesium Sulfate 2 gm/ Sodium (Chloride) 104 mls @ 100 mls/hr IVPB ASDIR [facility] Last Admin: 08/11/18 19:40 Dose: 104 mls Sodium Chloride (1/2 Normal Saline) 1,000 mls @ 0 mls/hr IV .Q0M [facility] Last Admin: 08/18/18 03:39 Dose: 1,000 mls Fentanyl Citrate 2,000 mcg/ (Sodium Chloride) 100 mls @ 0 mls/hr IV INF [facility]; Protocol Stop: 09/19/18 10:28 Fentanyl Citrate (Fentanyl Bolus) 250 mls @ 0 mls/hr IVPB PRN PRN PRN Reason: Breakthrough pain/agitation Stop: 09/19/18 10:28 Labetalol HCl (Normodyne) 20 mg SLOW IVP Q10MIN PRN PRN Reason: Hypertension Last Admin: 08/15/18 05:42 Dose: 20 mg Lorazepam (Ativan) 2 mg SLOW IVP Q1H PRN PRN Reason: Anxiety/Agitation Magnesium Oxide (Magnesium Oxide) 400 mg PO BIDPRN PRN PRN Reason: FOR SERUM MAG 1.4 - 2.0 Magnesium Oxide (Magnesium Oxide) 800 mg PO PRN PRN PRN Reason: FOR SERUM MAG < 1.4 Methylprednisolone Sodium Succinate (Solu-Medrol) 20 mg IVP DAILY [facility] Last Admin: 08/20/18 09:50 Dose: 20 mg Metoprolol Tartrate (Lopressor) 25 mg PO BID [facility] Last Admin: 08/20/18 09:45 Dose: Not Given Miscellaneous Medication (Phos-Nak) 1 pkt PO TIDPRN PRN PRN Reason: FOR PHOS LEVEL 1.0 - 1.8 Miscellaneous Medication (Phos-Nak) 2 pkt PO TIDPRN PRN PRN Reason: FOR PHOS LEVEL 0.5 - 1.0 Morphine Sulfate (Morphine) 2 mg SLOW IVP Q1H PRN PRN Reason: BREAKTHROUGH PAIN/AGITATION Last Admin: 08/19/18 09:31 Dose: 2 mg Morphine Sulfate (Morphine) 4 mg SLOW IVP Q1H PRN PRN Reason: Moderate Pain (4-6) Last Admin: 08/19/18 02:32 Dose: 4 mg Discontinue Previous Narcotic Pain Medications And Benzodiazepines 1 each FS .ONE [facility] Stop: 09/10/18 15:36 Ccu Electrolyte (Replacement Protocol) 0 each FS PRN PRN PRN Reason: FOR ELECTROLYTE REPLACEMENT Ondansetron HCl (Zofran) 4 mg IVP Q6H PRN PRN Reason: Nausea/Vomiting Last Admin: 08/11/18 03:33 Dose: 4 mg Pantoprazole Sodium (Protonix) 40 mg PO DAILY [facility] Last Admin: 08/20/18 09:55 Dose: Not Given Potassium Chloride (K-Dur) 40 meq PO ASDIR PRN PRN Reason: FOR SERUM K+ 2.5 - 3.5 Potassium Chloride (Klor-Con) 40 meq PER TUBE ASDIR PRN PRN Reason: FOR SERUM K+ 2.5-3.5 Promethazine HCl (Phenergan) 12.5 mg IM/IV Q4H PRN PRN Reason: Nausea/Vomiting Propofol (Diprivan) 1,000 mg IV INF PRN; Protocol PRN Reason: TO ACHIEVE GOAL RASS Stop: 09/19/18 10:28 Last Admin: 08/20/18 11:15 Dose: 1,000 mg Propofol (Diprivan Bolus) 20 mg IV Q5MIN PRN PRN Reason: BREAKTHROUGH AGITATION Stop: 09/19/18 10:28 Simvastatin (Zocor) 40 mg PO DAILY [facility] Last Admin: 08/20/18 09:55 Dose: Not Given Sodium Bicarbonate (Bicarbonate, Sodium) 650 mg PER TUBE .PER PROTOCOL PRN PRN Reason: ENTERAL TUBE OCCLUSION Sodium Chloride (Flush - Normal Saline) 10 ml IVF Q12HR [facility] Last Admin: 08/20/18 09:55 Dose: 10 ml Sodium Chloride (Flush - Normal Saline) 10 ml IVF PRN PRN PRN Reason: Saline Flush
[2018-08-21] MEDS: Piperacillin/Tazobactam 3.375 GM in Sodium Chloride 0.9% 100 ML IVPB SCH (03:57)
[2018-08-21 04:48] LABS: #Eosinphils 0.1 thou/uL (0.0-0.7); #Lymphocytes 0.8 thou/uL (1.20-3.40); #Monocytes 1.1 thou/uL (0.11-0.59); #Neutrophils 12.1 thou/uL (1.40-6.50); %Eosinophils 0.5 % (0.0-10.0); %Lymphocytes 5.6 % (21.0-51.0); %Monocytes 8.1 % (0.0-10.0); %Neutrophils 85.9 % (42.0-75.0); Hemoglobin 8.7 g/dL (14.0-18.0); Mean Corpuscular Hemoglobin 30.2 pg (27.0-31.0); Mean Corpuscular Volume 94.3 fL (78.0-98.0); Mean Platelet Volume 8.8 fL (7.4-10.4); Platelet Count 145 thou/uL (130-400); RBC Distribution Width 15.3 % (11.5-14.5); Red Blood Cell (RBC) Count 2.86 mill/uL (4.70-6.10)
[2018-08-21 05:17] LABS: Anion Gap 12 mmol/L (10-20); BUN (Urea Nitrogen) 30 mg/dL (8.4-25.7); Calc. Creatinine Clearance 97 mL/min (70-130); Calcium 8.3 mg/dL (7.8-10.44); Carbon Dioxide 28 mmol/L (23-31); Chloride 111 mmol/L (98-107); Estimated GFR-MDRD Greater than 90; Glucose 116 mg/dL (80-115); Sodium 148 mmol/L (136-145)
[2018-08-21 05:26] LABS: Potassium 2.9 mmol/L (3.5-5.1)
[2018-08-21 05:28] LABS: Band 4 % (5-11); Hemoglobin 8.6 g/dL (14.0-18.0); Lymphocytes 2 % (21-51); MDiff Complete? YES; Mean Corpuscular HGB CONC 32.2 g/dL (32.0-36.0); Mean Corpuscular Hemoglobin 30.3 pg (27.0-31.0); Mean Corpuscular Volume 94.1 fL (78.0-98.0); Mean Platelet Volume 9.2 fL (7.4-10.4); Monocytes 8 % (0-10); Neutrophil 86 % (42-75); Platelet Count 153 thou/uL (130-400); RBC Distribution Width 15.2 % (11.5-14.5); Red Blood Cell (RBC) Count 2.83 mill/uL (4.70-6.10); White Blood Cell (WBC) Count 14.1 thou/uL (4.8-10.8)
[2018-08-21] MEDS: Haloperidol Lactate 5 MG/ML VIAL IM SCH ×3 (06:27→21:48)
[2018-08-21 07:19] LABS: Actual Bicarbonate (HCO3a) 27.4 mEq/L (22-28); Base Excess (BEa) 4.7 mEq/L (-2.0 to +3.0); CO2 Tension 33.2 mmHg (35.0-45.0); Calcium, Ionized 1.11 mmol/L (1.12-1.30); Carboxyhemoglobin (COHb) 1.7 gm% (0.0-3.0); Hemoglobin (Hb) 9.3 g/dL (14.0-18.0); O2 Tension (PaO2) 68.8 mmHg (> 80.0); Potassium - ABG Lab 2.75 mmol/L (3.70-5.30); pH, Arterial 7.53 (7.35-7.45)
[2018-08-21 07:26] LABS: Puncture Site L.R.
[2018-08-21] MEDS: Simvastatin 40 MG TAB PO SCH (08:18)
[2018-08-21] MEDS: Pantoprazole 40 MG GRANULES PACKET PO SCH (08:19)
[2018-08-21] MEDS: Metoprolol Tartrate 25 MG TAB PO SCH ×2 (08:19→21:44)
[2018-08-21] MEDS ORDERED: Digoxin 0.5 MG/2 ML AMP SLOW IVP SCH ×2 (08:30→09:00)
--- NOTE | 2018-08-21 08:34 | RAD ---
PORTABLE CHEST: History: Respiratory distress. Comparison: Prior day's study. FINDINGS: Tracheostomy tube and NG tube remain in satisfactory position. Parenchymal lung changes are fairly si milar to the prior exam. There may be some improvement to some of the blunting to the right costophre kolton angle. I am not certain how much of this is just related to technique. IMPRESSION: Relatively stable exam. POS: [facility]
[2018-08-21] MEDS: Propofol 1,000 MG/100 ML VIAL IV PRN (09:09)
--- NOTE | 2018-08-21 11:26 | PDOC.CTH ---
Cardiology Progress Note - Subjective The pt seen and examined. S/p Trach placement on 08/20/18 and cont. mechanical vent with vent sedation. - Objective Vital Signs Temp Pulse Resp BP Pulse Ox 08/21/18 10:00 20 08/21/18 08:30 105 H 08/21/18 08:00 20 08/21/18 06:54 105 H 147/58 H 08/21/18 06:53 104 H 20 97 08/21/18 06:00 20 08/21/18 05:00 99.2 F 08/21/18 03:54 18 08/21/18 02:56 100 18 97 08/21/18 02:00 16 08/21/18 00:00 99.1 F 20 Admit Weight 168 lb 11.199 oz Weight 156 lb 8.451 oz 08/20/18 08/21/18 08/22/18 06:59 06:59 06:59 Intake Total 2501 845.4 160 Output Total 2680 3580 240 Balance -179 -2734.6 -80 - Physical Examination Neck: carotid US brisk Lungs: other: (diminished at bases) Heart: RRR Abdomen: soft Extremities: other: (generalized edema) - Telemetry Telemetry Rhythm: SR 90s - Labs Result Diagrams: 08/21/18 04:20 08/21/18 04:20 Troponin/CKMB CK-MB (CK-2) 13.9 ng/mL (0-6.6) H* 08/11/18 16:29 Troponin I 0.083 ng/mL (< 0.028) H 08/12/18 12:13 - Assessment/Plan 1. Afib/AT - intermittent Afib/AT since last night. Start Digoxin. On Diltiazem 30mg QID and Metoprolol 25mg BID. Possible change Diltiazem from PO to IV if he sustains in Afib/AT. EP consult for possible SVT ablation. 2. GI bleed 2/2 Duodenal ulcer - s/p Ex lap pyloroplasty on 08/12/18. On Protonix IV. 3. HTN - stable with current medication. Cont. to monitor 4. Hyperlipidemia - will resume Simvastatin when the pt is stable 5. DM type 2 - managed by PCP 6. S/p Trach placement on 08/20/18 MAR reviewed * Echo on 08/12/18 showed EF >60%, trace TR and MR. Review of Systems - Review of Systems Constitutional: reports: see HPI
[2018-08-21] MEDS: Lorazepam 2 MG/ML VIAL SLOW IVP PRN (11:52)
[2018-08-21 14:11] LABS: Potassium 3.1 mmol/L (3.5-5.1)
[2018-08-21] MEDS: Digoxin 0.5 MG/2 ML AMP SLOW IVP SCH ×2 (14:28→21:43)
[2018-08-21] MEDS: Lorazepam 2 MG/ML VIAL SLOW IVP SCH ×3 (14:29→21:49)
[2018-08-21] MEDS: Potassium Chloride 40 MEQ in Sodium Chloride 0.9% 250 ML 250 ML IVPB PRN (15:45)
--- NOTE | 2018-08-21 17:52 | PDOC.PN ---
- Subjective Encounter Start Date: 08/21/18 Encounter Start Time: 08:40 Pt seen for followup re: GI bleed. Able to answer questions by nodding or shaking head. Denies chest pain, shortness of breath, fevers, chills, nausea, abdo pain or back pain. - Objective Resuscitation Status: Resuscitation Status DNR:Do Not Resuscitate MAR Reviewed: Yes Vital Signs & Weight: Vital Signs (12 hours) Temp Pulse Resp BP Pulse Ox 08/21/18 16:00 99.2 F 20 08/21/18 14:50 96 144/52 H 08/21/18 14:49 92 19 99 08/21/18 14:28 93 08/21/18 14:00 20 08/21/18 12:00 99 F 20 08/21/18 11:25 93 135/52 L 08/21/18 11:24 91 27 H 96 08/21/18 10:00 20 08/21/18 08:30 105 H 08/21/18 08:00 20 99 08/21/18 06:54 105 H 147/58 H 08/21/18 06:53 104 H 20 97 08/21/18 06:00 20 Weight Admit Weight 168 lb 11.199 oz Weight 156 lb 8.451 oz Most Recent Monitor Data Heart Rate from ECG 91 NIBP 140/46 NIBP BP-Mean 59 Respiration from ECG 16 SpO2 99 I&O: 08/20/18 08/21/18 08/22/18 06:59 06:59 06:59 Intake Total 2501 845.4 660 Output Total 2680 3580 680 Balance -179 -2734.6 -20 Result Diagrams: 08/21/18 04:20 08/21/18 13:29 EKG Reviewed by me: Yes (Runs of a. fib/atrial tachycardia) Phys Exam - Physical Examination HEENT: moist MMs, sclera anicteric tracheostomy Respiratory: clear to auscultation bilateral Cardiovascular: RRR Gastrointestinal: soft Neurological: moves all 4 limbs Psychiatric: normal affect Dx/Plan (1) GI bleed Code(s): K92.2 - GASTROINTESTINAL HEMORRHAGE, UNSPECIFIED Status: Acute Comment: on IV PPI for duodenal ulcer. s/p surgery, was intubated, now s/p trach. (2) Atrial tachycardia Code(s): I47.1 - SUPRAVENTRICULAR TACHYCARDIA Status: Acute Comment: started on digoxin (3) Duodenal ulcer Status: Acute Comment: continue PPI. (4) HTN (hypertension) Code(s): I10 - ESSENTIAL (PRIMARY) HYPERTENSION Status: Chronic Comment: controlled - Plan * . Review of Systems - Medications/Allergies Allergies/Adverse Reactions: Allergies Allergy/AdvReac Type Severity Reaction Status Date / Time Penicillins Allergy Rash Verified 08/11/18 04:01 Medications: Current Medications Albuterol/Ipratropium (Duoneb) 3 ml NEB [id number] Last Admin: 08/21/18 14:49 Dose: 3 ml Albuterol/Ipratropium (Duoneb) 3 ml NEB PRN PRN PRN Reason: Dyspnea/Wheezing/SOB Lipase/Protease/Amylase (Madeline Issa [id number]) 1 cap FS .PER PROTOCOL PRN PRN Reason: TUBE OCCLUSION PROTOCOL Digoxin (Lanoxin) 0.25 mg SLOW IVP 1500,2100 [facility] Stop: 08/21/18 23:59 Last Admin: 08/21/18 14:28 Dose: 0.25 mg Digoxin (Lanoxin) 0.125 mg PO QAM LULÚ Diltiazem HCl (Cardizem) 30 mg PO ACHS [facility] Last Admin: 08/21/18 11:55 Dose: 30 mg Fosinopril Sodium (Monopril) 40 mg PO DAILY [facility] Last Admin: 08/21/18 09:10 Dose: Not Given Haloperidol Lactate (Haldol) 10 mg IM Q4H [facility] Potassium Chloride 40 meq/ (Sodium Chloride) 270 mls @ 135 mls/hr IVPB ASDIR PRN PRN Reason: FOR SERUM K+ 2.5 - 3.5 Last Admin: 08/21/18 15:45 Dose: 270 mls Potassium Chloride 40 meq/ (Device) 100 mls @ 50 mls/hr IVPB ASDIR PRN PRN Reason: FOR SERUM K+ 2.5 - 3.5 Magnesium Sulfate 1 gm/ Sodium (Chloride) 102 mls @ 102 mls/hr IV PRN PRN PRN Reason: MAG LEVEL 1.4 - 2.0 Potassium Phosphate 9 mmol/ (Sodium Chloride) 103 mls @ 25.75 mls/hr IVPB ASDIR PRN PRN Reason: Phosphate 1.0-1.8 Potassium Phosphate 12 mmol/ (Sodium Chloride) 254 mls @ 63.5 mls/hr IV ASDIR PRN PRN Reason: Serum phosphate 0.5-0.9 Potassium Phosphate 15 mmol/ (Sodium Chloride) 255 mls @ 63.75 mls/hr IV ASDIR PRN PRN Reason: Serum Phos < 0.5 Magnesium Sulfate 2 gm/ Sodium (Chloride) 104 mls @ 100 mls/hr IVPB ASDIR [facility] Last Admin: 08/11/18 19:40 Dose: 104 mls Sodium Chloride (1/2 Normal Saline) 1,000 mls @ 0 mls/hr IV .Q0M [facility] Last Admin: 08/18/18 03:39 Dose: 1,000 mls Fentanyl Citrate 2,000 mcg/ (Sodium Chloride) 100 mls @ 0 mls/hr IV INF [facility]; Protocol Stop: 09/19/18 10:28 Fentanyl Citrate (Fentanyl Bolus) 250 mls @ 0 mls/hr IVPB PRN PRN PRN Reason: Breakthrough pain/agitation Stop: 09/19/18 10:28 Labetalol HCl (Normodyne) 20 mg SLOW IVP Q10MIN PRN PRN Reason: Hypertension Last Admin: 08/15/18 05:42 Dose: 20 mg Lorazepam (Ativan) 2 mg SLOW IVP Q1H PRN PRN Reason: Anxiety/Agitation Last Admin: 08/21/18 11:52 Dose: 2 mg Lorazepam (Ativan) 1 mg SLOW IVP Q4H [facility] Last Admin: 08/21/18 14:29 Dose: 1 mg Magnesium Oxide (Magnesium Oxide) 400 mg PO BIDPRN PRN PRN Reason: FOR SERUM MAG 1.4 - 2.0 Magnesium Oxide (Magnesium Oxide) 800 mg PO PRN PRN PRN Reason: FOR SERUM MAG < 1.4 Methylprednisolone Sodium Succinate (Solu-Medrol) 20 mg IVP DAILY [facility] Last Admin: 08/21/18 08:20 Dose: 20 mg Metoprolol Tartrate (Lopressor) 25 mg PO BID [facility] Last Admin: 08/21/18 08:19 Dose: 25 mg Miscellaneous Medication (Phos-Nak) 1 pkt PO TIDPRN PRN PRN Reason: FOR PHOS LEVEL 1.0 - 1.8 Miscellaneous Medication (Phos-Nak) 2 pkt PO TIDPRN PRN PRN Reason: FOR PHOS LEVEL 0.5 - 1.0 Morphine Sulfate (Morphine) 2 mg SLOW IVP Q1H PRN PRN Reason: BREAKTHROUGH PAIN/AGITATION Last Admin: 08/19/18 09:31 Dose: 2 mg Morphine Sulfate (Morphine) 4 mg SLOW IVP Q1H PRN PRN Reason: Moderate Pain (4-6) Last Admin: 08/19/18 02:32 Dose: 4 mg Discontinue Previous Narcotic Pain Medications And Benzodiazepines 1 each FS .ONE [facility] Stop: 09/10/18 15:36 Ccu Electrolyte (Replacement Protocol) 0 each FS PRN PRN PRN Reason: FOR ELECTROLYTE REPLACEMENT Ondansetron HCl (Zofran) 4 mg IVP Q6H PRN PRN Reason: Nausea/Vomiting Last Admin: 08/11/18 03:33 Dose: 4 mg Pantoprazole Sodium (Protonix) 40 mg PO DAILY [facility] Last Admin: 08/21/18 08:19 Dose: 40 mg Potassium Chloride (K-Dur) 40 meq PO ASDIR PRN PRN Reason: FOR SERUM K+ 2.5 - 3.5 Potassium Chloride (Klor-Con) 40 meq PER TUBE ASDIR PRN PRN Reason: FOR SERUM K+ 2.5-3.5 Promethazine HCl (Phenergan) 12.5 mg IM/IV Q4H PRN PRN Reason: Nausea/Vomiting Propofol (Diprivan) 1,000 mg IV INF PRN; Protocol PRN Reason: TO ACHIEVE GOAL RASS Stop: 09/19/18 10:28 Last Admin: 08/21/18 09:09 Dose: 1,000 mg Propofol (Diprivan Bolus) 20 mg IV Q5MIN PRN PRN Reason: BREAKTHROUGH AGITATION Stop: 09/19/18 10:28 Simvastatin (Zocor) 40 mg PO DAILY [facility] Last Admin: 08/21/18 08:18 Dose: 40 mg Sodium Bicarbonate (Bicarbonate, Sodium) 650 mg PER TUBE .PER PROTOCOL PRN PRN Reason: ENTERAL TUBE OCCLUSION Sodium Chloride (Flush - Normal Saline) 10 ml IVF Q12HR [facility] Last Admin: 08/21/18 09:10 Dose: 10 ml Sodium Chloride (Flush - Normal Saline) 10 ml IVF PRN PRN PRN Reason: Saline Flush
--- NOTE | 2018-08-21 18:57 | PRG ---
DATE OF SERVICE: 08/21/2018 SUBJECTIVE: Mr. Fernandes still intermittently dyssynchronous with ventilation tube. We have readjusted medications and put him back on more Haldol with Ativan. OBJECTIVE: VITAL SIGNS: Blood pressure this afternoon is 140/46, heart rate is 91, respiratory rate 16, oximetry is 99. Intake and output is negative 2734. LUNGS: Remarkable for coarse equal breath sounds. HEART: Regular rhythm. No gallops heard. ABDOMEN: Soft without guarding. EXTREMITIES: Unchanged. He moves all 4 extremities equally. LABORATORY DATA: White count 14.1, platelets 153. Sodium 148, potassium 2.9, chloride 111, bicarbonate 28, BUN 30, creatinine 0.76. IMPRESSION: 1. Respiratory failure after laparotomy for bleeding duodenal ulcer. 2. Underlying obstructive lung disease, it is probably severe. 3. Deconditioning. PLAN: Continue daily adjustment of sedative drugs with decreases in ventilatory support. His family decided to make him a do not resuscitate patient today, although I was not involved with this discussion. I do think it is reasonable not to go back to full ventilatory support. If we can get it keeping moving forward, then we will continue aggressively, but I do think the family wants long-term acute care or anything like that. At this point in time , he is making slow progress. Hopefully, he will make progress over the next few days with regards to T-collar trials. Critical care time was 30 minutes. [facility]
[2018-08-22] MEDS: Lorazepam 2 MG/ML VIAL SLOW IVP SCH ×6 (02:19→21:55)
[2018-08-22] MEDS: Haloperidol Lactate 5 MG/ML VIAL IM SCH ×4 (02:20→13:35)
[2018-08-22 05:03] LABS: Anion Gap 8 mmol/L (10-20); BUN (Urea Nitrogen) 30 mg/dL (8.4-25.7); Calc. Creatinine Clearance 97 mL/min (70-130); Calcium 8.7 mg/dL (7.8-10.44); Carbon Dioxide 28 mmol/L (23-31); Chloride 120 mmol/L (98-107); Estimated GFR-MDRD Greater than 90; Glucose 131 mg/dL (80-115); Potassium 3.7 mmol/L (3.5-5.1); Sodium 152 mmol/L (136-145)
[2018-08-22 05:09] LABS: Band 9 % (5-11); Hemoglobin 8.3 g/dL (14.0-18.0); Lymphocytes 6 % (21-51); MDiff Complete? YES; Mean Corpuscular Hemoglobin 30.4 pg (27.0-31.0); Mean Corpuscular Volume 95.2 fL (78.0-98.0); Mean Platelet Volume 9.1 fL (7.4-10.4); Monocytes 8 % (0-10); Neutrophil 77 % (42-75); PLT Morphology Comment Appears Adequate; Platelet Count 185 thou/uL (130-400); RBC Distribution Width 15.2 % (11.5-14.5); Red Blood Cell (RBC) Count 2.71 mill/uL (4.70-6.10); White Blood Cell (WBC) Count 9.8 thou/uL (4.8-10.8)
[2018-08-22] MEDS: Propofol 1,000 MG/100 ML VIAL IV PRN ×2 (05:59→18:46)
[2018-08-22 06:34] LABS: Actual Bicarbonate (HCO3a) 26.5 mEq/L (22-28); Base Excess (BEa) 3.4 mEq/L (-2.0 to +3.0); CO2 Tension 34.1 mmHg (35.0-45.0); Calcium, Ionized 1.15 mmol/L (1.12-1.30); Carboxyhemoglobin (COHb) 1.4 gm% (0.0-3.0); Hemoglobin (Hb) 8.5 g/dL (14.0-18.0); Potassium - ABG Lab 3.68 mmol/L (3.70-5.30); pH, Arterial 7.51 (7.35-7.45)
[2018-08-22 06:35] LABS: ALV-art Gradient 157.575 (0-20); Puncture Site RRA
[2018-08-22] MEDS: Digoxin 0.125 MG TAB PO SCH (09:01)
[2018-08-22] MEDS: Metoprolol Tartrate 25 MG TAB PO SCH ×2 (09:02→20:25)
[2018-08-22] MEDS: Pantoprazole 40 MG GRANULES PACKET PO SCH ×2 (09:02→09:32)
[2018-08-22] MEDS: Simvastatin 40 MG TAB PO SCH (09:02)
--- NOTE | 2018-08-22 14:15 | PDOC.PN ---
- Subjective Encounter Start Date: 08/22/18 Encounter Start Time: 09:00 Pt seen for followup re: GI bleed. Sedated, not answering questions, could not complete ROS. - Objective Resuscitation Status: Resuscitation Status DNR:Do Not Resuscitate MAR Reviewed: Yes Vital Signs & Weight: Vital Signs (12 hours) Temp Pulse Resp BP Pulse Ox 08/22/18 12:00 99.1 F 08/22/18 10:45 86 110/51 L 08/22/18 09:06 103 H 08/22/18 09:01 107 H 08/22/18 08:00 99.2 F 19 99 08/22/18 07:06 103 H 159/54 H 08/22/18 06:00 16 08/22/18 04:00 16 08/22/18 02:27 96 08/22/18 02:26 97 17 100 Weight Admit Weight 168 lb 11.199 oz Weight 156 lb 12.8 oz Most Recent Monitor Data Heart Rate from ECG 93 NIBP 134/54 NIBP BP-Mean 97 Respiration from ECG 19 SpO2 100 I&O: 08/21/18 08/22/18 08/23/18 06:59 06:59 06:59 Intake Total 845.4 1969.2 120 Output Total 3580 1400 510 Balance -2734.6 569.2 -390 Result Diagrams: 08/22/18 04:03 08/22/18 04:03 EKG Reviewed by me: Yes (Tele: sinus tachycardia) Phys Exam - Physical Examination Constitutional: NAD HEENT: moist MMs Tracheostomy Respiratory: clear to auscultation bilateral Cardiovascular: RRR Gastrointestinal: soft No spontaneous limb movements Deviation from normal: Unable to assess Dx/Plan (1) GI bleed Code(s): K92.2 - GASTROINTESTINAL HEMORRHAGE, UNSPECIFIED Status: Acute Comment: continue IV PPI for duodenal ulcer (2) Atrial tachycardia Code(s): I47.1 - SUPRAVENTRICULAR TACHYCARDIA Status: Acute Comment: continue digoxin (3) Duodenal ulcer Status: Acute Comment: continue PPI. (4) HTN (hypertension) Code(s): I10 - ESSENTIAL (PRIMARY) HYPERTENSION Status: Chronic Comment: controlled - Plan * . sedation increased yesterday, pt not agitated Review of Systems - Medications/Allergies Allergies/Adverse Reactions: Allergies Allergy/AdvReac Type Severity Reaction Status Date / Time Penicillins Allergy Rash Verified 08/11/18 04:01 Medications: Current Medications Albuterol/Ipratropium (Duoneb) 3 ml NEB [id number] [facility] Last Admin: 08/22/18 10:45 Dose: 3 ml Albuterol/Ipratropium (Duoneb) 3 ml NEB PRN PRN PRN Reason: Dyspnea/Wheezing/SOB Lipase/Protease/Amylase (Madeline Issa [id number]) 1 cap FS .PER PROTOCOL PRN PRN Reason: TUBE OCCLUSION PROTOCOL Digoxin (Lanoxin) 0.125 mg PO QAM [facility] Last Admin: 08/22/18 09:01 Dose: 0.125 mg Diltiazem HCl (Cardizem) 30 mg PO ACHS [facility] Last Admin: 08/22/18 09:02 Dose: 30 mg Fosinopril Sodium (Monopril) 40 mg PO DAILY [facility] Last Admin: 08/22/18 09:02 Dose: Not Given Haloperidol Lactate (Haldol) 10 mg IM Q4H [facility] Last Admin: 08/22/18 09:05 Dose: 10 mg Potassium Chloride 40 meq/ (Sodium Chloride) 270 mls @ 135 mls/hr IVPB ASDIR PRN PRN Reason: FOR SERUM K+ 2.5 - 3.5 Last Admin: 08/21/18 15:45 Dose: 270 mls Potassium Chloride 40 meq/ (Device) 100 mls @ 50 mls/hr IVPB ASDIR PRN PRN Reason: FOR SERUM K+ 2.5 - 3.5 Magnesium Sulfate 1 gm/ Sodium (Chloride) 102 mls @ 102 mls/hr IV PRN PRN PRN Reason: MAG LEVEL 1.4 - 2.0 Potassium Phosphate 9 mmol/ (Sodium Chloride) 103 mls @ 25.75 mls/hr IVPB ASDIR PRN PRN Reason: Phosphate 1.0-1.8 Potassium Phosphate 12 mmol/ (Sodium Chloride) 254 mls @ 63.5 mls/hr IV ASDIR PRN PRN Reason: Serum phosphate 0.5-0.9 Potassium Phosphate 15 mmol/ (Sodium Chloride) 255 mls @ 63.75 mls/hr IV ASDIR PRN PRN Reason: Serum Phos < 0.5 Magnesium Sulfate 2 gm/ Sodium (Chloride) 104 mls @ 100 mls/hr IVPB ASDIR [facility] Last Admin: 08/11/18 19:40 Dose: 104 mls Sodium Chloride (1/2 Normal Saline) 1,000 mls @ 0 mls/hr IV .Q0M [facility] Last Admin: 08/18/18 03:39 Dose: 1,000 mls Fentanyl Citrate 2,000 mcg/ (Sodium Chloride) 100 mls @ 0 mls/hr IV INF [facility]; Protocol Stop: 09/19/18 10:28 Fentanyl Citrate (Fentanyl Bolus) 250 mls @ 0 mls/hr IVPB PRN PRN PRN Reason: Breakthrough pain/agitation Stop: 09/19/18 10:28 Labetalol HCl (Normodyne) 20 mg SLOW IVP Q10MIN PRN PRN Reason: Hypertension Last Admin: 08/15/18 05:42 Dose: 20 mg Lorazepam (Ativan) 2 mg SLOW IVP Q1H PRN PRN Reason: Anxiety/Agitation Last Admin: 08/21/18 11:52 Dose: 2 mg Lorazepam (Ativan) 1 mg SLOW IVP Q4H [facility] Last Admin: 08/22/18 09:09 Dose: 1 mg Magnesium Oxide (Magnesium Oxide) 400 mg PO BIDPRN PRN PRN Reason: FOR SERUM MAG 1.4 - 2.0 Magnesium Oxide (Magnesium Oxide) 800 mg PO PRN PRN PRN Reason: FOR SERUM MAG < 1.4 Methylprednisolone Sodium Succinate (Solu-Medrol) 20 mg IVP DAILY [facility] Last Admin: 08/22/18 09:02 Dose: 20 mg Metoprolol Tartrate (Lopressor) 25 mg PO BID [facility] Last Admin: 08/22/18 09:02 Dose: 25 mg Miscellaneous Medication (Phos-Nak) 1 pkt PO TIDPRN PRN PRN Reason: FOR PHOS LEVEL 1.0 - 1.8 Miscellaneous Medication (Phos-Nak) 2 pkt PO TIDPRN PRN PRN Reason: FOR PHOS LEVEL 0.5 - 1.0 Morphine Sulfate (Morphine) 4 mg SLOW IVP Q1H PRN PRN Reason: Moderate Pain (4-6) Last Admin: 08/19/18 02:32 Dose: 4 mg Discontinue Previous Narcotic Pain Medications And Benzodiazepines 1 each FS .ONE [facility] Stop: 09/10/18 15:36 Ccu Electrolyte (Replacement Protocol) 0 each FS PRN PRN PRN Reason: FOR ELECTROLYTE REPLACEMENT Ondansetron HCl (Zofran) 4 mg IVP Q6H PRN PRN Reason: Nausea/Vomiting Last Admin: 08/11/18 03:33 Dose: 4 mg Pantoprazole Sodium (Protonix) 40 mg PO DAILY [facility] Last Admin: 08/22/18 09:02 Dose: 40 mg Potassium Chloride (K-Dur) 40 meq PO ASDIR PRN PRN Reason: FOR SERUM K+ 2.5 - 3.5 Potassium Chloride (Klor-Con) 40 meq PER TUBE ASDIR PRN PRN Reason: FOR SERUM K+ 2.5-3.5 Promethazine HCl (Phenergan) 12.5 mg IM/IV Q4H PRN PRN Reason: Nausea/Vomiting Propofol (Diprivan) 1,000 mg IV INF PRN; Protocol PRN Reason: TO ACHIEVE GOAL RASS Stop: 09/19/18 10:28 Last Admin: 08/22/18 05:59 Dose: 1,000 mg Propofol (Diprivan Bolus) 20 mg IV Q5MIN PRN PRN Reason: BREAKTHROUGH AGITATION Stop: 09/19/18 10:28 Simvastatin (Zocor) 40 mg PO DAILY [facility] Last Admin: 08/22/18 09:02 Dose: 40 mg Sodium Bicarbonate (Bicarbonate, Sodium) 650 mg PER TUBE .PER PROTOCOL PRN PRN Reason: ENTERAL TUBE OCCLUSION Sodium Chloride (Flush - Normal Saline) 10 ml IVF Q12HR [facility] Last Admin: 08/22/18 09:06 Dose: 10 ml Sodium Chloride (Flush - Normal Saline) 10 ml IVF PRN PRN PRN Reason: Saline Flush
[2018-08-22] MEDS: Dextrose 5% in Water 1,000 ML IV SCH (20:28)
--- NOTE | 2018-08-22 22:47 | PRG ---
DATE OF SERVICE: 08/22/2018 SUBJECTIVE: Ruiz Fernandes is still requiring sedation for ventilator management. We will continue to decrease his ventilatory support. OBJECTIVE: VITAL SIGNS: His heart rates in the 90s, blood pressure 121/46, respiratory rate 14. Intake and out put is positive 569 today. LUNGS: Clear anteriorly. CARDIOVASCULAR: Regular rhythm. ABDOMEN: Soft and nontender. He did have some brief runs of SVT earlier today. LABORATORY DATA: White count 9.8, hemoglobin 8.3, platelets 185,000. Sodium 152, potassium 3.7, chl oride 120, bicarbonate 28, BUN 30, creatinine 0.73. IMPRESSION AND PLAN: 1. Respiratory failure after oversew of duodenal ulcer. 2. Chronic obstructive pulmonary disease. 3. Deconditioning. 4. Schizophrenia. 5. Hyperchloremia, which will potentially create an acid base disorder that makes it more difficult to wean. At this time, he has a pure respiratory alkalosis with a pH of 7.51, CO2 of 34, PO2 of 85. Plan to give him some free water. Hopefully, we will be able to continue weaning from mechanical loi tilation. There is no family at bedside today. Critical care time was 30 minutes.
[2018-08-23] MEDS: Haloperidol Lactate 5 MG/ML VIAL IM SCH ×6 (00:33→23:35)
[2018-08-23] MEDS: Lorazepam 2 MG/ML VIAL SLOW IVP SCH ×6 (02:11→22:20)
[2018-08-23 04:52] LABS: Anion Gap 11 mmol/L (10-20); BUN (Urea Nitrogen) 40 mg/dL (8.4-25.7); Calc. Creatinine Clearance 90 mL/min (70-130); Calcium 8.2 mg/dL (7.8-10.44); Carbon Dioxide 25 mmol/L (23-31); Chloride 121 mmol/L (98-107); Estimated GFR-MDRD Greater than 90; Glucose 132 mg/dL (80-115); Potassium 3.7 mmol/L (3.5-5.1); Sodium 153 mmol/L (136-145)
[2018-08-23 05:37] LABS: Band 6 % (5-11); Hemoglobin 8.4 g/dL (14.0-18.0); Lymphocytes 12 % (21-51); MDiff Complete? YES; Mean Corpuscular HGB CONC 31.4 g/dL (32.0-36.0); Mean Corpuscular Hemoglobin 30.7 pg (27.0-31.0); Mean Corpuscular Volume 97.7 fL (78.0-98.0); Mean Platelet Volume 9.4 fL (7.4-10.4); Monocytes 10 % (0-10); Neutrophil 72 % (42-75); PLT Morphology Comment Appears Adequate; Platelet Count 222 thou/uL (130-400); RBC Distribution Width 15.6 % (11.5-14.5); Red Blood Cell (RBC) Count 2.73 mill/uL (4.70-6.10); White Blood Cell (WBC) Count 10.2 thou/uL (4.8-10.8)
[2018-08-23] MEDS: Propofol 1,000 MG/100 ML VIAL IV PRN ×2 (05:48→17:07)
[2018-08-23] MEDS: Digoxin 0.125 MG TAB PO SCH (09:04)
[2018-08-23] MEDS: Pantoprazole 40 MG GRANULES PACKET PO SCH (09:06)
[2018-08-23] MEDS: Simvastatin 40 MG TAB PO SCH (09:06)
[2018-08-23] MEDS: Metoprolol Tartrate 25 MG TAB PO SCH ×2 (09:06→20:18)
[2018-08-23] MEDS: Dextrose 5% in Water 1,000 ML IV SCH (10:00)
[2018-08-23 10:38] LABS: Bilirubin Negative (Negative); Blood, Urine Negative (Negative); Clarity CLEAR (Clear); Glucose, Urine (Dipstick) Negative (Negative); Leukocyte Negative (Negative); Nitrite Negative (Negative); Protein, Urine (Dipstick) Negative (Neg-Trace); Specific Gravity, Urine 1.021 (1.002-1.036)
[2018-08-23] MEDS: Lorazepam 2 MG/ML VIAL SLOW IVP PRN ×6 (12:17→20:58)
--- NOTE | 2018-08-23 12:44 | RAD ---
AP VIEW CHEST: Date: 08/23/18 HISTORY: Ventilator-dependent patient. FINDINGS: AP view of chest is obtained. Comparison is made to previous exam from 08/21/18. AP view of chest demonstrates EKG leads seen over the chest. Tracheostomy tube is in place. Pulmonary vascular congestion is noted. Bilateral diffuse interstitial markings seen compatible with interstitial fibrotic changes. There is a fractured right 7th rib. IMPRESSION: Tracheostomy tube in place. No evidence of acute intrathoracic abnormality is seen. No evidence of pn eumothorax seen. POS: [facility]
--- NOTE | 2018-08-23 14:17 | PDOC.PN ---
- Subjective Encounter Start Date: 08/23/18 Encounter Start Time: 10:40 Pt seen for followup re: GI bleed. Not answering questions. Could not complete ROS. - Objective Resuscitation Status: Resuscitation Status DNR:Do Not Resuscitate Vital Signs & Weight: Vital Signs (12 hours) Temp Pulse Resp BP Pulse Ox 08/23/18 13:07 99 08/23/18 12:00 99.4 F 41 H 08/23/18 10:28 91 124/46 L 08/23/18 10:00 17 08/23/18 09:04 111 H 08/23/18 08:59 109 H 146/54 H 08/23/18 08:00 100.6 F H 12 99 08/23/18 07:06 101 H 134/50 L 08/23/18 06:00 14 08/23/18 04:00 100.5 F H 16 08/23/18 02:26 92 08/23/18 02:25 88 12 100 Weight Admit Weight 168 lb 11.199 oz Weight 151 lb 7.321 oz Most Recent Monitor Data Heart Rate from ECG 105 NIBP 170/56 NIBP BP-Mean 77 Respiration from ECG 41 SpO2 99 I&O: 08/22/18 08/23/18 08/24/18 06:59 06:59 06:59 Intake Total 1969.2 1819 90 Output Total 1400 2055 510 Balance 569.2 -236 -420 Result Diagrams: 08/23/18 03:50 08/23/18 03:50 EKG Reviewed by me: Yes (Tele: NSR) Phys Exam - Physical Examination Lethargic Dry mucosae s/p trach Respiratory: clear to auscultation bilateral Cardiovascular: RRR Gastrointestinal: soft Neurological: moves all 4 limbs Deviation from normal: Unable to assess Dx/Plan (1) GI bleed Code(s): K92.2 - GASTROINTESTINAL HEMORRHAGE, UNSPECIFIED Status: Acute Comment: continue IV Protonix (2) Atrial tachycardia Code(s): I47.1 - SUPRAVENTRICULAR TACHYCARDIA Status: Acute Comment: pt is on scheduled digoxin (3) Duodenal ulcer Status: Acute Comment: continue Protonix (4) HTN (hypertension) Code(s): I10 - ESSENTIAL (PRIMARY) HYPERTENSION Status: Chronic Comment: controlled - Plan * . Pt is spiking fevers. Check chest x-ray, blood and urine cultures, urinalysis. Review of Systems - Medications/Allergies Allergies/Adverse Reactions: Allergies Allergy/AdvReac Type Severity Reaction Status Date / Time Penicillins Allergy Rash Verified 08/11/18 04:01 Medications: Current Medications Albuterol/Ipratropium (Duoneb) 3 ml NEB [id number] [facility] Last Admin: 08/23/18 10:28 Dose: 3 ml Albuterol/Ipratropium (Duoneb) 3 ml NEB PRN PRN PRN Reason: Dyspnea/Wheezing/SOB Lipase/Protease/Amylase (Madeline Issa [id number]) 1 cap FS .PER PROTOCOL PRN PRN Reason: TUBE OCCLUSION PROTOCOL Digoxin (Lanoxin) 0.125 mg PO QAM [facility] Last Admin: 08/23/18 09:04 Dose: 0.125 mg Diltiazem HCl (Cardizem) 30 mg PO ACHS [facility] Last Admin: 08/23/18 12:06 Dose: 30 mg Fosinopril Sodium (Monopril) 40 mg PO DAILY [facility] Last Admin: 08/23/18 09:05 Dose: 40 mg Haloperidol Lactate (Haldol) 10 mg IM Q6HR [facility] Last Admin: 08/23/18 12:06 Dose: 10 mg Potassium Chloride 40 meq/ (Sodium Chloride) 270 mls @ 135 mls/hr IVPB ASDIR PRN PRN Reason: FOR SERUM K+ 2.5 - 3.5 Last Admin: 08/21/18 15:45 Dose: 270 mls Potassium Chloride 40 meq/ (Device) 100 mls @ 50 mls/hr IVPB ASDIR PRN PRN Reason: FOR SERUM K+ 2.5 - 3.5 Magnesium Sulfate 1 gm/ Sodium (Chloride) 102 mls @ 102 mls/hr IV PRN PRN PRN Reason: MAG LEVEL 1.4 - 2.0 Potassium Phosphate 9 mmol/ (Sodium Chloride) 103 mls @ 25.75 mls/hr IVPB ASDIR PRN PRN Reason: Phosphate 1.0-1.8 Potassium Phosphate 12 mmol/ (Sodium Chloride) 254 mls @ 63.5 mls/hr IV ASDIR PRN PRN Reason: Serum phosphate 0.5-0.9 Potassium Phosphate 15 mmol/ (Sodium Chloride) 255 mls @ 63.75 mls/hr IV ASDIR PRN PRN Reason: Serum Phos < 0.5 Magnesium Sulfate 2 gm/ Sodium (Chloride) 104 mls @ 100 mls/hr IVPB ASDIR [facility] Last Admin: 08/11/18 19:40 Dose: 104 mls Fentanyl Citrate 2,000 mcg/ (Sodium Chloride) 100 mls @ 0 mls/hr IV INF [facility]; Protocol Stop: 09/19/18 10:28 Fentanyl Citrate (Fentanyl Bolus) 250 mls @ 0 mls/hr IVPB PRN PRN PRN Reason: Breakthrough pain/agitation Stop: 09/19/18 10:28 Dextrose/Water (D5w) 1,000 mls @ 75 mls/hr IV .[id number] [facility] Last Admin: 08/23/18 10:00 Dose: 1,000 mls Labetalol HCl (Normodyne) 20 mg SLOW IVP Q10MIN PRN PRN Reason: Hypertension Last Admin: 08/15/18 05:42 Dose: 20 mg Lorazepam (Ativan) 2 mg SLOW IVP Q1H PRN PRN Reason: Anxiety/Agitation Last Admin: 08/23/18 12:17 Dose: 2 mg Lorazepam (Ativan) 1 mg SLOW IVP Q4H [facility] Last Admin: 08/23/18 09:06 Dose: 1 mg Magnesium Oxide (Magnesium Oxide) 400 mg PO BIDPRN PRN PRN Reason: FOR SERUM MAG 1.4 - 2.0 Magnesium Oxide (Magnesium Oxide) 800 mg PO PRN PRN PRN Reason: FOR SERUM MAG < 1.4 Methylprednisolone Sodium Succinate (Solu-Medrol) 20 mg IVP DAILY [facility] Last Admin: 08/23/18 09:06 Dose: 20 mg Metoprolol Tartrate (Lopressor) 25 mg PO BID [facility] Last Admin: 08/23/18 09:06 Dose: 25 mg Miscellaneous Medication (Phos-Nak) 1 pkt PO TIDPRN PRN PRN Reason: FOR PHOS LEVEL 1.0 - 1.8 Miscellaneous Medication (Phos-Nak) 2 pkt PO TIDPRN PRN PRN Reason: FOR PHOS LEVEL 0.5 - 1.0 Morphine Sulfate (Morphine) 4 mg SLOW IVP Q1H PRN PRN Reason: Moderate Pain (4-6) Last Admin: 08/19/18 02:32 Dose: 4 mg Discontinue Previous Narcotic Pain Medications And Benzodiazepines 1 each FS .ONE [facility] Stop: 09/10/18 15:36 Ccu Electrolyte (Replacement Protocol) 0 each FS PRN PRN PRN Reason: FOR ELECTROLYTE REPLACEMENT Ondansetron HCl (Zofran) 4 mg IVP Q6H PRN PRN Reason: Nausea/Vomiting Last Admin: 08/11/18 03:33 Dose: 4 mg Pantoprazole Sodium (Protonix) 40 mg PO DAILY [facility] Last Admin: 08/23/18 09:06 Dose: 40 mg Potassium Chloride (K-Dur) 40 meq PO ASDIR PRN PRN Reason: FOR SERUM K+ 2.5 - 3.5 Potassium Chloride (Klor-Con) 40 meq PER TUBE ASDIR PRN PRN Reason: FOR SERUM K+ 2.5-3.5 Promethazine HCl (Phenergan) 12.5 mg IM/IV Q4H PRN PRN Reason: Nausea/Vomiting Propofol (Diprivan) 1,000 mg IV INF PRN; Protocol PRN Reason: TO ACHIEVE GOAL RASS Stop: 09/19/18 10:28 Last Admin: 08/23/18 05:48 Dose: 1,000 mg Propofol (Diprivan Bolus) 20 mg IV Q5MIN PRN PRN Reason: BREAKTHROUGH AGITATION Stop: 09/19/18 10:28 Simvastatin (Zocor) 40 mg PO DAILY [facility] Last Admin: 08/23/18 09:06 Dose: 40 mg Sodium Bicarbonate (Bicarbonate, Sodium) 650 mg PER TUBE .PER PROTOCOL PRN PRN Reason: ENTERAL TUBE OCCLUSION Sodium Chloride (Flush - Normal Saline) 10 ml IVF Q12HR [facility] Last Admin: 08/23/18 09:07 Dose: 10 ml Sodium Chloride (Flush - Normal Saline) 10 ml IVF PRN PRN PRN Reason: Saline Flush
--- NOTE | 2018-08-23 15:13 | PRG ---
DATE OF SERVICE: 08/23/2018 SUBJECTIVE: Mr. Fernandes remains in the ICU intubated. He has had a tracheostomy. I have talked with the nurses. He does have bowel movements. He is having no bleeding. I talked with the family. A decision was made. They are going to try to start weaning him off the trach collar BiPAP t o see if he can tolerate that. If he cannot, they are going to move towards palliative care. OBJECTIVE: VITAL SIGNS: Blood pressure is 124/46, pulse 91, respirations 18, temperature 100.6. LUNGS: Notable for some rhonchi and slight wheezing. ABDOMEN: Soft and nontender. LABORATORY DATA: White count is 10, hemoglobin is 8.4, platelet count is 222,000. Sodium 153, potas sium 3.7, chloride 121, BUN and creatinine are 40 and 0.7. ASSESSMENT: 1. Gastrointestinal bleed, resolved, endoscopic control, then had some decompensation and went to [facility] OR and had definitive surgical therapy. 2. Anemia from gastrointestinal bleed, stable with no active bleeding. 3. Respiratory failure after oversew of duodenal ulcer with inability to recover, likely based on linda baseline chronic obstructive pulmonary disease. 4. Deconditioning. 5. Schizophrenia. 6. Hyperkalemia and hypernatremia. He has been started on more free water by Pulmonary Services. D eferred that to them as they are trying to balance the acid base status in terms of his respiratory s ituation and then getting weaned. RECOMMENDATIONS: At this time, no further GI recommendations. Continue PPI therapy. Continue feedi ng. He did have a positive H. pylori antibody and this can be treated at a later time if he survives this hospitalization.
--- NOTE | 2018-08-23 18:35 | PRG ---
DATE OF SERVICE: 08/23/2018 SUBJECTIVE: Mr. Fernandes has ventilatory support reduced more today. I met with his mom and his s ister. I have explained that it is very hard to know how much of his dyspnea on exertion prior to ad mission was related to a severe anemia and how much was related to chronic obstructive pulmonary dise ase and deconditioning. I suspect it is a combination with COPD and deconditioning being the biggest factors. In any event, he is not progressing as quickly as I would like with the tracheostomy in. OBJECTIVE: LUNGS: Remarkable for coarse equal breath sounds. CARDIOVASCULAR: Regular rhythm. ABDOMEN: Soft. Intake and output is negative 236. LABORATORY DATA: White count 10.2, hemoglobin 8.4, platelets 222,000. Sodium 153, potassium 3.7, ch loride 121, bicarbonate 25, BUN 40, creatinine 0.79. I have ordered a chest x-ray for tomorrow. He did have a fever. Blood cultures were ordered earlier . He continues with Haldol. Free water was ordered intravenously yesterday. The family appears to be comfortable with whatever comes. They will be happy if he survives, but the y also very quickly acknowledged that if he does not survive, they are already accepting that. I have explained to him that we will not increase ventilatory support in each day. The plan is to de crease ventilatory support and try to keep him comfortable while we were trying to get him to a trach collar. I suspect he will either reach a point where he in the ICU or ends up in an inp atient hospice situation. I do not see him surviving long based on his current clinical condition. I answered all their questions to their satisfaction. Critical care time, 30 minutes.
[2018-08-24] MEDS: Dextrose 5% in Water 1,000 ML IV SCH ×2 (00:11→11:50)
[2018-08-24] MEDS: Lorazepam 2 MG/ML VIAL SLOW IVP PRN ×9 (02:08→17:20)
[2018-08-24] MEDS: Lorazepam 2 MG/ML VIAL SLOW IVP SCH ×6 (02:08→20:58)
[2018-08-24 05:57] LABS: Anion Gap 11 mmol/L (10-20); BUN (Urea Nitrogen) 54 mg/dL (8.4-25.7); Calc. Creatinine Clearance 68 mL/min (70-130); Calcium 7.8 mg/dL (7.8-10.44); Carbon Dioxide 24 mmol/L (23-31); Chloride 118 mmol/L (98-107); Estimated GFR-MDRD 73; Glucose 130 mg/dL (80-115); Potassium 3.6 mmol/L (3.5-5.1); Sodium 149 mmol/L (136-145)
[2018-08-24] MEDS: Haloperidol Lactate 5 MG/ML VIAL IM SCH ×4 (06:12→23:48)
[2018-08-24] MEDS: Propofol 1,000 MG/100 ML VIAL IV PRN ×2 (06:13→15:02)
[2018-08-24 06:51] LABS: Hemoglobin 7.8 g/dL (14.0-18.0); Mean Corpuscular HGB CONC 31.7 g/dL (32.0-36.0); Mean Corpuscular Hemoglobin 31.1 pg (27.0-31.0); Mean Corpuscular Volume 98.1 fL (78.0-98.0); Mean Platelet Volume 9.5 fL (7.4-10.4); Platelet Count 226 thou/uL (130-400); RBC Distribution Width 15.2 % (11.5-14.5); Red Blood Cell (RBC) Count 2.51 mill/uL (4.70-6.10); White Blood Cell (WBC) Count 10.8 thou/uL (4.8-10.8)
[2018-08-24 06:55] LABS: Band 16 % (5-11); Lymphocytes 9 % (21-51); MDiff Complete? YES; Monocytes 17 % (0-10); Neutrophil 58 % (42-75)
--- NOTE | 2018-08-24 08:56 | RAD ---
CHEST ONE VIEW: History: Dyspnea. Comparison: 08-21-18 FINDINGS: Cardiac silhouette is magnified by projection. Patient remains rotated rightward. Pulmonary vasculatu re is unremarkable. Lines and tubes are unchanged in position. Lungs remain hyperinflated. IMPRESSION: Stable radiographic appearance of the chest. POS: ANDREI
[2018-08-24] MEDS: Digoxin 0.125 MG TAB PO SCH (09:07)
[2018-08-24] MEDS: Metoprolol Tartrate 25 MG TAB PO SCH ×2 (09:08→20:57)
[2018-08-24] MEDS: Pantoprazole 40 MG GRANULES PACKET PO SCH (09:08)
[2018-08-24] MEDS: Simvastatin 40 MG TAB PO SCH (09:08)
--- NOTE | 2018-08-24 10:00 | PRG ---
DATE OF SERVICE: 08/24/2018 SUBJECTIVE: Mr. Fernandes is still requiring sedation for mechanical ventilation. He is intermitte ntly tachypneic still. He does still have signs of respiratory and muscle fatigue. We will continue to make ventilator changes with a goal of getting him on a trach collar tomorrow. OBJECTIVE: VITAL SIGNS: His heart rate is in the 90s, blood pressure 120/36, respiratory rate is in the teens. LUNGS: Remarkable for coarse equal breath sounds. HEART: Regular rhythm. ABDOMEN: Soft. EXTREMITIES: Without asymmetry or edema. LABORATORY DATA: White count is 10.8, hemoglobin is 7.8, platelets 226. Sodium 149, potassium 3.6, chloride 118, bicarbonate 24, BUN 54, creatinine 1.01. No longer doing daily blood gases on him. Chest radiograph shows just hyperinflated lung addison. IMPRESSION: 1. Respiratory failure, after an oversew of a duodenal ulcer done emergently for gastrointestinal bl eeding. 2. Probable advanced obstructive lung disease as mentioned in previous notes. 3. Respiratory failure with a tracheostomy in place. He will go on a trach collar tomorrow. If he is stable, then we can consider inpatient hospice. I am not optimistic, at this point, that he can r ecover from this and his family understands that.
[2018-08-24 10:24] LABS: ALT (SGPT) 71 U/L (8-55); AST (SGOT) 46 U/L (5-34); Alkaline Phosphatase 86 U/L (40-150); Bilirubin, Direct 0.4 mg/dL (0.1-0.3); Bilirubin, Total 0.8 mg/dL (0.2-1.2); Protein, Total 5.7 g/dL (5.8-8.1)
[2018-08-24] MEDS: Acetaminophen 325 MG/10.15 ML UDCUP PER TUBE PRN (11:43)
[2018-08-24] MEDS: Morphine 4 MG/ML VIAL SLOW IVP PRN ×3 (13:29→17:20)
--- NOTE | 2018-08-24 14:21 | PDOC.PN ---
- Subjective Encounter Start Date: 08/24/18 Encounter Start Time: 08:00 Pt seen for followup re; GI bleed. s/p trach, lethargic, unable to complete ROS. - Objective Resuscitation Status: Resuscitation Status DNR:Do Not Resuscitate Vital Signs & Weight: Vital Signs (12 hours) Temp Pulse Resp BP 08/24/18 12:43 94 130/44 L 08/24/18 10:38 85 134/50 L 08/24/18 09:07 98 08/24/18 08:01 98 120/36 L 08/24/18 08:00 101.6 F H 08/24/18 06:00 14 08/24/18 04:00 100.8 F H 16 Weight Admit Weight 168 lb 11.199 oz Weight 150 lb 12.739 oz Most Recent Monitor Data Heart Rate from ECG 99 NIBP 126/43 NIBP BP-Mean 83 Respiration from ECG 47 SpO2 98 I&O: 08/23/18 08/24/18 08/25/18 06:59 06:59 06:59 Intake Total 1819 3122.3 90 Output Total 2055 1510 370 Balance -236 1612.3 -280 Result Diagrams: 08/24/18 05:15 08/24/18 05:15 Phys Exam - Physical Examination lethargic HEENT: moist MMs tracheostomy Respiratory: clear to auscultation bilateral Cardiovascular: RRR No spontaneous limb movements Deviation from normal: Unable to assess Dx/Plan (1) GI bleed Code(s): K92.2 - GASTROINTESTINAL HEMORRHAGE, UNSPECIFIED Status: Acute Comment: on IV Protonix (2) Atrial tachycardia Code(s): I47.1 - SUPRAVENTRICULAR TACHYCARDIA Status: Acute Comment: continue digoxin (3) Duodenal ulcer Status: Acute Comment: continue Protonix (4) HTN (hypertension) Code(s): I10 - ESSENTIAL (PRIMARY) HYPERTENSION Status: Chronic Comment: controlled - Plan * . Pt for hospice, prognosis poor Review of Systems - Medications/Allergies Allergies/Adverse Reactions: Allergies Allergy/AdvReac Type Severity Reaction Status Date / Time Penicillins Allergy Rash Verified 08/11/18 04:01 Medications: Current Medications Acetaminophen (Tylenol Elixir) 650 mg PER TUBE Q8H PRN PRN Reason: Fever/Mild Pain Last Admin: 08/24/18 11:43 Dose: 650 mg Albuterol/Ipratropium (Duoneb) 3 ml NEB [id number] REPLACED BY [facility] Last Admin: 08/24/18 10:37 Dose: 3 ml Albuterol/Ipratropium (Duoneb) 3 ml NEB PRN PRN PRN Reason: Dyspnea/Wheezing/SOB Lipase/Protease/Amylase (Madeline Issa [id number]) 1 cap FS .PER PROTOCOL PRN PRN Reason: TUBE OCCLUSION PROTOCOL Digoxin (Lanoxin) 0.125 mg PO QAM REPLACED BY [facility] Last Admin: 08/24/18 09:07 Dose: 0.125 mg Diltiazem HCl (Cardizem) 30 mg PO ACHS REPLACED BY [facility] Last Admin: 08/24/18 11:43 Dose: 30 mg Fosinopril Sodium (Monopril) 40 mg PO DAILY REPLACED BY [facility] Last Admin: 08/24/18 09:07 Dose: 40 mg Haloperidol Lactate (Haldol) 10 mg IM Q6HR REPLACED BY [facility] Last Admin: 08/24/18 11:43 Dose: 10 mg Potassium Chloride 40 meq/ (Sodium Chloride) 270 mls @ 135 mls/hr IVPB ASDIR PRN PRN Reason: FOR SERUM K+ 2.5 - 3.5 Last Admin: 08/21/18 15:45 Dose: 270 mls Potassium Chloride 40 meq/ (Device) 100 mls @ 50 mls/hr IVPB ASDIR PRN PRN Reason: FOR SERUM K+ 2.5 - 3.5 Magnesium Sulfate 1 gm/ Sodium (Chloride) 102 mls @ 102 mls/hr IV PRN PRN PRN Reason: MAG LEVEL 1.4 - 2.0 Potassium Phosphate 9 mmol/ (Sodium Chloride) 103 mls @ 25.75 mls/hr IVPB ASDIR PRN PRN Reason: Phosphate 1.0-1.8 Potassium Phosphate 12 mmol/ (Sodium Chloride) 254 mls @ 63.5 mls/hr IV ASDIR PRN PRN Reason: Serum phosphate 0.5-0.9 Potassium Phosphate 15 mmol/ (Sodium Chloride) 255 mls @ 63.75 mls/hr IV ASDIR PRN PRN Reason: Serum Phos < 0.5 Magnesium Sulfate 2 gm/ Sodium (Chloride) 104 mls @ 100 mls/hr IVPB ASDIR REPLACED BY [facility] Last Admin: 08/11/18 19:40 Dose: 104 mls Fentanyl Citrate 2,000 mcg/ (Sodium Chloride) 100 mls @ 0 mls/hr IV INF REPLACED BY [facility]; Protocol Stop: 09/19/18 10:28 Fentanyl Citrate (Fentanyl Bolus) 250 mls @ 0 mls/hr IVPB PRN PRN PRN Reason: Breakthrough pain/agitation Stop: 09/19/18 10:28 Dextrose/Water (D5w) 1,000 mls @ 75 mls/hr IV .[id number] REPLACED BY [facility] Last Admin: 08/24/18 11:50 Dose: 1,000 mls Labetalol HCl (Normodyne) 20 mg SLOW IVP Q10MIN PRN PRN Reason: Hypertension Last Admin: 08/15/18 05:42 Dose: 20 mg Lorazepam (Ativan) 2 mg SLOW IVP Q1H PRN PRN Reason: Anxiety/Agitation Last Admin: 08/24/18 12:51 Dose: 2 mg Lorazepam (Ativan) 1 mg SLOW IVP Q4H REPLACED BY [facility] Last Admin: 08/24/18 13:29 Dose: Not Given Magnesium Oxide (Magnesium Oxide) 400 mg PO BIDPRN PRN PRN Reason: FOR SERUM MAG 1.4 - 2.0 Magnesium Oxide (Magnesium Oxide) 800 mg PO PRN PRN PRN Reason: FOR SERUM MAG < 1.4 Methylprednisolone Sodium Succinate (Solu-Medrol) 20 mg IVP DAILY REPLACED BY [facility] Last Admin: 08/24/18 09:07 Dose: 20 mg Metoprolol Tartrate (Lopressor) 25 mg PO BID REPLACED BY [facility] Last Admin: 08/24/18 09:08 Dose: 25 mg Miscellaneous Medication (Phos-Nak) 1 pkt PO TIDPRN PRN PRN Reason: FOR PHOS LEVEL 1.0 - 1.8 Miscellaneous Medication (Phos-Nak) 2 pkt PO TIDPRN PRN PRN Reason: FOR PHOS LEVEL 0.5 - 1.0 Morphine Sulfate (Morphine) 4 mg SLOW IVP Q1H PRN PRN Reason: Moderate Pain (4-6) Last Admin: 08/24/18 13:29 Dose: 4 mg Discontinue Previous Narcotic Pain Medications And Benzodiazepines 1 each FS .ONE REPLACED BY [facility] Stop: 09/10/18 15:36 Ccu Electrolyte (Replacement Protocol) 0 each FS PRN PRN PRN Reason: FOR ELECTROLYTE REPLACEMENT Ondansetron HCl (Zofran) 4 mg IVP Q6H PRN PRN Reason: Nausea/Vomiting Last Admin: 08/11/18 03:33 Dose: 4 mg Pantoprazole Sodium (Protonix) 40 mg PO DAILY REPLACED BY [facility] Last Admin: 08/24/18 09:08 Dose: 40 mg Potassium Chloride (K-Dur) 40 meq PO ASDIR PRN PRN Reason: FOR SERUM K+ 2.5 - 3.5 Potassium Chloride (Klor-Con) 40 meq PER TUBE ASDIR PRN PRN Reason: FOR SERUM K+ 2.5-3.5 Promethazine HCl (Phenergan) 12.5 mg IM/IV Q4H PRN PRN Reason: Nausea/Vomiting Propofol (Diprivan) 1,000 mg IV INF PRN; Protocol PRN Reason: TO ACHIEVE GOAL RASS Stop: 09/19/18 10:28 Last Admin: 08/24/18 06:13 Dose: 1,000 mg Propofol (Diprivan Bolus) 20 mg IV Q5MIN PRN PRN Reason: BREAKTHROUGH AGITATION Stop: 09/19/18 10:28 Simvastatin (Zocor) 40 mg PO DAILY REPLACED BY [facility] Last Admin: 08/24/18 09:08 Dose: 40 mg Sodium Bicarbonate (Bicarbonate, Sodium) 650 mg PER TUBE .PER PROTOCOL PRN PRN Reason: ENTERAL TUBE OCCLUSION Sodium Chloride (Flush - Normal Saline) 10 ml IVF Q12HR REPLACED BY [facility] Last Admin: 08/24/18 09:08 Dose: 10 ml Sodium Chloride (Flush - Normal Saline) 10 ml IVF PRN PRN PRN Reason: Saline Flush
[2018-08-25] MEDS: Dextrose 5% in Water 1,000 ML IV SCH (01:18)
[2018-08-25] MEDS: Lorazepam 2 MG/ML VIAL SLOW IVP SCH ×3 (01:18→10:29)
[2018-08-25 04:31] LABS: #Eosinphils 0.1 thou/uL (0.0-0.7); #Lymphocytes 1.1 thou/uL (1.20-3.40); #Monocytes 1.2 thou/uL (0.11-0.59); #Neutrophils 8.9 thou/uL (1.40-6.50); %Basophils 0.3 % (0.0-1.0); %Eosinophils 0.5 % (0.0-10.0); %Lymphocytes 9.7 % (21.0-51.0); %Monocytes 10.4 % (0.0-10.0); %Neutrophils 79.1 % (42.0-75.0); Hemoglobin 7.4 g/dL (14.0-18.0); Mean Corpuscular HGB CONC 30.9 g/dL (32.0-36.0); Mean Corpuscular Hemoglobin 30.5 pg (27.0-31.0); Mean Corpuscular Volume 98.8 fL (78.0-98.0); Mean Platelet Volume 9.3 fL (7.4-10.4); Platelet Count 212 thou/uL (130-400); RBC Distribution Width 15.3 % (11.5-14.5); Red Blood Cell (RBC) Count 2.43 mill/uL (4.70-6.10); White Blood Cell (WBC) Count 11.2 thou/uL (4.8-10.8)
[2018-08-25] MEDS: Propofol 1,000 MG/100 ML VIAL IV PRN (04:35)
[2018-08-25] MEDS: Acetaminophen 325 MG/10.15 ML UDCUP PER TUBE PRN (04:35)
[2018-08-25 04:48] LABS: Band 9 % (5-11); Hemoglobin 7.4 g/dL (14.0-18.0); Lymphocytes 16 % (21-51); MDiff Complete? YES; Mean Corpuscular Hemoglobin 30.7 pg (27.0-31.0); Mean Corpuscular Volume 98.9 fL (78.0-98.0); Mean Platelet Volume 9.4 fL (7.4-10.4); Monocytes 5 % (0-10); Neutrophil 70 % (42-75); Nucleated RBC 1 % (0); Platelet Count 208 thou/uL (130-400); RBC Distribution Width 15.4 % (11.5-14.5); Red Blood Cell (RBC) Count 2.42 mill/uL (4.70-6.10); White Blood Cell (WBC) Count 11.4 thou/uL (4.8-10.8)
[2018-08-25 04:54] LABS: Anion Gap 10 mmol/L (10-20); BUN (Urea Nitrogen) 56 mg/dL (8.4-25.7); Calc. Creatinine Clearance 71 mL/min (70-130); Calcium 8.1 mg/dL (7.8-10.44); Carbon Dioxide 25 mmol/L (23-31); Chloride 117 mmol/L (98-107); Estimated GFR-MDRD 77; Glucose 128 mg/dL (80-115); Potassium 4.1 mmol/L (3.5-5.1); Sodium 148 mmol/L (136-145)
[2018-08-25] MEDS: Haloperidol Lactate 5 MG/ML VIAL IM SCH ×2 (05:41→10:32)
[2018-08-25 06:36] VITALS: BMI 20.5
[2018-08-25 07:02] VITALS: BP 137/45
[2018-08-25 07:55] VITALS: TEMP 101.7
--- NOTE | 2018-08-25 08:17 | RAD ---
CHEST ONE VIEW: History: Dyspnea. FOllow up. Comparison: 08-24-18 FINDINGS: Cardiac silhouette is magnified by projection. Pulmonary vasculature unremarkable. Lungs remain hyper inflated with scattered areas of linear atelectasis, stable. Old right rib fractures are again demons trated. Tracheostomy appliance and nasogastric tube are unchanged in position. quality assurance monitor leads overlie the chest. IMPRESSION: Stable radiographic appearance of the chest. POS: [facility]
[2018-08-25] MEDS: Metoprolol Tartrate 25 MG TAB PO SCH (10:26)
[2018-08-25] MEDS: Digoxin 0.125 MG TAB PO SCH (10:26)
[2018-08-25] MEDS: Pantoprazole 40 MG GRANULES PACKET PO SCH (10:26)
[2018-08-25] MEDS: Simvastatin 40 MG TAB PO SCH (10:27)
--- NOTE | 2018-08-25 13:01 | PDOC.PN ---
- Subjective Encounter Start Date: 08/25/18 Encounter Start Time: 07:00 Pt seen for followup re: GI bleed. Lethargic, not opening eyes, not answering questions, unable to complete ROS. - Objective Resuscitation Status: Resuscitation Status DNR:Do Not Resuscitate MAR Reviewed: Yes Vital Signs & Weight: Vital Signs (12 hours) Temp Pulse Resp BP Pulse Ox 08/25/18 10:26 96 08/25/18 08:00 96 08/25/18 07:00 101.7 F H 08/25/18 06:59 96 137/45 L 08/25/18 06:00 101.3 F H 18 08/25/18 04:00 102.6 F H 41 H 08/25/18 02:29 93 40 H 94 L 08/25/18 02:00 38 H Weight Admit Weight 168 lb 11.199 oz Weight 151 lb 7.321 oz Most Recent Monitor Data Heart Rate from ECG 87 NIBP 93/38 NIBP BP-Mean 66 Respiration from ECG 41 SpO2 80 I&O: 08/24/18 08/25/18 08/26/18 06:59 06:59 06:59 Intake Total 3122.3 3580.2 Output Total 1510 2360 120 Balance 1612.3 1220.2 -120 Result Diagrams: 08/25/18 04:10 08/25/18 04:10 EKG Reviewed by me: Yes (Tele: NSR) Phys Exam - Physical Examination lethargy HEENT: moist MMs s/p trach Respiratory: clear to auscultation bilateral Cardiovascular: RRR Gastrointestinal: soft Deviation from normal: Unable to assess Dx/Plan (1) GI bleed Code(s): K92.2 - GASTROINTESTINAL HEMORRHAGE, UNSPECIFIED Status: Acute Comment: continuing IV Protonix (2) Atrial tachycardia Code(s): I47.1 - SUPRAVENTRICULAR TACHYCARDIA Status: Acute Comment: on digoxin (3) Duodenal ulcer Status: Acute Comment: on Protonix (4) HTN (hypertension) Code(s): I10 - ESSENTIAL (PRIMARY) HYPERTENSION Status: Chronic Comment: controlled - Plan * . No signs of improvement. Pt appears comfortable. Review of Systems - Medications/Allergies Allergies/Adverse Reactions: Allergies Allergy/AdvReac Type Severity Reaction Status Date / Time Penicillins Allergy Rash Verified 08/11/18 04:01
--- NOTE | 2018-08-25 15:58 | PRG ---
DATE OF SERVICE: 08/25/2018 SUBJECTIVE: Mr. Fernandes was placed on trach collar earlier today per original plan. He continued with some propofol sedation as he did have excellent spontaneous respiratory effort. OBJECTIVE: LUNGS: Clear. HEART: Regular rhythm. ABDOMEN: Soft. Family said they wanted really only comfort measures. I evaluated him on a trach collar and he appeared to have adequate muscle reserve for last 24-48 hours. Later in the morning, he became tachypneic with small tidal volume, respiratory pattern and then just suddenly stopped breathing and peacefully. The family was grateful for the care and grateful that he quickly. The body will be released to the home. With multiple family members, I answered all their questions. FARHAN
[2018-08-26 10:55] LABS: Actual Bicarbonate (HCO3a) 29.8 mEq/L (22-28); Analyzer IN Cardio OR; Base Excess (BEa) 3.9 mEq/L (-2.0 to +3.0); Carboxyhemoglobin (COHb) 0.8 gm% (0.0-3.0); Hemoglobin (Hb) 9.2 g/dL (14.0-18.0); O2 Tension (PaO2) 206.1 mmHg (> 80.0); Potassium - ABG Lab 3.63 mmol/L (3.70-5.30); Puncture Site ALINE; pH, Arterial 7.38 (7.35-7.45)
--- NOTE | 2018-08-26 14:48 | DS ---
DATE OF ADMISSION: 08/11/2018 DATE OF : 08/25/2018 PRIMARY CARE PROVIDER: Jer Soni M.D. DISCHARGE DIAGNOSES: 1. Hemorrhagic shock. 2. Upper gastrointestinal bleed. 3. Acute respiratory failure. 4. Shock liver. 5. Pulmonary edema. 6. Suspected aspiration pneumonia. 7. Hyponatremia. 8. Lactic acidosis. 9. Severe LA grade D esophagitis. 10. Large duodenal ulcer. 11. Supraventricular tachycardia. CONSULTATIONS DURING THIS HOSPITALIZATION: Gastroenterology, Dr. Casanova; General surgery, Dr. Pope ; Pulmonary and Critical Care Medicine, Dr. Lozano; and Cardiology, Dr. Ashford. HOSPITAL COURSE: Mr. Fernandes is a 68-year-old gentleman who was admitted to [facility] for GI bleed. Please refer Dr. Hastings's history and physical note dated 08/11/2018 fo r further details. He had active bleeding at the time of admission and needed aggressive resuscitati on. He received packed RBC transfusions and was started on PPI drip. He was also started on antibio tics for possible right lower lobe pneumonia. He underwent EGD after intubation the same day. He wa s found to have severe LA grade III esophagitis as well as a large duodenal ulcer with clot and activ e oozing. He underwent cautery of 3 visible vessels as well as clot removal and injection of epineph rine. That night, he continued to be hypotensive from hemorrhagic shock and was tachycardic. He was taken to the operating room that night and underwent exploratory laparotomy, pyloroplasty and oversew of th e bleeding ulcer. On 08/12/2018, he was found to be in supraventricular tachycardia. He was seen by Cardiology Service and started on diltiazem. He had a 2D echocardiogram that day, which showed left ventricular ejecti on fraction of 60%. Over the next few days, there were difficulties weaning him off of the ventilato r. On 08/20/2018, he underwent tracheostomy. On 08/21/2018, his code status was changed to do not r esuscitate by his family. He continued to have fevers with no clear evidence of infection. On 08/25, goals of care were changed to comfort measures only. All active treatments were withdrawn and comfort measures were implemented. He on 08/25/2018. Many thanks for allowing me to participate in your patient's care. Please feel free to contact me wi th any questions or concerns.
== END 2018-08-25 10:52 | disposition expired | DRG 3 ==
LOC: ERS → IMCU/EMU 01:50 → CCU 12:39
PROVIDERS: ADMIT Hospitalist; ATTEND Hospitalist
PROC: 0W3P7ZZ Control Bleeding in Gastrointestinal Tract, Via Natural or Artificial Opening (ICD-10-PCS; 2018-08-11)
PROC: 5A1955Z Respiratory Ventilation, Greater than 96 Consecutive Hours (ICD-10-PCS; 2018-08-11)
PROC: 30233N1 Transfusion of Nonautologous Red Blood Cells into Peripheral Vein, Percutaneous Approach (ICD-10-PCS; 2018-08-11)
PROC: 3E033XZ Introduction of Vasopressor into Peripheral Vein, Percutaneous Approach (ICD-10-PCS; 2018-08-11)
PROC: 3E0G8GC Introduction of Other Therapeutic Substance into Upper GI, Via Natural or Artificial Opening Endoscopic (ICD-10-PCS; 2018-08-11)
PROC: 0DC68ZZ Extirpation of Matter from Stomach, Via Natural or Artificial Opening Endoscopic (ICD-10-PCS; 2018-08-11)
PROC: 0DC98ZZ Extirpation of Matter from Duodenum, Via Natural or Artificial Opening Endoscopic (ICD-10-PCS; 2018-08-11)
PROC: 30233K1 Transfusion of Nonautologous Frozen Plasma into Peripheral Vein, Percutaneous Approach (ICD-10-PCS; 2018-08-11)
PROC: 30233R1 Transfusion of Nonautologous Platelets into Peripheral Vein, Percutaneous Approach (ICD-10-PCS; 2018-08-11)
PROC: 02HV33Z Insertion of Infusion Device into Superior Vena Cava, Percutaneous Approach (ICD-10-PCS; 2018-08-11)
PROC: 0DL90ZZ Occlusion of Duodenum, Open Approach (ICD-10-PCS; 2018-08-12)
PROC: 0B110F4 Bypass Trachea to Cutaneous with Tracheostomy Device, Open Approach (ICD-10-PCS; principal; 2018-08-20)
DX: K26.0 Acute duodenal ulcer with hemorrhage (principal); J96.01 Acute respiratory failure with hypoxia; K72.00 Acute and subacute hepatic failure without coma; J69.0 Pneumonitis due to inhalation of food and vomit; D62 Acute posthemorrhagic anemia; E87.1 Hypo-osmolality and hyponatremia; E87.2 Acidosis; K22.10 Ulcer of esophagus without bleeding; E87.0 Hyperosmolality and hypernatremia; J44.1 Chronic obstructive pulmonary disease with (acute) exacerbation; F20.0 Paranoid schizophrenia; I47.1 Supraventricular tachycardia; G93.40 Encephalopathy, unspecified; I48.92 Unspecified atrial flutter; R57.8 Other shock; I10 Essential (primary) hypertension; E78.00 Pure hypercholesterolemia, unspecified; E78.5 Hyperlipidemia, unspecified; Z79.82 Long term (current) use of aspirin; E86.0 Dehydration; E87.5 Hyperkalemia; I95.9 Hypotension, unspecified; E87.8 Other disorders of electrolyte and fluid balance, not elsewhere classified; Z66 Do not resuscitate; Z51.5 Encounter for palliative care; F17.210 Nicotine dependence, cigarettes, uncomplicated; G89.29 Other chronic pain; M54.9 Dorsalgia, unspecified; E11.9 Type 2 diabetes mellitus without complications; K20.8 Other esophagitis
CPT/HCPCS: 36415; 36416; 36430; 36556; 70450; 71045; 72125; 80048; 80053; 80076; 80400; 81003; 82533; 82550; 82553; 82805; 83605; 83690; 83735; 83880; 84100; 84484; 85025; 85610; 85730; 86850; 86900; 86901; 87040; 87077; 87086; 93005; 93010; 93306; 94002; 94003; 94640; 96361; 96374; A4216; C9113; J0171; J0670; J0696; J0834; J1100; J1120; J1160; J1170; J1630; J1720; J1940; J2001; J2060; J2250; J2270; J2354; J2405; J2543; J2704; J2920; J3010; J3475; J3480; J3490; J7050; J7070; J7620; P9016; P9035; P9047; P9059